=== PATIENT | female | born 1940 | race Caucasian/White ===

== ENCOUNTER 2016-09-20 13:41 | Outpatient (CLI) | payer MEDICARE, OTHER ==
[~2016-09-20] VITALS: Ht 165.1 cm; Wt 69.1 kg
[~2016-09-20 13:41] MED LIST: ADALAT CC60 MG PO; ALENDRONATE SOD70 M1 PO; ALPARAZOLAM0.5 MG PO; ALPRAZOLAM0.5 MG PO; AMBIEN 10MG10 MG PO; AMBIEN CR12.5 MG PO; AMITRIPTYLINE H25 M1 PO; AMITRIPTYLINE25 MG PO; ASMANEX TW0.22 MG/A1 IH; ASPIR-LOW81 MG PO; ASPIRIN 32325 MG/TAB PO; ASPIRIN E.C. 8181 MG PO; CALCIUM600 MG PO; CAMPRAL333 MG PO; CATAPRES-T0.2 MG/24 TD; CELEBREX 200MG200 MG PO; CITALOPRAM HYDR20 MG PO; CITALOPRAM10 MG PO; CORTEF5 MG PO; CYMBALTA; CYMBALTA 60MG60 MG; CYMBALTA 60MG60 MG PO; DAZIDOX10 MG PO; DEMADEX 20MG20 M1 PO; DILANTIN 100MG100 MG PO; DIOVAN; DIOVAN160 MG PO; EFFEXOR XR75 MG/CAP PO; ELAVIL50 MG PO; FERATE27 MG PO; GLUCOSAMIN 500 PO; GLUCOSAMINE500 M1 PO; HYDROCORTISONE5 M1 PO; HYZAAR 25 MG-101 TAB PO; LEVOTHYROXINE PO; LORTAB 5/500 501 TAB PO; LUTEIN1 BEA; LUTEIN20 M1 PO; LUTEIN20 MG PO; MAG-OX 400400 MG/TAB PO; MAGNESIUM OXID420 MG PO; MELATONIN3 M1 PO; MORPHINE 1515 MG/TAB PO; MORPHINE PUMP; MULTIPLE VITAMI1 CAP PO; MULTIPLE VITAMI1 TA5 PO; MVI; NERVE PAIN MED; NEURONTIN300 MG/CAP PO; NEXIUM 40MG40 MG PO; NEXIUM I.V. 40M40 MG IV; NEXIUM PO; NEXIUM40 MG PO; NITRO-DUR0.4 MG/PAT TD; NUCYNTA ER50 MG PO; NUCYNTA50 MG PO; OMEGA 31000 MG PO; OSTEO-BI-FLEX 21 TAB PO; PERCOCET 325 MG1 TA2 PO; POTASSIUM GLUC550 M1 PO; PREMARIN 0.60.625 MG PO; PREMARIN0.625 MG PO; PROCARDIA XL 3030 MG PO; SALMON OIL PO; SINGULAIR; SINGULAIR 110 MG/TAB PO; SINGULAIR10 MG PO; SPIRIVA HANDIH18 MCG IH; SPIRIVA18 MCG IH; ST. JOSEPH81 M1 PO; SYNTHROID0.125 MG PO; SYNTHROID0.125 MG/T PO; SYNTHROID0.137 MG PO; SYNTHROID0.175 MG PO; TESSALON PERLE200 MG PO; TRAMADOL50 MG PO; TRAZODONE150 MG PO; TYLENOL 325MG325 MG PO; TYLENOL 500MG500 MG PO; UNABLE; VITAMIN B COMPL1 TA1 PO; VITAMIN B121000 MC2 SL; VITAMIN C500 MG PO; VITAMIN D1000 IU PO; VITAMIN D31000 IU PO; VITAMIN D32000 I1 PO; VOLTAREN50 MG PO; XANAX 0.5MG0.5 MG PO; ZOLPIDEM5 MG PO; [UNRECOGNIZED DRUG - SUPPLY]; spiriva inhaler
[2016-09-20 14:12] VITALS: BP 115/50; PULSE 81; TEMP 97.7
[2016-09-20] MEDS ORDERED: MIRALAX PA17 GM/Dose PO (15:31)
[2016-09-20] MEDS ORDERED: CALCIUM 600600 MG PO (15:32)
[2016-09-20] MEDS ORDERED: COLACE 100100 MG/CAP PO (15:32)
[2016-09-20] MEDS ORDERED: MOVANTIK25 MG PO (15:35)
[2016-09-20] MEDS ORDERED: NATURAL POTASS595 MG PO (15:36)
[2016-09-20] MEDS ORDERED: OMEGA-31 SGL PO (15:37)
[2016-09-20] MEDS ORDERED: PERCOCET 325 MG1 TA2 PO (15:39)
[2016-09-20] MEDS ORDERED: GLUCOSAMINE 1000 (15:39)
[2016-09-20] MEDS ORDERED: B-121000 MCG PO (15:40)
[2016-09-20] MEDS ORDERED: VITAMIN D31000 I1 PO (15:41)
== END 2016-09-20 15:50 | disposition home or self-care (01) ==
LOC: EUO 13:41
DX: M81.0 Age-related osteoporosis without current pathological fracture (principal)
CPT/HCPCS: J3489

== ENCOUNTER → 2016-12-01 | Outpatient (CLI) | payer MEDICARE, OTHER ==
[~2016-12-01] MED LIST changes: +B-121000 MCG PO; +CALCIUM 600600 MG PO; +COLACE 100100 MG/CAP PO; +GLUCOSAMINE 1000; +MIRALAX PA17 GM/Dose PO; +MOVANTIK25 MG PO; +NATURAL POTASS595 MG PO; +OMEGA-31 SGL PO; +VITAMIN D31000 I1 PO
== END ==
LOC: COL.RAD 11-28 13:00
DX: M25.511 Pain in right shoulder (principal); M19.011 Primary osteoarthritis, right shoulder; M25.711 Osteophyte, right shoulder

== ENCOUNTER → 2018-01-29 | Outpatient (CLI) | payer MEDICARE, OTHER ==
[~2018-01-29] MED LIST changes: +CARDI-OMEGA1000 MG PO; +CYMBALTA 30MG30 MG PO; +LEVOXYL0.125 MG PO; +LIPITOR 40MG TA40 MG PO; -LUTEIN20 MG PO; -OMEGA-31 SGL PO; -VITAMIN D31000 I1 PO; +VITAMIND3 5000 PO
== END ==
LOC: COL.RAD 09:20
DX: M85.89 Other specified disorders of bone density and structure, multiple sites (principal); G93.9 Disorder of brain, unspecified; Z87.81 Personal history of (healed) traumatic fracture; Z96.612 Presence of left artificial shoulder joint; M43.26 Fusion of spine, lumbar region

== ENCOUNTER 2018-05-17 15:18 | Outpatient (CLI) | payer MEDICARE, OTHER ==
[~2018-05-17] VITALS: Ht 165.1 cm; Wt 59.8 kg
[2018-05-17 16:07] VITALS: BP 100/55; PULSE 77; TEMP 98.3
== END 2018-05-17 18:00 | disposition home or self-care (01) ==
LOC: EUO 15:18
DX: M81.0 Age-related osteoporosis without current pathological fracture (principal)
CPT/HCPCS: J3489

== ENCOUNTER → 2018-06-03 | Outpatient (CLI) | payer MEDICARE, OTHER | LOC: COL.RAD 10:32 | DX: D47.2 Monoclonal gammopathy (principal) | CPT/HCPCS: Q9967 ==

== ENCOUNTER → 2018-10-16 | Outpatient (CLI) | payer MEDICARE, OTHER | LOC: COL.RAD 17:19 | DX: G31.9 Degenerative disease of nervous system, unspecified (principal); J32.1 Chronic frontal sinusitis; W19.XXXA Unspecified fall, initial encounter; Z86.73 Personal history of transient ischemic attack (TIA), and cerebral infarction without residual deficits ==

== ENCOUNTER 2018-11-27 17:41 | Inpatient (IN) | payer MEDICARE, OTHER ==
[2018-11-27] VITALS (55 sets, daily range): BP systolic 180; BP diastolic 96; PULSE 87; TEMP 98.3; O2SAT 90–96
[~2018-11-27] VITALS: Ht 162.6 cm; Wt 55.4 kg
[~2018-11-27 17:41] MED LIST changes: +KLOR-CON M2020 MEQ PO; +MACROBID 1100 MG/CAP PO
[2018-11-27 18:44] LABS: BASO # 0.1 (0.0-0.2); BASO % 0.9 % (0.0-2.0); GRAN # 6.1 (1.4-6.5); HEMATOCRIT 38.2 % (37.0-47.0); HEMOGLOBIN 12.5 g/dl (12.5-16.0); LYMPH # 0.9 (1.2-3.4); MEAN CELL VOLUME 86 fl (80.0-100.0); MEAN CORPUSCULAR HEMOGLOBIN 28 pg (27.0-31.0); MEAN CORPUSCULAR HGB CONC 33 g/dl (33.0-37.0); MONO # 0.5 (0.1-0.6); MONO % 6.4 % (1.7-9.3); PLATELET COUNT 307 K/mm3 (130-400); RED BLOOD COUNT 4.43 M/mm3 (4.10-5.30); REDCELL DISTRIBUTION WIDTH-CV 13.2 % (11.5-14.5)
[2018-11-27 18:55] LABS: ALBUMIN 3.8 gm/dL (3.5-5.0); BILIRUBIN,TOTAL 0.6 mg/dL (0.0-1.0); CALCIUM 9.9 mg/dL (8.4-10.2); CREATININE, serum 0.61 (0.52-1.25); POTASSIUM 3.4 mmol/L (3.4-5.0); TOTAL PROTEIN 7.5 gm/dL (6.4-8.2)
[2018-11-27] MEDS ORDERED: CALCIUM CARBON650 M2 PO (20:07)
[2018-11-27] MEDS ORDERED: COLACE 100100 MG/CAP PO ×2 (20:08)
[2018-11-27] MEDS ORDERED: GLUCOSAMIN 500 PO (20:09)
[2018-11-27] MEDS ORDERED: OMEGA-31 SGL PO (20:30)
[2018-11-27] MEDS ORDERED: RECLAST5 MG/100 M IV (20:31)
[2018-11-27] MEDS ORDERED: TRIAMCINOLONE A15 G3 TP (20:32)
[2018-11-27] MEDS ORDERED: TYLENOL 325MG325 MG PO (20:34)
[2018-11-27] MEDS ORDERED: MOVANTIK25 MG PO (20:35)
[2018-11-27] MEDS ORDERED: CYMBALTA 60MG60 MG PO (20:36)
[2018-11-27] MEDS ORDERED: NEURONTIN300 MG/CAP PO (20:37)
[2018-11-27] MEDS ORDERED: XANAX 0.5MG0.5 MG PO (20:38)
[2018-11-27] MEDS ORDERED: NUCYNTA ER50 MG PO (20:40)
[2018-11-27] MEDS ORDERED: FORTAMET500 M1 PO (20:45)
[2018-11-27] MEDS ORDERED: NEXIUM 40MG40 MG PO (20:46)
[2018-11-27] MEDS ORDERED: KLOR-CON M2020 MEQ PO (20:48)
[2018-11-27 22:12] LABS: COLLECTION METHOD CLEAN CATCH
[2018-11-27 22:18] LABS: PH 6 (5-8); SQUAMOUS EPITHELIAL None Seen /hpf; URINE APPEARANCE Clear; URINE BACTERIA None Seen /hpf; URINE BILIRUBIN Negative (NEGATIVE); URINE BLOOD Negative (NEGATIVE); URINE COLOR Yellow; URINE GLUCOSE Negative (NEGATIVE); URINE KETONE Trace (NEGATIVE); URINE LEUKOCYTE ESTERASE Negative (NEGATIVE); URINE NITRATE Negative (NEGATIVE); URINE PROTEIN(semi-quant) 1+ (NEGATIVE); URINE RBC 0-2 /hpf; URINE UROBILINOGEN Negative (NEGATIVE)
--- NOTE | 2018-11-27 23:20 | NUR ---
PT HAS WOUND TO LEFT LOWER BACK COVERED WITH MEPILEX WITH SILVER CLOTH UNDERNEATH - WOUND IS STAGE 3 AND BLANCHABLE. WOUND TO RIGHT HEEL COVERED WITH MEPILEX, STAGE 2 AND BLANCHABLE. MEPILEX ON PT LEFT LATERAL FOOT COVERING CALUS - NO OPEN WOUND. PT KNOWS HER FIRST NAME, HUSBANDS FIRST NAME, SONS FIRST NAME, BUT UNAWARE OF LOCATION OR TIME. PT AND SPOUSE ARE POOR HISTORIANS REGARDING TIME FRAMES AND PAST PERTINENT MEDICAL HISTORY. HISTORY GIVEN IN ED TO NURSE DIFFERENT FROM INFO GIVEN UPON ADMISSION. PT DENIES PAIN AT CURRENT TIME.
[2018-11-28] VITALS (93 sets, daily range): BP systolic 129–173; BP diastolic 61–103; PULSE 72–96; TEMP 98–99.5; O2SAT 89–97
[2018-11-28] MEDS ORDERED: NEURONTIN300 MG/CAP PO (00:03)
[2018-11-28] MEDS ORDERED: XANAX 0.5MG0.5 MG PO (00:06)
[2018-11-28] MEDS ORDERED: MACROBID 1100 MG/CAP PO (00:39)
[2018-11-28 06:10] LABS: BASO # 0.1 (0.0-0.2); BASO % 1.1 % (0.0-2.0); EOS # 0.1 (0.0-0.7); EOS % 1.1 % (0-4.0); GRAN # 3.6 (1.4-6.5); GRAN % 68.7 % (42.2-75.2); HEMOGLOBIN 11.9 g/dl (12.5-16.0); LYMPH # 1.1 (1.2-3.4); LYMPH % 19.8 % (20.0-51.0); MEAN CELL VOLUME 87 fl (80.0-100.0); MEAN CORPUSCULAR HEMOGLOBIN 29 pg (27.0-31.0); MEAN CORPUSCULAR HGB CONC 33 g/dl (33.0-37.0); MEAN PLATELET VOLUME 10.5 fl (7.4-10.4); MONO # 0.5 (0.1-0.6); MONO % 8.7 % (1.7-9.3); PLATELET COUNT 287 K/mm3 (130-400); RED BLOOD COUNT 4.18 M/mm3 (4.10-5.30); REDCELL DISTRIBUTION WIDTH-CV 13.2 % (11.5-14.5)
[2018-11-28 06:14] LABS: HEMATOCRIT 36.4 % (37.0-47.0)
[2018-11-28 06:25] LABS: CALCIUM 9.4 mg/dL (8.4-10.2); CHOLESTEROL RISK RATIO 3.2; CREATININE, serum 0.58 (0.52-1.25); MAGNESIUM 1.8 mg/dL (1.6-2.3); PHOSPHOROUS 3.4 mg/dL (2.5-4.5); POTASSIUM 3.5 mmol/L (3.4-5.0)
--- NOTE | 2018-11-28 07:15 | NUR ---
Bedside report recieved from DENNYS Luna. Patient resting in bed asleep. MIVF infusing at ordered rate to uncomplicated RW peripheral IV. Bed alarm armed. Care assumed.
--- NOTE | 2018-11-28 10:08 | NUR ---
Call made to Dr. Abarca's office and message left with front office coordinator with notification of patient consult.
--- NOTE | 2018-11-28 10:17 | NUR ---
Patient transported to medical room 355 via with chart and all belongings sent with. DENNYS Holden at bedside and patient assited to bed placed in low and locked position, call light within reach, rails upx2, and bed alarm armed. MIVF restarted at ordered rate. at bedside. Prior phone report provided. Care transferred.
--- NOTE | 2018-11-28 11:07 | NUR ---
Patient arrived to room at 1025 from ICU. Came via and accompanied patient to room. Was informed by ICU nurse that patient would be having an MRI this morning, which they have already called and took patient, and Dr. Abarca will be rounding on patient when he is done in clinic. Patient is awake and alert sitting up in bed. So far, patient is answering yes/no questions appropriately and did state it was nice to meet you and called staff by correct name. Lung sounds are clear in all lobes with diminished bases bilaterally. Bowel lounds are active in all quadrants. Heart rate is regulary S1S2. Patient is on telemetry. Patient is noted to have signifigant kyphosis. Cap refil is <3 seconds. Has an ulcer to the righ heel which is covered with clean mepilex Stage 3 wound reported to lumbar spine with clean and dry mepilx covering it. There is also a mepilex in place for protection to low back. Patient does see wound care. Patient has a morphine pain in use and a stimulator pacemaker to the back which is reported to not be functional by family. Skin turgor is poor. Pedal pulses are weak and difficult to find. Does have trace-1+ edema to BLEs. Denies having pain at this time. Call light is within reach.
--- NOTE | 2018-11-28 12:15 | NUR ---
First visit from the base remover. No needs right now.
--- NOTE | 2018-11-28 16:20 | NUR ---
ELZA and ELZA sterling met with the patient and patient's , Amos, to discuss discharge plan. The patient lives in [place] with her . She reports independence with ADLs and has a cane and walker. The patient's PCP is Dr. Dominic Navas and she receives her medications from [facility] or [facility]. She reports no difficulties obtaining her meds. The patient does not have advanced directives in EMR, but she states that she does have them completed and that her PCP's office should have a copy. ELZA sterling contacted and requested a copy from the patient's PCP's office. ELZA then discuss physical therapies recommendation of post-acute rehab vs home with spouse. The patient and her report that they are not interested in post-acute rehab at this time. ELZA discussed home health services. The patient and her were also not interested in home health. The patient plans to return home with her upon discharge. No other identified needs at this time, but SW to continue to follow.
--- NOTE | 2018-11-28 18:49 | NUR ---
Report given to oncoming shift. Patient has had uneventful day. is with patient at this time. Call light is within reach.
--- NOTE | 2018-11-28 21:10 | NUR ---
Patient resting in bed, requesting assistance to bedside commode. 1 assist to bedside commode and then returned to bed. Assessment completed- lungs clear, abdominal sounds active, pulses +3, cap refill <3 seconds, no reports of pain. IVF infusing . Stage III pressure ulcer above coccyx, covered with meplex dressing, will change dressing with next ambulation to bedside commode. No further needs at this time.
[2018-11-28 23:39] LABS: FOLATE (FOLIC ACID) 9.2 ng/mL (7.0-31.4)
[2018-11-29 03:52] VITALS: BP 133/66; PULSE 68; TEMP 98.4
--- NOTE | 2018-11-29 05:26 | NUR ---
Pt slept for most of the night, VSS, no reports of pain. HElp ambulating to bedside commode a few times. No needs at this time.
[2018-11-29 05:59] LABS: BASO # 0.1 (0.0-0.2); EOS # 0.1 (0.0-0.7); EOS % 2.5 % (0-4.0); GRAN # 2.9 (1.4-6.5); GRAN % 60.1 % (42.2-75.2); HEMOGLOBIN 10.7 g/dl (12.5-16.0); LYMPH # 1.3 (1.2-3.4); LYMPH % 26.2 % (20.0-51.0); MEAN CELL VOLUME 87 fl (80.0-100.0); MEAN CORPUSCULAR HEMOGLOBIN 28 pg (27.0-31.0); MEAN CORPUSCULAR HGB CONC 33 g/dl (33.0-37.0); MEAN PLATELET VOLUME 9.9 fl (7.4-10.4); MONO # 0.5 (0.1-0.6); MONO % 9.6 % (1.7-9.3); PLATELET COUNT 269 K/mm3 (130-400); RED BLOOD COUNT 3.79 M/mm3 (4.10-5.30); REDCELL DISTRIBUTION WIDTH-CV 13.3 % (11.5-14.5)
[2018-11-29 06:01] LABS: HEMATOCRIT 32.9 % (37.0-47.0)
[2018-11-29 06:12] LABS: CALCIUM 8.7 mg/dL (8.4-10.2); CREATININE, serum 0.51 (0.52-1.25); POTASSIUM 3.6 mmol/L (3.4-5.0)
--- NOTE | 2018-11-29 07:35 | NUR ---
REPORT GIVEN TO DENNYS ANDREWS. PATIENT HAS NO NEEDS AT THIS TIME.
[2018-11-29 07:47] VITALS: BP 116/56; PULSE 65; TEMP 97.6
--- NOTE | 2018-11-29 07:59 | NUR ---
Received morning report, son approched desk and requsted patient have assistance with bathing and ordering breakfast. Went to room for bedside report and patient was sitting up in bed reviewing menu. She was able to pick out choices and staff called to flavia with her requests. Has been appropriate in verbalizing needs. Denies pain. Call light is within reach.
--- NOTE | 2018-11-29 10:49 | NUR ---
Patient has had EEG, MRA and speech therapy this morning. Has tolerated well. Offered a shower and stated she will take one after lunch. She is alert and slightly oriented. Speech is appropriate to situation. Lungs are clear in all bases. Heart is regular rate and rhythm. Noted to have poor skin turgor, and is pale, warm and dry. Stage III ulcer to left lumbar spine and ulcer noted to right heel. Transfers with 1:1 assist. Denies pain. is at bedside. Call light is within reach.
[2018-11-29 12:00] VITALS: BP 108/60; PULSE 66; TEMP 98.3
--- NOTE | 2018-11-29 13:50 | NUR ---
Primary nurse was assisted with [id number] patient care by [employer] student Stanley Perrin and [employer] instructor Aretha Harp RN-.
[2018-11-29 16:33] VITALS: BP 124/64; PULSE 70; TEMP 98.4
[2018-11-29 19:05] VITALS: BP 163/78; PULSE 67; TEMP 97.7
--- NOTE | 2018-11-29 19:05 | NUR ---
Pt resting on side of bed. at bedside. No distress noted. Pt denies pain. Neurological assessemnt WNL. Stage III pressure ulcer with Mepilex applied. HS Glucerna given. Lungs clear. Resp even/unlabored. No other needs noted at this time. Will continue to monitor.
--- NOTE | 2018-11-29 20:30 | NUR ---
Pt up to BSC with one assist and walker. Well tolerated by patient. Voiding clear, yellow urine.
--- NOTE | 2018-11-29 21:20 | NUR ---
Pt reports mild discomfort on L lumbar stage III pressure ulcer. Reports that it feels like the mepilex is pulling. Pt refused to have dressing changed.
[2018-11-29 23:50] VITALS: BP 150/80; PULSE 73; TEMP 98
[2018-11-30 03:24] VITALS: BP 152/77; PULSE 68; TEMP 97.8
--- NOTE | 2018-11-30 03:25 | NUR ---
Pt asleep. No distress noted. Easily arousable. Neurological assessment WNL. VSS. No needs noted.
--- NOTE | 2018-11-30 05:49 | NUR ---
Pt resting this AM. Called out to use restroom. Patient is mildly confused when nurse enters room. Pt is oriented x3, but is confused about which way to turn to the BSC and back and what the telemetry box is. Pt is easily reoriented.
[2018-11-30 07:07] LABS: CALCIUM 8.5 mg/dL (8.4-10.2); CREATININE, serum 0.54 (0.52-1.25); POTASSIUM 3.9 mmol/L (3.4-5.0)
--- NOTE | 2018-11-30 07:23 | NUR ---
REPORT RECEIVED FROM DENNYS MCKINNEY. PT AWAKE ALERT AND ORIENTED. PT'S ABOUT TO ORDER BREAKFAST. PT DENIED PAIN. CALL LIGHT IN REACH. NO CONCERN AT THIS TIME.
[2018-11-30 08:29] VITALS: BP 133/67; PULSE 72; TEMP 97.9
--- NOTE | 2018-11-30 08:45 | NUR ---
Pt resting in bed comfortably and denied pain. Call light in reach. No concern at this time.
[2018-11-30 09:13] LABS: BASO # 0.1 (0.0-0.2); BASO % 1.8 % (0.0-2.0); EOS # 0.2 (0.0-0.7); EOS % 4.9 % (0-4.0); GRAN % 60.5 % (42.2-75.2); HEMOGLOBIN 10.7 g/dl (12.5-16.0); LYMPH # 1.1 (1.2-3.4); LYMPH % 22.8 % (20.0-51.0); MEAN CELL VOLUME 88 fl (80.0-100.0); MEAN CORPUSCULAR HEMOGLOBIN 28 pg (27.0-31.0); MEAN CORPUSCULAR HGB CONC 32 g/dl (33.0-37.0); MEAN PLATELET VOLUME 9.9 fl (7.4-10.4); MONO # 0.5 (0.1-0.6); MONO % 9.6 % (1.7-9.3); PLATELET COUNT 263 K/mm3 (130-400); RED BLOOD COUNT 3.79 M/mm3 (4.10-5.30); REDCELL DISTRIBUTION WIDTH-CV 13.3 % (11.5-14.5)
[2018-11-30 09:25] LABS: HEMATOCRIT 33.4 % (37.0-47.0)
--- NOTE | 2018-11-30 10:17 | NUR ---
Visit attempted and pt sleeping soundly in bed. Call light in reach.
--- NOTE | 2018-11-30 12:27 | NUR ---
Pt stting in chair and talking to drs. Pt's is going home today. No concern. Call light in reach.
[2018-11-30 13:15] VITALS: BP 150/62; PULSE 64; TEMP 98
--- NOTE | 2018-11-30 13:16 | NUR ---
The patient is to discharge today, 11/30. The patient informed the nurse about receiving home health services. Nurse contacted ELZA. ELZA provided the patient with a list of home health agencies from Medicare.gov. The patient chose [facility]. ELZA faxed the referral. ELZA contacted [facility] and left a message for the home health nurse. ELZA will fax discharge orders when they are ready. There are no additional needs at this time.
--- NOTE | 2018-11-30 13:53 | NUR ---
Pt having lunch in chair and talking to family. Pt's waiting for Dr. Pizano to put dc order in. Call light in reach..
[2018-11-30 16:11] VITALS: BP 127/65; PULSE 74; TEMP 98.6
--- NOTE | 2018-11-30 17:35 | NUR ---
Pt an went over discharge instruction and able to verbalize understaning of dc instruction. Pt signed dc paper and getting dressed at this time. Call light in reach.
--- NOTE | 2018-12-02 13:04 | NUR ---
[facility] contacted SW to inform that the patient actually lives outside of the region they serve and that they would not be able to accept the patient for services. SW contacted the patient and her , Amos, answered the phone. Amos informed ELZA that the patient is napping at this time and asked for SW to call back later. SW to attempt to contact the patient again at a later time.
--- NOTE | 2018-12-02 15:19 | NUR ---
SW attempted to contact the patient again to discuss other home health agencies. SW left a voicemail.
--- NOTE | 2018-12-03 15:02 | NUR ---
ELZA was able to get in contact with the patient. The patient reports that her and her discussed home health some more, and that she has decided she does not want home health. No additional needs at this time.
== END 2018-11-30 17:47 | disposition home or self-care (01) | DRG 917 ==
LOC: COL.ER 17:41 → ICU 19:52 → MEDICAL 11-28 08:21 → ICU 11-28 09:37 → IMCU 11-28 09:37 → MEDICAL 11-28 10:32
PROVIDERS: Emergency Medicine; Nurse Practitioner; Physician Assistant; ADMIT Hospitalist
DX: T40.2X1A Poisoning by other opioids, accidental (unintentional), initial encounter (principal); G92 Toxic encephalopathy; E44.0 Moderate protein-calorie malnutrition; Z68.1 Body mass index [BMI] 19.9 or less, adult; F11.20 Opioid dependence, uncomplicated; R47.01 Aphasia; F33.1 Major depressive disorder, recurrent, moderate; I10 Essential (primary) hypertension; I25.10 Atherosclerotic heart disease of native coronary artery without angina pectoris; E11.42 Type 2 diabetes mellitus with diabetic polyneuropathy; G89.29 Other chronic pain; E03.9 Hypothyroidism, unspecified; E53.8 Deficiency of other specified B group vitamins; Z85.828 Personal history of other malignant neoplasm of skin; Z91.14 Patient's other noncompliance with medication regimen; I73.9 Peripheral vascular disease, unspecified; L89.159 Pressure ulcer of sacral region, unspecified stage; L89.619 Pressure ulcer of right heel, unspecified stage; L89.899 Pressure ulcer of other site, unspecified stage; M48.02 Spinal stenosis, cervical region; R56.9 Unspecified convulsions; G62.1 Alcoholic polyneuropathy; F10.11 Alcohol abuse, in remission
CPT/HCPCS: 99223-AI; 99233-AI; G0378; J7030

== ENCOUNTER → 2018-12-17 | Outpatient (CLI) | payer MEDICARE, OTHER ==
[~2018-12-17] MED LIST changes: +CALCIUM CARBON650 M2 PO; +FORTAMET500 M1 PO; +OMEGA-31 SGL PO; +RECLAST5 MG/100 M IV; +TRIAMCINOLONE A15 G3 TP
== END ==
LOC: ZCOL.LAB 11:26
DX: L89.622 Pressure ulcer of left heel, stage 2 (principal)

== ENCOUNTER → 2019-01-03 | Outpatient (CLI) | payer MEDICARE, OTHER | LOC: COL.RAD 14:00 | DX: K40.90 Unilateral inguinal hernia, without obstruction or gangrene, not specified as recurrent (principal); K57.30 Diverticulosis of large intestine without perforation or abscess without bleeding; Z96.89 Presence of other specified functional implants; Z90.710 Acquired absence of both cervix and uterus; Z98.1 Arthrodesis status ==

== ENCOUNTER 2019-01-16 13:33 | Emergency (ER) | payer MEDICARE, OTHER ==
[~2019-01-16] VITALS: Ht 165.1 cm; Wt 56.8 kg
[2019-01-16 13:38] VITALS: TEMP 97.8
[2019-01-16 14:19] LABS: BASO # 0.1 (0.0-0.2); BASO % 0.9 % (0.0-2.0); EOS # 0.1 (0.0-0.7); EOS % 0.8 % (0-4.0); GRAN # 6.9 (1.4-6.5); GRAN % 77.4 % (42.2-75.2); HEMATOCRIT 38.6 % (37.0-47.0); HEMOGLOBIN 12.1 g/dl (12.5-16.0); LYMPH # 1.1 (1.2-3.4); LYMPH % 12.1 % (20.0-51.0); MEAN CELL VOLUME 87 fl (80.0-100.0); MEAN CORPUSCULAR HEMOGLOBIN 27 pg (27.0-31.0); MEAN CORPUSCULAR HGB CONC 31 g/dl (33.0-37.0); MEAN PLATELET VOLUME 10.3 fl (7.4-10.4); MONO # 0.8 (0.1-0.6); MONO % 8.5 % (1.7-9.3); PLATELET COUNT 305 K/mm3 (130-400); RED BLOOD COUNT 4.46 M/mm3 (4.10-5.30); REDCELL DISTRIBUTION WIDTH-CV 14.4 % (11.5-14.5)
[2019-01-16 14:29] LABS: ALANINE AMINOTRANSFERASE < 6 U/L (9-52); ALBUMIN 3.5 gm/dL (3.5-5.0); ALKALINE PHOSPHATASE 75 U/L (50-136); ANION GAP 8 mmol/L (7-16); AST,SGOT 28 U/L (15-37); BILIRUBIN,TOTAL 0.3 mg/dL (0.0-1.0); BLOOD UREA NITROGEN 19 mg/dL (7-17); CALCIUM 9.3 mg/dL (8.4-10.2); CARBON DIOXIDE 30 mmol/L (22-30); CHLORIDE 103 mmol/L (98-107); CREATININE, serum 0.65 (0.52-1.25); GLUCOSE 98 mg/dL (74-106); POTASSIUM 4.8 mmol/L (3.4-5.0); SODIUM 141 mmol/L (137-145); TOTAL PROTEIN 7.1 gm/dL (6.4-8.2)
[2019-01-16 16:25] VITALS: BP 110/55; PULSE 82
== END 2019-01-16 16:26 | disposition home or self-care (01) ==
LOC: COL.ER 13:33
PROVIDERS: Physician Assistant
DX: L89.229 Pressure ulcer of left hip, unspecified stage (principal); L89.621 Pressure ulcer of left heel, stage 1; L89.611 Pressure ulcer of right heel, stage 1; E11.42 Type 2 diabetes mellitus with diabetic polyneuropathy; E03.9 Hypothyroidism, unspecified; I25.10 Atherosclerotic heart disease of native coronary artery without angina pectoris; Z86.73 Personal history of transient ischemic attack (TIA), and cerebral infarction without residual deficits; Z90.49 Acquired absence of other specified parts of digestive tract; Z90.710 Acquired absence of both cervix and uterus; Z79.84 Long term (current) use of oral hypoglycemic drugs

== ENCOUNTER → 2019-02-17 | Outpatient (CLI) | payer MEDICARE, OTHER | LOC: COL.RAD 10:01 | DX: M19.011 Primary osteoarthritis, right shoulder (principal); M25.551 Pain in right hip; Z87.828 Personal history of other (healed) physical injury and trauma | CPT/HCPCS: A9503 ==

== ENCOUNTER 2019-02-23 01:24 | Observation (INO) | payer MEDICARE, OTHER ==
[~2019-02-23] VITALS: Ht 165.1 cm; Wt 50.5 kg
[2019-02-23 02:09] LABS: HEMOGLOBIN 11.9 g/dl (12.5-16.0); MEAN CELL VOLUME 86 fl (80.0-100.0); MEAN CORPUSCULAR HEMOGLOBIN 28 pg (27.0-31.0); MEAN CORPUSCULAR HGB CONC 32 g/dl (33.0-37.0); MEAN PLATELET VOLUME 10.7 fl (7.4-10.4); PLATELET COUNT 231 K/mm3 (130-400); RED BLOOD COUNT 4.32 M/mm3 (4.10-5.30); REDCELL DISTRIBUTION WIDTH-CV 15.8 % (11.5-14.5)
[2019-02-23 02:17] LABS: ALBUMIN 3.8 gm/dL (3.5-5.0); BILIRUBIN,TOTAL 0.5 mg/dL (0.0-1.0); CALCIUM 9.8 mg/dL (8.4-10.2); CREATININE, serum 0.74 (0.52-1.25); POTASSIUM 3.6 mmol/L (3.4-5.0); TOTAL PROTEIN 7.6 gm/dL (6.4-8.2)
[2019-02-23 02:34] LABS: BAND 6 % (0-10); LYMPHOCYTE 9 % (20.0-51.0); NEUTROPHILS 80 % (42.0-75.2)
[2019-02-23 02:37] LABS: ANISOCYTOSIS 1+; HYPOCHROMIA 1+; PLATELET ESTIMATE NORMAL (NORMAL)
[2019-02-23 02:45] LABS: TROPONIN-I 0.024 ng/mL (0.000-0.035)
[2019-02-23 02:55] LABS: COLLECTION METHOD CLEAN CATCH
[2019-02-23 03:01] LABS: MUCOUS Present /lpf; PH 5 (5-8); SQUAMOUS EPITHELIAL 0-2 /hpf; URINE APPEARANCE Clear; URINE BACTERIA None Seen /hpf; URINE BILIRUBIN Negative (NEGATIVE); URINE BLOOD 1+ (NEGATIVE); URINE COLOR Yellow; URINE GLUCOSE Negative (NEGATIVE); URINE KETONE Trace (NEGATIVE); URINE LEUKOCYTE ESTERASE Negative (NEGATIVE); URINE NITRATE Negative (NEGATIVE); URINE PROTEIN(semi-quant) 1+ (NEGATIVE); URINE RBC 0-2 /hpf; URINE UROBILINOGEN Negative (NEGATIVE)
[2019-02-23 07:03] LABS: ARTERIAL BLD GAS O2 SATURATION 95.9 % (92-100); ARTERIAL BLD GAS TCO2 CT 31.9; ARTERIAL BLOOD GAS BASE EXCESS 5.6 (-2-2); ARTERIAL BLOOD GAS HCO3 30.5 meq/L (22-26); ARTERIAL BLOOD GAS PCO2 45.5 mmHg (35-45); ARTERIAL BLOOD GAS PO2 83.7 mmHg (80-100); ARTERIAL BLOOD GAS pH 7.44 (7.35-7.45)
[2019-02-23 09:05] VITALS: BP 124/55; PULSE 79; TEMP 98.3
--- NOTE | 2019-02-23 09:27 | NUR ---
Pt was admitted to room 355 from ED. She is awake and A/Ox4. She answers questions approriately but occasional word salad is noted. She is constantly bent over (head touching knees in bed.) Per pt and family that is the most comfortable post back surgery. Home would vac noted to left lower back. Family does not have current medication list on hand, son to go home and bring one back. Pharm and allergies reviewed. Saline lock to left FA is free of complications. Pt and family oriented to room and to staff, expressed understanding. Denies any other needs.
[2019-02-23] MEDS ORDERED: DESYREL 100MG100 MG PO (09:43)
[2019-02-23] MEDS ORDERED: PROCARDIA XL 6060 MG PO (09:45)
[2019-02-23] MEDS ORDERED: PERCOCET 325 MG1 TAB PO ×2 (09:49→22:53)
[2019-02-23] MEDS ORDERED: HYZAAR 25 MG-101 TAB PO (09:51)
[2019-02-23] MEDS ORDERED: DEPAKOTE ER 50500 MG PO (09:52)
[2019-02-23 12:27] VITALS: BP 111/47; PULSE 66; TEMP 97.9
[2019-02-23 12:30] VITALS: BP 111/51
--- NOTE | 2019-02-23 13:24 | NUR ---
Pt continues to rest in bed. Pt and deny any other needs. Cont. pulse ox on and functioning. Denies any other needs.
[2019-02-23 16:43] VITALS: BP 130/49; PULSE 73; TEMP 97.9
--- NOTE | 2019-02-23 18:16 | NUR ---
Pt is much more awake at this time. Cont. pulse ox remains on and readings in high 90s on room air. Pt continues to have word salad when conversing but otherwise neuro checks are unremarkable.
--- NOTE | 2019-02-23 20:10 | NUR ---
Shift assessment complete. Pt resting in bed, sleepy but easy to wake, pt oriented at this time but remains forgetfull et has difficulty finding words. Pt reports "not much" pain at this time. IV patent. Tele in place. Wound noted to L buttock/hip area c home wound vac in place et functioning. Pt denies further needs at this time. Call light in reach, bed alarm on. Will continue to monitor.
[2019-02-23 20:26] VITALS: BP 149/62; PULSE 62; TEMP 98.7
[2019-02-24 00:44] VITALS: BP 138/59; PULSE 62; TEMP 97.3
[2019-02-24 04:02] VITALS: BP 141/58; PULSE 59; TEMP 97.7
[2019-02-24 07:04] LABS: BASO # 0.1 (0.0-0.2); BASO % 1.2 % (0.0-2.0); EOS # 0.4 (0.0-0.7); EOS % 7.2 % (0-4.0); GRAN # 2.9 (1.4-6.5); GRAN % 58.9 % (42.2-75.2); HEMOGLOBIN 11.5 g/dl (12.5-16.0); LYMPH # 1.2 (1.2-3.4); LYMPH % 24.3 % (20.0-51.0); MEAN CELL VOLUME 87 fl (80.0-100.0); MEAN CORPUSCULAR HEMOGLOBIN 27 pg (27.0-31.0); MEAN CORPUSCULAR HGB CONC 31 g/dl (33.0-37.0); MEAN PLATELET VOLUME 11.1 fl (7.4-10.4); MONO # 0.4 (0.1-0.6); PLATELET COUNT 230 K/mm3 (130-400); RED BLOOD COUNT 4.19 M/mm3 (4.10-5.30); REDCELL DISTRIBUTION WIDTH-CV 16.1 % (11.5-14.5)
[2019-02-24 07:16] LABS: ALBUMIN 3.1 gm/dL (3.5-5.0); BILIRUBIN,TOTAL 0.3 mg/dL (0.0-1.0); CALCIUM 9.3 mg/dL (8.4-10.2); CREATININE, serum 0.64 (0.52-1.25); PHOSPHOROUS 3.8 mg/dL (2.5-4.5); POTASSIUM 3.5 mmol/L (3.4-5.0); TOTAL PROTEIN 6.3 gm/dL (6.4-8.2)
[2019-02-24 07:17] LABS: HEMATOCRIT 36.6 % (37.0-47.0)
--- NOTE | 2019-02-24 07:50 | NUR ---
report from Saranya NOYOLA.
[2019-02-24 08:28] VITALS: BP 163/73; PULSE 58; TEMP 98.5
--- NOTE | 2019-02-24 10:38 | NUR ---
Dr Martinez faxed pain pump info and forwarded to Nica TELLEZ. Contacted wound care and Mauri NOYOLA will return call.
--- NOTE | 2019-02-24 11:13 | NUR ---
Initial visit; Patient and thanked Merchandise Coordinator for looking in on her, wishing her well and offering God's blessings.
[2019-02-24 12:00] VITALS: BP 116/69; PULSE 61; TEMP 98.2
--- NOTE | 2019-02-24 13:25 | NUR ---
SW attended clinical rounds. Patient lives at home with her . Patient reports she has been independent with ADLs until recently. Patient's PCP is Dr Hatch and she obtains prescriptions from [facility] or [facility] mail in. Patient has a walker but no other DME is reported. Patient does not have any home health services. Patient and have declined home health and post acute rehab during previous admissions. Patient will be seen by PT/OT for recommendations. SW will continue to follow to ensure a safe discharge plan.
--- NOTE | 2019-02-24 18:57 | NUR ---
Report to Saranya NOYOLA.
[2019-02-24 19:33] VITALS: BP 133/50; PULSE 60; TEMP 97.5
--- NOTE | 2019-02-24 19:40 | NUR ---
Shift assessment complete. Pt resting in bed, awake, a&o c continued forgetfullness, cooperative c cares. Pt c/o pain to back et R heel; PRN Adilene provided c scheduled APAP per pt req. Pt denies any other c/o. IV patent. Home wound vac in place to L buttock ulcer. Pt denies further needs. Call light in reach, bed alarm on. Will monitor.
[2019-02-24 23:42] VITALS: BP 114/43; PULSE 63; TEMP 97.8
[2019-02-25 03:58] VITALS: BP 142/66; PULSE 59; TEMP 97.9
[2019-02-25 07:58] VITALS: BP 161/64; PULSE 63; TEMP 97.4
--- NOTE | 2019-02-25 08:00 | NUR ---
Report received from Saranya NOYOLA. Shift assessment complete. Patient resting in bed, A&O, very cooperative with morning meds and cares. IV patent. Patient reports pain to right heel and left hip/back. Patient denies having any other needs at this time. Breakfast ordered. Call light within reach.
--- NOTE | 2019-02-25 11:32 | NUR ---
DISCHARGE INSTRUCTIONS GIVEN. EDUCATION GIVEN ON DIAGNOSIS AND DISCHARGE MEDS REVIEWED. IV ISCONTINUED TIP IN TACT, NO INFILTRATION AND NO REDNESS. PATIENT HAS ALL BELONGINGS. PATIENT WILL BE WALKED OUT BY AIDE WITH SPOUSE PRESENT. SPOUSE OBSERVED US COMPLETE THE DRESSING CHANGE AND HAD NO QUESTIONS.
[2019-02-25 12:18] VITALS: BP 150/81; PULSE 60; TEMP 97.3
--- NOTE | 2019-02-25 12:30 | NUR ---
Patient took personal wound vac home.
--- NOTE | 2019-02-25 12:40 | NUR ---
Nursing staff walked patient outside via wheelchair to vehicle.
== END 2019-02-25 12:40 | disposition home or self-care (01) ==
LOC: COL.ER 01:24 → MEDICAL 07:04
PROVIDERS: Emergency Medicine; ADMIT Family Medicine
DX: G93.41 Metabolic encephalopathy (principal); G89.29 Other chronic pain; M40.209 Unspecified kyphosis, site unspecified; I25.10 Atherosclerotic heart disease of native coronary artery without angina pectoris; I10 Essential (primary) hypertension; F32.9 Major depressive disorder, single episode, unspecified; F41.9 Anxiety disorder, unspecified; G62.9 Polyneuropathy, unspecified; T81.89XA Other complications of procedures, not elsewhere classified, initial encounter; E03.9 Hypothyroidism, unspecified; E11.9 Type 2 diabetes mellitus without complications; Z90.710 Acquired absence of both cervix and uterus; Z85.828 Personal history of other malignant neoplasm of skin; Z79.84 Long term (current) use of oral hypoglycemic drugs; Z91.048 Other nonmedicinal substance allergy status; Z88.8 Allergy status to other drugs, medicaments and biological substances
CPT/HCPCS: 99222-AI; 99233-AI; 99239; G0378; J1650; J7030

== ENCOUNTER → 2019-02-27 | Outpatient (CLI) | payer MEDICARE, OTHER ==
[~2019-02-27] MED LIST changes: +DEPAKOTE ER 50500 MG PO; +DESYREL 100MG100 MG PO; +PERCOCET 325 MG1 TAB PO; +PROCARDIA XL 6060 MG PO
== END ==
LOC: COL.RAD 13:00
DX: M16.11 Unilateral primary osteoarthritis, right hip (principal)
CPT/HCPCS: J3301; Q9967

== ENCOUNTER 2019-04-12 17:14 | Emergency (ER) | payer MEDICARE, OTHER ==
[~2019-04-12] VITALS: Ht 167.6 cm; Wt 68.2 kg
[2019-04-12 17:20] VITALS: TEMP 98.1
[2019-04-12 18:08] LABS: BASO % 0.5 % (0.0-2.0); EOS % 0.2 % (0-4.0); GRAN # 4.1 (1.4-6.5); GRAN % 75.8 % (42.2-75.2); HEMATOCRIT 39.6 % (37.0-47.0); HEMOGLOBIN 12.5 g/dl (12.5-16.0); LYMPH # 0.7 (1.2-3.4); LYMPH % 13.6 % (20.0-51.0); MEAN CELL VOLUME 87 fl (80.0-100.0); MEAN CORPUSCULAR HEMOGLOBIN 27 pg (27.0-31.0); MEAN CORPUSCULAR HGB CONC 32 g/dl (33.0-37.0); MEAN PLATELET VOLUME 9.7 fl (7.4-10.4); MONO # 0.5 (0.1-0.6); PLATELET COUNT 261 K/mm3 (130-400); RED BLOOD COUNT 4.56 M/mm3 (4.10-5.30); REDCELL DISTRIBUTION WIDTH-CV 14.2 % (11.5-14.5)
[2019-04-12 18:17] LABS: ALANINE AMINOTRANSFERASE < 6 U/L (9-52); ALBUMIN 3.7 gm/dL (3.5-5.0); ALKALINE PHOSPHATASE 87 U/L (50-136); ANION GAP 6 mmol/L (7-16); AST,SGOT 26 U/L (15-37); BILIRUBIN,TOTAL 0.3 mg/dL (0.0-1.0); BLOOD UREA NITROGEN 17 mg/dL (7-17); C-REACTIVE PROTEIN 1.7 mg/dL (0.0-0.9); CALCIUM 9.9 mg/dL (8.4-10.2); CARBON DIOXIDE 35 mmol/L (22-30); CHLORIDE 99 mmol/L (98-107); CREATININE, serum 0.59 (0.52-1.25); GLUCOSE 125 mg/dL (74-106); SODIUM 140 mmol/L (137-145); TOTAL PROTEIN 7.3 gm/dL (6.4-8.2)
[2019-04-12 18:27] LABS: TROPONIN-I < 0.012 ng/mL (0.000-0.035)
[2019-04-12 19:13] LABS: COLLECTION METHOD CATHETER
[2019-04-12 19:23] LABS: MUCOUS Present /lpf; PH 9 (5-8); SQUAMOUS EPITHELIAL None Seen /hpf; URINE APPEARANCE Cloudy; URINE BACTERIA None Seen /hpf; URINE BILIRUBIN Negative (NEGATIVE); URINE BLOOD Negative (NEGATIVE); URINE COLOR Yellow; URINE GLUCOSE Negative (NEGATIVE); URINE KETONE Negative (NEGATIVE); URINE LEUKOCYTE ESTERASE Negative (NEGATIVE); URINE NITRATE Negative (NEGATIVE); URINE PROTEIN(semi-quant) Negative (NEGATIVE); URINE UROBILINOGEN Negative (NEGATIVE)
[2019-04-12 20:31] VITALS: BP 167/82; PULSE 83
== END 2019-04-12 20:45 | disposition home or self-care (01) ==
LOC: COL.ER 17:14
PROVIDERS: Emergency Medicine
DX: R53.1 Weakness (principal); R53.81 Other malaise; I25.10 Atherosclerotic heart disease of native coronary artery without angina pectoris; E11.9 Type 2 diabetes mellitus without complications; I10 Essential (primary) hypertension; E78.5 Hyperlipidemia, unspecified; F32.9 Major depressive disorder, single episode, unspecified; F41.9 Anxiety disorder, unspecified; Z86.73 Personal history of transient ischemic attack (TIA), and cerebral infarction without residual deficits; Z73.6 Limitation of activities due to disability; Z79.84 Long term (current) use of oral hypoglycemic drugs

== ENCOUNTER 2019-04-29 19:34 | Inpatient (IN) | payer MEDICARE, OTHER ==
[~2019-04-29] VITALS: Wt 56.5 kg
[2019-04-29 20:25] LABS: BASO % 0.5 % (0.0-2.0); EOS # 0.1 (0.0-0.7); EOS % 1.8 % (0-4.0); GRAN # 3.9 (1.4-6.5); GRAN % 69.5 % (42.2-75.2); HEMATOCRIT 38.5 % (37.0-47.0); HEMOGLOBIN 12.3 g/dl (12.5-16.0); LYMPH # 1.1 (1.2-3.4); LYMPH % 18.9 % (20.0-51.0); MEAN CELL VOLUME 89 fl (80.0-100.0); MEAN CORPUSCULAR HEMOGLOBIN 28 pg (27.0-31.0); MEAN CORPUSCULAR HGB CONC 32 g/dl (33.0-37.0); MEAN PLATELET VOLUME 10.4 fl (7.4-10.4); MONO # 0.5 (0.1-0.6); MONO % 8.6 % (1.7-9.3); PLATELET COUNT 232 K/mm3 (130-400); RED BLOOD COUNT 4.35 M/mm3 (4.10-5.30); REDCELL DISTRIBUTION WIDTH-CV 14.6 % (11.5-14.5)
[2019-04-29 20:34] LABS: ALANINE AMINOTRANSFERASE 8 U/L (9-52); ALBUMIN 3.9 gm/dL (3.5-5.0); ALKALINE PHOSPHATASE 81 U/L (50-136); ANION GAP 6 mmol/L (7-16); AST,SGOT 27 U/L (15-37); BILIRUBIN,TOTAL 0.3 mg/dL (0.0-1.0); BLOOD UREA NITROGEN 15 mg/dL (7-17); CALCIUM 9.7 mg/dL (8.4-10.2); CARBON DIOXIDE 34 mmol/L (22-30); CHLORIDE 100 mmol/L (98-107); CREATININE, serum 0.59 (0.52-1.25); GLUCOSE 91 mg/dL (74-106); POTASSIUM 3.7 mmol/L (3.4-5.0); SODIUM 141 mmol/L (137-145); TOTAL PROTEIN 7.3 gm/dL (6.4-8.2)
[2019-04-29 20:35] LABS: C-REACTIVE PROTEIN < 0.5 mg/dL (0.0-0.9)
[2019-04-29 20:45] LABS: TROPONIN-I < 0.012 ng/mL (0.000-0.035)
[2019-04-29 20:52] LABS: MUCOUS Present /lpf; PH 7 (5-8); URINE APPEARANCE Cloudy; URINE BACTERIA None Seen /hpf; URINE BILIRUBIN Negative (NEGATIVE); URINE BLOOD Negative (NEGATIVE); URINE COLOR Yellow; URINE GLUCOSE Negative (NEGATIVE); URINE KETONE Trace (NEGATIVE); URINE LEUKOCYTE ESTERASE 3+ (NEGATIVE); URINE NITRATE Negative (NEGATIVE); URINE PROTEIN(semi-quant) Negative (NEGATIVE); URINE RBC 20-50 /hpf; URINE UROBILINOGEN Negative (NEGATIVE)
[2019-04-29] MEDS ORDERED: MORPHINE (21:17)
[2019-04-29 22:59] LABS: MAGNESIUM 1.8 mg/dL (1.6-2.3)
[2019-04-29 23:02] VITALS: BP 172/86; PULSE 83; TEMP 98.2
[2019-04-29 23:29] LABS: TSH w REFLEX 7.98 uIU/mL (0.465-4.680)
[2019-04-30] VITALS (9 sets, daily range): BP systolic 109–182; BP diastolic 51–86; PULSE 59–83; TEMP 97.2–98.8
--- NOTE | 2019-04-30 | NUR ---
Admission assessment complete. Patient in bed, awake. Oriented to person and place, but not time or situation. Patient very forgetful, often repeating herself. Patient told VALUE STREAM COACH, MOLDED FRAMES ASSEMBLER, and myself that a rhea fell off of her ring. When looking at her ring, it does not appear that a rhea is missing. Asked patient if she would like her jewelry in the safe, she agreed to do so. Notified Junior Administrative Assistant. 3 rings from left hand and necklace to be placed in safe. Patient incontinent of urine, just after stating she could tell us when she needed to use the restroom. Changed, harmeet-care provided. Removed brief d/t stage 3 pressure ulcer on left buttock. Site cleansed, and packed with a WTD drsg. Loosely attached d/t patient unable to turn on her side. Left elbow also noted to be reddened, with a small abrasion. Will place new dressing on elbow. Right heel noted to be dry/cracked with two small wounds. Closed, no drainage. Will also place a dressing on right heel per pt request. Groin also reddened and irritated. Buttocks/coccyx purple/red and does not supriya. Placed pillow under patient's left hip. Patient will be turned every 2 hours. Admission assessment form partially filled out d/t patient mentation. Patient was also unable to go through [facility] rec with RN. Per her request, she wants to do it tomorrow. YUMIKO Torres notified. Will continue to monitor patient.
--- NOTE | 2019-04-30 00:05 | NUR ---
BLE noted to be marcus/warm/swollen. Patient denies pain in BLE. Will continue to monitor. VTE is Lovenox.
--- NOTE | 2019-04-30 00:55 | NUR ---
3 rings from left hand and necklace removed and placed in envelope. Juan Miguel OkeefeToby Maker placed in safe. Patient aware.
--- NOTE | 2019-04-30 01:08 | NUR ---
Patient now refusing to have 3 rings and necklace taken to safe. Notified Mailroom Coordinator.
[2019-04-30] MEDS ORDERED: HAIRSKINNAILS PO (01:12)
[2019-04-30] MEDS ORDERED: ESTRACE0.1 MG/GM VG (01:13)
[2019-04-30] MEDS ORDERED: DESYREL 100MG100 MG PO (01:14)
--- NOTE | 2019-04-30 03:19 | NUR ---
External catheter attached to patient, suction on. Will continue to monitor.
--- NOTE | 2019-04-30 06:06 | NUR ---
Patient found OOB with bed alarm sounding. Patient stated she needed to use the BSC. External catheter removed, pt assisted to BSC. Patient back to bed with assist x2. Drsg on bottom unable to be assessed by RN because pt was unwilling to turn. Will continue to monitor.
[2019-04-30 06:10] LABS: BASO % 0.6 % (0.0-2.0); EOS # 0.1 (0.0-0.7); EOS % 0.8 % (0-4.0); GRAN # 4.5 (1.4-6.5); GRAN % 68.8 % (42.2-75.2); HEMOGLOBIN 11.4 g/dl (12.5-16.0); LYMPH # 1.3 (1.2-3.4); LYMPH % 20.3 % (20.0-51.0); MEAN CELL VOLUME 87 fl (80.0-100.0); MEAN CORPUSCULAR HEMOGLOBIN 28 pg (27.0-31.0); MEAN CORPUSCULAR HGB CONC 32 g/dl (33.0-37.0); MEAN PLATELET VOLUME 10.6 fl (7.4-10.4); MONO # 0.6 (0.1-0.6); MONO % 8.9 % (1.7-9.3); PLATELET COUNT 219 K/mm3 (130-400); RED BLOOD COUNT 4.13 M/mm3 (4.10-5.30); REDCELL DISTRIBUTION WIDTH-CV 14.5 % (11.5-14.5)
[2019-04-30 06:16] LABS: CALCIUM 9.2 mg/dL (8.4-10.2); CREATININE, serum 0.55 (0.52-1.25); POTASSIUM 3.2 mmol/L (3.4-5.0)
[2019-04-30 06:21] LABS: VALPROIC ACID (DEPAKENE) 30.3 ug/mL (50.0-100.0)
--- NOTE | 2019-04-30 08:52 | NUR ---
Introduced myself to pt. Assessed pt orientation, pt A&Ox3, but forgetful. Morning medications given, and left buttock pressure injury repacked with a wet to dry dressing. Pressure injury tunnelling toward midline, non-blanchable edges. Pressure injury noted on left elbow and on heels will continue to monitor. Placed call light and personal items within reach.
[2019-04-30 11:17] LABS: COLLECTION METHOD CLEAN CATCH
--- NOTE | 2019-04-30 14:14 | NUR ---
ELZA met with the patient and patient's , Amos (ph#[phone]), to discuss discharge plan. The patient lives in [place] with her . She reports needing assistance with ADLs and has a walker. She states that it has been getting harder for her to get around with just the walker. She states that her and a cousin helps her with bathing and using the restroom. The patient also has home health services 3x's a week from [facility]. ELZA contacted and will fax updates to [facility]. The patient's PCP is Dr. Dominic Navas and she receives her medications at [facility]. She reports no difficulties obtaining her meds. The patient does not have advanced directives in EMR, but she states that she believes she has them completed and that they are at home and Dr. Navas's office. She states she designated her . ELZA attempted to contact Dr. Navas's office and left a voicemail. ELZA then addressed her PCP's concerns of being at home and her getting around. ELZA discussed post-acute rehab. The patient reports that she would be agreeable to post-acute rehab. ELZA presented and explained the patient choice form to the patient and her . The patient preferred 1) [facility] 2) [facility]. Patient choice form signed by the patient and she was provided a copy. ELZA contacted and faxed a referral to both facilities. SW awaiting their screens. ELZA also addressed assistive living with the patient and her . The patient and her report that she just recently started looking into assistive living and the prices at the different facilities. Alejandrina at [facility] came and spoke to the patient and her about their assistive living. The patient and her report that they are not quite ready to make a decision on assistive living yet. SW to continue to follow to ensure a safe discharge.
--- NOTE | 2019-04-30 19:10 | NUR ---
REPORT GIVEN TO KARMEN OJEDA EATING DINNER. CALL LIGHT, PHONE AND PERSONAL ITEMS WITHIN REACH. PT APPROPRIATE AND CONTENT. NO OTHER CONCERNS
--- NOTE | 2019-04-30 21:30 | NUR ---
Alert and oriented with confusion. Denies pain and discomfort. NS running at 75 ml/hr to peripheral IV to left forearm. Site is without redness, warmth, swelling, and pain. LS CTA. Respirations even and unlabored. HRR. BSAx4. No edema. External female catheter in place with clear yellow urine. Dressing to left elbow CDI. Dressing to left hip/buttock CDI. Brown discoloration to BLE. Callous to right heel and left lateral foot. Encouraged repositioning off of left side, but turns to left side for comfort after staff reposition to right side. Coccyx red, non-blanchable. Resting in bed with call light within reach.
[2019-05-01 00:10] VITALS: BP 111/56
--- NOTE | 2019-05-01 00:23 | NUR ---
BP was 174/51. Given PRN Appresoline per order at 2336. BP is currently 111/56.
[2019-05-01 03:45] VITALS: BP 124/62; PULSE 72
--- NOTE | 2019-05-01 04:41 | NUR ---
Patient denying pain and discomfort. Voices no questions, needs, or concerns at this time. Continues to have external female catheter. Changed twice this shift. NS continues at 75 ml/hr to left forearm per ordes. Staff assists with repositioning to right side in bed, and patient turns back onto left side. Resting in bed with call light within reach.
[2019-05-01 06:06] LABS: BASO % 0.8 % (0.0-2.0); EOS # 0.1 (0.0-0.7); EOS % 1.8 % (0-4.0); GRAN # 3.1 (1.4-6.5); GRAN % 59.6 % (42.2-75.2); HEMATOCRIT 37.8 % (37.0-47.0); HEMOGLOBIN 12.1 g/dl (12.5-16.0); LYMPH # 1.4 (1.2-3.4); LYMPH % 26.5 % (20.0-51.0); MEAN CELL VOLUME 87 fl (80.0-100.0); MEAN CORPUSCULAR HEMOGLOBIN 28 pg (27.0-31.0); MEAN CORPUSCULAR HGB CONC 32 g/dl (33.0-37.0); MEAN PLATELET VOLUME 10.8 fl (7.4-10.4); MONO # 0.5 (0.1-0.6); MONO % 10.3 % (1.7-9.3); PLATELET COUNT 226 K/mm3 (130-400); RED BLOOD COUNT 4.33 M/mm3 (4.10-5.30); REDCELL DISTRIBUTION WIDTH-CV 15.2 % (11.5-14.5)
[2019-05-01 06:19] LABS: CREATININE, serum 0.56 (0.52-1.25); POTASSIUM 3.8 mmol/L (3.4-5.0)
[2019-05-01 07:42] VITALS: BP 148/72; PULSE 74; TEMP 98
--- NOTE | 2019-05-01 10:59 | NUR ---
Alejandrina, at [facility], reports that the referral looks good, but that they will want to see the note for the wound care consult. Alejandrina reports that the patient's secondary insurance does not cover co-insurance after the day. ELZA to inform the patient. ELZA also contacted and faxed updates to Alejandrina from today. ELZA to continue to follow.
[2019-05-01 11:53] VITALS: BP 118/60; PULSE 85; TEMP 98.5
[2019-05-01 16:12] VITALS: BP 115/49; PULSE 80; TEMP 97.5
--- NOTE | 2019-05-01 19:00 | NUR ---
REPORT RECEIVED FROM DENNYS TIAN; CARE OF PT ASSUMED AT THIS TIME. BEDSIDE ROUNDS COMPLETED, PT DENIES NEEDS.
--- NOTE | 2019-05-01 19:17 | NUR ---
Initial; pt laying in bed, assessement complete. Pt has no current complaint of pain. All vitals WNL. Pt call light and personal belongings within reach.
--- NOTE | 2019-05-01 20:05 | NUR ---
PT AWAKE, ALERT, OX3, ALTHOUGH PT CONVERSATION IS OCC DISORIENTED. PT REPORTS HAVING SOME PAIN TO HER ABDOMEN AND BACK, STATES THIS IS CHRONIC PAIN. PT HAS AN INTERNAL PAIN PUMP TO RLQ. LS ARE SLIGHTLY DIMINISHED TO BILAT LOWER LOBES, NO COUGH NOTED. APICAL MURMUR NOTED WITH AUSCULTATION. SKIN TO BLE'S DARK IN COLOR AND COOL TO TOUCH WITH THICKENED SKIN. PT HAS DRESSING TO BUTTOCKS AT THIS TIME D/T TO REPORTED ULCER, HAVE NOT OBSERVED THIS AREA YET THIS SHIFT. PT DENIES PAIN TO HER BUTTOCKS. CALL LIGHT WITHIN REACH.
[2019-05-01 20:16] VITALS: BP 156/77; PULSE 90; TEMP 97.4
[2019-05-02 00:06] VITALS: BP 123/70; PULSE 83; TEMP 98.4
[2019-05-02 04:14] VITALS: BP 138/78; PULSE 76; TEMP 97.8
--- NOTE | 2019-05-02 06:00 | NUR ---
BS 66 AT THIS TIME, PT IS ASYMPTOMATIC. ORANGE JUICE PROVIDED TO PT.
[2019-05-02 06:18] LABS: BASO % 0.9 % (0.0-2.0); EOS # 0.2 (0.0-0.7); EOS % 3.8 % (0-4.0); GRAN # 2.4 (1.4-6.5); GRAN % 55.7 % (42.2-75.2); HEMOGLOBIN 10.9 g/dl (12.5-16.0); LYMPH # 1.1 (1.2-3.4); LYMPH % 26.2 % (20.0-51.0); MEAN CELL VOLUME 89 fl (80.0-100.0); MEAN CORPUSCULAR HEMOGLOBIN 28 pg (27.0-31.0); MEAN CORPUSCULAR HGB CONC 31 g/dl (33.0-37.0); MONO # 0.5 (0.1-0.6); MONO % 12.7 % (1.7-9.3); PLATELET COUNT 197 K/mm3 (130-400); REDCELL DISTRIBUTION WIDTH-CV 15.2 % (11.5-14.5)
[2019-05-02 06:20] LABS: CALCIUM 8.8 mg/dL (8.4-10.2); CREATININE, serum 0.64 (0.52-1.25)
[2019-05-02 06:28] LABS: HEMATOCRIT 34.7 % (37.0-47.0)
--- NOTE | 2019-05-02 06:42 | NUR ---
PT HAS HAD A GOOD NIGHT, HAS RESTED SOME, FREQUENT POSITION CHANGES. ENCOURAGED PT TO SHIFT TO R SIDE LYING TO RELIEVE PRESSURE OFF THE L BUTTOCKS D/T ULCER. DRESSING CDI. PT CONTINUES TO REPORT PAIN TO BACK AND TO ABDOMEN. GENERALIZED WEAKNESS NOTED. PT IS ALERT, OX3 WITH SOME INTERMITTENT CONFUSION. USES CALL LIGHT APPROPRIATELY.
[2019-05-02 08:00] VITALS: BP 152/74; PULSE 79; TEMP 97.9
--- NOTE | 2019-05-02 08:00 | NUR ---
PT ALERT AND ORIENTED X4. PT HAS SEVERE KYPHOSIS WITH CHRONIC BACK PAIN. PT HAS STAGE III PRESSURE ULCER TO LEFT HIP/BUTTOCKS WITH WET-TO-DRY DRESSING IN PLACE. ULCER IS APPROXIMATELY GOLF BALL SIZE. PT HAS REDNESS NOTED TO LEFT ELBOW THAT IS BLANCHABLE.
--- NOTE | 2019-05-02 08:30 | NUR ---
PT'S IV TO LEFT FOREARM EDEMATOUS AND LEAKING. IV DISCONTINUED. 22G IV INSERTED TO RIGHT FOREARM.
[2019-05-02] MEDS ORDERED: CIPRO 500MG TA500 MG PO (10:55)
[2019-05-02] MEDS ORDERED: ZESTRIL 10MG10 MG PO (10:56)
[2019-05-02] MEDS ORDERED: NAPROSYN 2250 MG/TAB PO (10:56)
[2019-05-02] MEDS ORDERED: TYLENOL 500MG500 MG PO (10:57)
[2019-05-02] MEDS ORDERED: MELATONIN3 M1 PO (11:34)
--- NOTE | 2019-05-02 11:57 | NUR ---
DRESSING TO LEFT HIP/BUTTOCKS AREA CHANGED. PT HAD SOME GREEN/PURULENT DRAINAGE NOTED IN SMALL AMT. ULCER IS AROUND 5-7 CM DEEP AND APPROXIMATELY SIZE OF A GOLF BALL. AREA IS PACKED WITH STERILE WATER SOAKED GAUZE AND COVERED WITH ALLEVYN DRESSING. DRESSING TO LEFT ELBOW REMOVED. SITE IS FREE OF REDNESS.
--- NOTE | 2019-05-02 12:32 | NUR ---
IV TO RIGHT WRIST BEGAN LEAKING. IV DISCONTINUED.
[2019-05-02 12:36] VITALS: BP 143/81; PULSE 92
--- NOTE | 2019-05-02 13:10 | NUR ---
ELZA faxed updates and informed Alejandrina at [facility] of what the nurses are doing for the patient's wound. [facility] requested a wound care follow up appointment. A wound care appointment was scheduled. Alejandrina reports that they are able to accept the patient for a skilled stay. ELZA informed the patient and the patient's and they are both in agreeance for the patient to transfer there. ELZA updated Rosa Scales and attempted to update Zena, Network Security Engineer, at Dr. Navas's office. ELZA left a voicemail. SW to update Michael at [facility]. The patient is to discharge today, 05/02, to [facility] for a skilled stay. Transportation was scheduled for 1400, via [facility]. ELZA informed the patient, patient's nurse, and the patient's , via phone. They were all in agreeance to time. ELZA also presented and explained the IM form to the patient and patient's . The patient's verbalized understanding, signed, and he was provided a copy. No additional needs at this time.
--- NOTE | 2019-05-02 13:16 | NUR ---
REPORT CALLED TO [facility] TO [facility].
--- NOTE | 2019-05-02 13:45 | NUR ---
ASSISTED PATIENT IN GETTING DRESSED IN PREPARATION FOR [facility] TO PICK HER UP
--- NOTE | 2019-05-02 14:06 | NUR ---
TRANSPORTER ARRIVED TO TAKE PATIENT TO [facility]. ASSISTED PATIENT INTO WHEELCHAIR.
== END 2019-05-02 14:07 | DRG 593 ==
LOC: COL.ER 19:34 → MEDICAL 22:18
PROVIDERS: Nurse Practitioner; Nurse Practitioner Family; Physician Assistant; ADMIT Hospitalist
DX: L89.309 Pressure ulcer of unspecified buttock, unspecified stage (principal); N39.0 Urinary tract infection, site not specified; I10 Essential (primary) hypertension; E78.5 Hyperlipidemia, unspecified; I25.10 Atherosclerotic heart disease of native coronary artery without angina pectoris; G40.909 Epilepsy, unspecified, not intractable, without status epilepticus; E11.40 Type 2 diabetes mellitus with diabetic neuropathy, unspecified; M19.90 Unspecified osteoarthritis, unspecified site; E87.6 Hypokalemia; B96.89 Other specified bacterial agents as the cause of diseases classified elsewhere; M40.209 Unspecified kyphosis, site unspecified; E03.9 Hypothyroidism, unspecified; J45.909 Unspecified asthma, uncomplicated; F32.9 Major depressive disorder, single episode, unspecified; F41.9 Anxiety disorder, unspecified; R53.81 Other malaise; Z79.891 Long term (current) use of opiate analgesic; Z86.73 Personal history of transient ischemic attack (TIA), and cerebral infarction without residual deficits; Z98.1 Arthrodesis status; Z90.710 Acquired absence of both cervix and uterus
CPT/HCPCS: 99222-AI; 99232-AI; 99239; A4216; J0360; J0696; J0744; J1650; J2270; J7030

== ENCOUNTER → 2019-05-08 | Outpatient (CLI) | payer MEDICARE, OTHER ==
[~2019-05-08] MED LIST changes: +ADALAT CC30 MG PO; +CIPRO 500MG TA500 MG PO; +DEMADEX10 MG PO; +ESTRACE0.1 MG/GM VG; +GLUMETZA500 MG PO; +HAIRSKINNAILS PO; +KLOR-CON20 MEQ PO; +MORPHINE; +NAPROSYN 2250 MG/TAB PO; +SYNTHROID0.137 MG; +ZESTRIL 10MG10 MG PO
[2019-05-08 18:30] LABS: COLLECTION METHOD CLEAN CATCH
[2019-05-08 18:39] LABS: MUCOUS Present /lpf; PH 5 (5-8); SQUAMOUS EPITHELIAL 0-2 /hpf; URINE APPEARANCE Clear; URINE BACTERIA Rare /hpf; URINE BILIRUBIN Negative (NEGATIVE); URINE BLOOD Negative (NEGATIVE); URINE COLOR Yellow; URINE GLUCOSE Negative (NEGATIVE); URINE KETONE Negative (NEGATIVE); URINE LEUKOCYTE ESTERASE 1+ (NEGATIVE); URINE NITRATE Negative (NEGATIVE); URINE PROTEIN(semi-quant) Negative (NEGATIVE); URINE UROBILINOGEN Negative (NEGATIVE)
== END ==
LOC: ZCOL.LAB 08:00
PROVIDERS: Family Medicine
DX: N39.0 Urinary tract infection, site not specified (principal)

== ENCOUNTER → 2019-05-14 | Outpatient (CLI) | payer MEDICARE, OTHER ==
[~2019-05-14] MED LIST changes: -ADALAT CC30 MG PO; -DEMADEX10 MG PO; -GLUMETZA500 MG PO; -KLOR-CON20 MEQ PO; -SYNTHROID0.137 MG
[2019-05-14 19:55] LABS: COLLECTION METHOD CLEAN CATCH
[2019-05-14 20:34] LABS: HYALINE CAST >12 /lpf; MUCOUS Present /lpf; PH 6 (5-8); SQUAMOUS EPITHELIAL 0-2 /hpf; URINE APPEARANCE Clear; URINE BACTERIA Rare /hpf; URINE BILIRUBIN Negative (NEGATIVE); URINE BLOOD Negative (NEGATIVE); URINE COLOR Yellow; URINE GLUCOSE Negative (NEGATIVE); URINE KETONE Negative (NEGATIVE); URINE LEUKOCYTE ESTERASE Trace (NEGATIVE); URINE NITRATE Negative (NEGATIVE); URINE PROTEIN(semi-quant) Negative (NEGATIVE); URINE RBC 0-2 /hpf; URINE UROBILINOGEN Negative (NEGATIVE)
== END ==
LOC: ZCOL.LAB 18:10
PROVIDERS: Family Medicine
DX: R82.90 Unspecified abnormal findings in urine (principal); R39.15 Urgency of urination; R35.0 Frequency of micturition

== ENCOUNTER 2019-07-18 17:46 | Inpatient (IN) | payer MEDICARE, OTHER ==
[~2019-07-18] VITALS: Ht 167.6 cm; Wt 52.9 kg
[~2019-07-18 17:46] MED LIST changes: +ADALAT CC30 MG PO; +DEMADEX10 MG PO; +GLUMETZA500 MG PO; +KLOR-CON20 MEQ PO; +SYNTHROID0.137 MG
[2019-07-18 18:09] VITALS: BP 101/84; PULSE 76; TEMP 97.8
--- NOTE | 2019-07-18 18:47 | NUR ---
REPORT TO STORM NOYOLA.
[2019-07-18 19:08] VITALS: BP 120/65; PULSE 76; TEMP 97.8
[2019-07-18 19:08] LABS: BASO % 0.9 % (0.0-2.0); EOS # 0.1 (0.0-0.7); EOS % 2.2 % (0-4.0); GRAN # 2.5 (1.4-6.5); HEMATOCRIT 37.3 % (37.0-47.0); HEMOGLOBIN 11.5 g/dl (12.5-16.0); LYMPH # 1.4 (1.2-3.4); LYMPH % 30.3 % (20.0-51.0); MEAN CELL VOLUME 92 fl (80.0-100.0); MEAN CORPUSCULAR HEMOGLOBIN 29 pg (27.0-31.0); MEAN CORPUSCULAR HGB CONC 31 g/dl (33.0-37.0); MEAN PLATELET VOLUME 10.5 fl (7.4-10.4); MONO # 0.5 (0.1-0.6); MONO % 11.4 % (1.7-9.3); PLATELET COUNT 245 K/mm3 (130-400); RED BLOOD COUNT 4.04 M/mm3 (4.10-5.30); REDCELL DISTRIBUTION WIDTH-CV 16.6 % (11.5-14.5)
[2019-07-18 19:26] LABS: ALANINE AMINOTRANSFERASE 8 U/L (9-52); ALBUMIN 3.8 gm/dL (3.5-5.0); ALKALINE PHOSPHATASE 58 U/L (50-136); ANION GAP 3 mmol/L (7-16); AST,SGOT 31 U/L (15-37); BILIRUBIN,TOTAL 0.3 mg/dL (0.0-1.0); BLOOD UREA NITROGEN 19 mg/dL (7-17); CALCIUM 9.6 mg/dL (8.4-10.2); CARBON DIOXIDE 35 mmol/L (22-30); CHLORIDE 104 mmol/L (98-107); CREATININE, serum 0.54 (0.52-1.25); GLUCOSE 86 mg/dL (74-106); POTASSIUM 4.5 mmol/L (3.4-5.0); SODIUM 141 mmol/L (137-145)
[2019-07-18 19:28] LABS: C-REACTIVE PROTEIN < 0.5 mg/dL (0.0-0.9)
[2019-07-18 19:31] LABS: PRE ALBUMIN 21.8 mg/dL (17.6-36.0)
[2019-07-18 19:51] LABS: VALPROIC ACID (DEPAKENE) 40.4 ug/mL (50.0-100.0)
[2019-07-18 20:00] VITALS: BP 159/78; PULSE 84; TEMP 98.4
[2019-07-18 20:01] LABS: TSH w REFLEX 1.32 uIU/mL (0.465-4.680)
[2019-07-18 20:54] VITALS: BP 159/78; PULSE 84; TEMP 98.4
--- NOTE | 2019-07-18 20:56 | NUR ---
Lying in bed with eyes open. Rates 7/10 in back and right hip. Pain medication administered as prescribed. Stage 4 pressure ulcer on left GM with wound bed pink and moist. Patient denies further needs at this time.
--- NOTE | 2019-07-18 21:20 | NUR ---
Doppler used to locate pedal pulses. Pedal pulses located and marked with surgical marker. #20 gauge started in the right wrist times one stick by this nurse. Blood return received. Flushes without difficulty. Site reinforced with tegaderm and tape. Patient tolerates without difficulty.
[2019-07-18 23:51] VITALS: BP 125/63; PULSE 78; TEMP 98.6
[2019-07-19 00:21] LABS: COLLECTION METHOD CLEAN CATCH
[2019-07-19 00:50] LABS: MUCOUS Present /lpf; PH 5 (5-8); URINE APPEARANCE Hazy; URINE BACTERIA Rare /hpf; URINE BILIRUBIN Negative (NEGATIVE); URINE BLOOD Negative (NEGATIVE); URINE COLOR Yellow; URINE GLUCOSE Negative (NEGATIVE); URINE KETONE Trace (NEGATIVE); URINE LEUKOCYTE ESTERASE 3+ (NEGATIVE); URINE NITRATE Negative (NEGATIVE); URINE PROTEIN(semi-quant) Negative (NEGATIVE); URINE UROBILINOGEN Negative (NEGATIVE)
--- NOTE | 2019-07-19 02:11 | NUR ---
Complains of pain in back and right hip and requests pain medication. Administered pain medication as prescribed. Patient denies further needs at this time.
[2019-07-19 03:25] VITALS: BP 141/68; PULSE 75; TEMP 98.2
--- NOTE | 2019-07-19 04:43 | NUR ---
Lying in bed on left side with eyes closed. Respirations even and unlabored. No signs or symptoms of discomfort noted at this time.
--- NOTE | 2019-07-19 08:00 | NUR ---
Patient resting in bed at this time, patient is alert and oriented, answers questions appropriately. Patient c/o back pain and right hip pain, administered PRN pain medication as ordered. Patient repositioned per request and a padded dressing was applied to a sore elbow. Patient denies further needs at this time, call light within reach.
[2019-07-19 08:11] VITALS: BP 139/63; PULSE 72; TEMP 98.1
--- NOTE | 2019-07-19 10:56 | NUR ---
Visited, listened, and provided spiritual care.
[2019-07-19 12:25] VITALS: BP 127/70; PULSE 70; TEMP 98
--- NOTE | 2019-07-19 14:06 | NUR ---
Plan: Patient reports that she would like to go to [facility] but does not know if they have finalized her applications. Assess: Patient reports that she resides locally iwth her spouse Amos . Amos is also DPOA. Patient indicated that her PCP Dr. Dejesus initiated the process. Patient reports that he son Gutierrez helps in home sometimes but could not remember is number. Patient reports daniel she uses a walker and has a pain pump. Patient reports that she obtains her RX from [facility] pharmacy. Action: ELZA called [facility] for update on status and left message for Michael to call back from care coordination. Awaiting response.
[2019-07-19 16:13] VITALS: BP 125/62; PULSE 68; TEMP 97.9
--- NOTE | 2019-07-19 19:12 | NUR ---
Patient resting in bed at this time. Patient remains alert and oriented, answers questions appropriately. Dressing to left buttock changed, small amount of yellow drainage noted on dressing removed. Patient reported pain with procedure due to movement of right hip but denied further pain. No further needs at this time, call light within reach.
[2019-07-19 19:42] VITALS: BP 143/57; PULSE 75; TEMP 99.9
--- NOTE | 2019-07-19 19:46 | NUR ---
Sitting up in bed with eyes open. Explains that she is still trying to decide if she would like to do surgery tomorrow or not. Questions answered for patient. Patient expresses she is scared, reassurance provided. Complains of constant pain in low back and right hip. Denies any further needs at this time.
--- NOTE | 2019-07-19 19:57 | NUR ---
Rating pain 7/10 in right hip and low back. Administered pain medication as prescribed. Repositioned in the bed. Patient denies further needs.
--- NOTE | 2019-07-19 21:15 | NUR ---
Explained to the patient orders for cardenas cath and the procedure. 16 Fr cardenas catheter placed using sterile technique. Prior to procedure provided harmeet care. Inflated balloon with 10mL sterile saline. Catheter draining clear yellow urine. Securement device placed on left leg. Patient tolerates procedure with little difficulty.
[2019-07-20] VITALS (14 sets, daily range): BP systolic 94–179; BP diastolic 52–81; PULSE 70–94; TEMP 97.7–99.4
--- NOTE | 2019-07-20 01:53 | NUR ---
Rating pain in right hip and back 8/10. Administered pain medication as prescribed. Patient says that she feels like she may have urinated. Durham catheter patent draining clear yellow urine. Looked at pad under patient and there is urine on pad. Patient cleansed at this time. New pad applied. Explained to the patient that sometimes of there is a bladder spasm it can seep around the catheter. Explained that we would reevaluate. DENNYS Melgar, in room to assess as well. Catheter does meet resistance when pulled down, balloon still inflated. Patient agrees to plan. Denies further needs at this time.
--- NOTE | 2019-07-20 05:33 | NUR ---
Sitting up in bed. Denies complaints or concerns. Spouse will be coming in this morning to discuss surgical procedure further with the patient. Patient would like to write down any questions they come up with, will provide pen and paper to the patient, and then ask the doctor more questions before making a decision. Patient denies further needs at this time.
--- NOTE | 2019-07-20 08:00 | NUR ---
Patient resting in bed at this time. Patient is alert and oriented, answers questions appropriately. Durham catheter in place per order. Family at bedside. Patient denies needs at this time, call light within reach.
--- NOTE | 2019-07-20 19:21 | NUR ---
Patient to room via bed from PACU. Patient sitting up in bed leaning forward. Patient has eyes open but does not say anything when asked questions. When asked if she is having pain patient just goes "Mhm". Skin pale. Durham patent draining clear yellow urine. Aquacel to right hip CDI. Ice pack is to right hip. Family at bedside.
--- NOTE | 2019-07-20 23:31 | NUR ---
Continues to rate pain 8/10 in low back and right hip. Administered pain medication as prescribed. Patient says that she is having a hard time trying to go to sleep. Trazadone administered as well. Repositioned patient in the bed. Denies further needs at this time.
--- NOTE | 2019-07-21 00:05 | NUR ---
Lying in bed with eyes closed. Respirations even and unlabored. No signs or symptoms of discomfort noted at this time.
--- NOTE | 2019-07-21 01:51 | NUR ---
Rates pain in right hip and back 05/22. Administered Morphine as prescribed. Patinet repositioned. Ice is still on right hip. Denies further needs at this time.
[2019-07-21 03:09] VITALS: BP 94/46; PULSE 82; TEMP 99
--- NOTE | 2019-07-21 03:18 | NUR ---
Rating pain 10/10 in right hip and buttocks. Roxicodone administered as prescribed. Repositioned in the bed. Encouraged the patient to try to relax as when she tenses her body by sitting up it causes her muscles to tense up as well. Patient says that she will try. Explained to the patient as well that we have tried to reposition her off her buttocks several times and as soon as we reposition her she repositions herself back on her buttocks. Patient says that she understands. Denies further needs at this time.
--- NOTE | 2019-07-21 06:17 | NUR ---
Lying in bed with eyes closed. Continues to have upright position with head hunched over. Respiration even and unlabored. No signs or symptoms of discomfort noted at this time.
[2019-07-21 06:44] LABS: HEMATOCRIT 27.9 % (37.0-47.0)
[2019-07-21 07:13] VITALS: BP 100/54; PULSE 87; TEMP 98.5
[2019-07-21 11:42] VITALS: BP 104/90; PULSE 92; TEMP 98.8
[2019-07-21] MEDS ORDERED: NEURONTIN400 MG/CAP PO (13:30)
--- NOTE | 2019-07-21 15:48 | NUR ---
Michael, at [facility], reports that they have been working with the patient's APS worker, Bianca Cornell, to get placed. She states that they would be looking at SNF and then either long-term care or assisted living for the patient. ELZA met with the patiet to update. The patient is in agreeance with going to [facility]. ELZA faxed updates to [facility] and will continue to follow.
[2019-07-21 16:14] VITALS: BP 109/52; PULSE 87; TEMP 98.5
--- NOTE | 2019-07-21 18:11 | NUR ---
Patient resting in bed. Pain manged with PO percocet. Patient has not tolerated activity well today. She is very slow to move & does not tolerate sitting up for very long periods. She is a 2 to 3 assist. Patient given hip precautions teaching multiple times today & extensivly. She is not willing to listen or follow hip precaustions as reccomended. Patient has had minimal appetite. PO intake encouaraged. Durham to be DC per orders. Patient was up to commode & had BM, pericare provided. Pressure ulcer to L.buttock wet to dry dressing completed this am. Matt & scds per orders. Iv to INT. Will report off to night nurse
[2019-07-21 20:26] VITALS: BP 123/47; PULSE 85; TEMP 99.6
--- NOTE | 2019-07-21 21:24 | NUR ---
Assessment completed. A/o with VSS. PM meds given. Refused to let this nurse look at her ulcer on left side of bottom, stated it is too painful and she does not want to be moved. Reinfoced patient how important it is for me to assess this and change dressing if needed. Patient still refused to let this nurse look. Aquacell dressing to right hip is CD&I. No concerns at this time. Call light within reach, will continue to monitor.
--- NOTE | 2019-07-21 22:28 | NUR ---
pt catheter DC'd by RN. 7ml of fluid returned from balloon. patient tolerated well. no concerns at this time. will continue to monitor
[2019-07-21 23:26] VITALS: BP 110/58; PULSE 79; TEMP 98
[2019-07-22 03:37] VITALS: BP 111/51; PULSE 76; TEMP 97.9
--- NOTE | 2019-07-22 04:28 | NUR ---
Attempted to ask patient again if i can see her wound on her left buttocks and she refused. Reinforced her this could cause issues in the future if it is not treated correctly. Patient started to get fussy with this nurse and stated she was in too much pain and did not want to be touched. Offered to give pain medicine and i could look at ulcer after they have kicked in and she still refused.
--- NOTE | 2019-07-22 06:01 | NUR ---
Pt has not voided since cardenas was DC'd. Bladder scanned patient and she had 250ml.
[2019-07-22 07:38] VITALS: BP 83/41; PULSE 74; TEMP 99.4
--- NOTE | 2019-07-22 08:00 | NUR ---
PATIENT IS VERY DROWSY THIS MORNING BUT AROUSES TO NAME AND STIMULI. PATIENT IS A&OX4. SEE MORNING SHIFT ASSESSMENT. CALL LIGHT WITHIN REACH. PATIENT DENIES ANY OTHER NEEDS AT THIS TIME.
[2019-07-22 08:06] LABS: CALCIUM 8.2 mg/dL (8.4-10.2); CREATININE, serum 0.6 (0.52-1.25); POTASSIUM 3.3 mmol/L (3.4-5.0)
[2019-07-22 08:21] LABS: BASO % 0.3 % (0.0-2.0); EOS # 0.4 (0.0-0.7); EOS % 8.8 % (0-4.0); GRAN # 2.7 (1.4-6.5); GRAN % 67.1 % (42.2-75.2); LYMPH # 0.6 (1.2-3.4); MEAN CELL VOLUME 88 fl (80.0-100.0); MEAN CORPUSCULAR HGB CONC 33 g/dl (33.0-37.0); MEAN PLATELET VOLUME 11.1 fl (7.4-10.4); MONO # 0.3 (0.1-0.6); MONO % 8.3 % (1.7-9.3); PLATELET COUNT 167 K/mm3 (130-400); RED BLOOD COUNT 2.64 M/mm3 (4.10-5.30); REDCELL DISTRIBUTION WIDTH-CV 16.3 % (11.5-14.5)
[2019-07-22 08:25] LABS: HEMATOCRIT 23.2 % (37.0-47.0); HEMOGLOBIN 7.7 g/dl (12.5-16.0); MEAN CORPUSCULAR HEMOGLOBIN 29 pg (27.0-31.0)
--- NOTE | 2019-07-22 11:45 | NUR ---
Michael, at [facility], reports that they are able to accept the patient for a skilled stay. ELZA informed the patient and her of this. The patient and her are agreeable with going to [facility]. The patient is to discharge today, 07/22, to [facility] for a skilled stay. ELZA notified Zena at [facility] and attempted to notify the patient's APS Worker, Bianca Cornell. ELZA left her a voicemail. Transportation was arranged for 0, via [facility]. ELZA informed the patient, patient's , and RN. They were all in agreeance to the time. ELZA also presented and explained the IM form to the patient. The patient verbalized understanding, signed, and she was provided a copy. No additional needs at this time.
[2019-07-22 12:00] VITALS: BP 80/43; PULSE 68; TEMP 98.1
[2019-07-22] MEDS ORDERED: MELATONIN3 M1 PO (14:15)
[2019-07-22] MEDS ORDERED: TYLENOL 500MG500 MG PO (14:16)
[2019-07-22] MEDS ORDERED: DICLOZOR1 EACH TP (14:22)
[2019-07-22] MEDS ORDERED: PERCOCET 325 MG1 TA2 PO ×2 (14:25→14:41)
[2019-07-22] MEDS ORDERED: NITRO-DUR0.2 MG/PAT TD (14:25)
[2019-07-22] MEDS ORDERED: ASPI325T6 PO (14:50)
[2019-07-22 15:14] VITALS: BP 80/43; PULSE 68; TEMP 98.1
--- NOTE | 2019-07-22 16:10 | NUR ---
PATIENTS RIGHT WRIST INT DISCONTINUED PER PENDING DISCHARGE. TIP INTACT. PATIENT TOLERATED WELL. FAMILY PRESENT AT THE BEDSIDE. PATIENT DENIES ANY NEEDS AT THIS TIME.
--- NOTE | 2019-07-22 16:58 | NUR ---
PATIENT TAKEN BY SURGICAL STAFF VIA WHEELCHAIR TO PRIVATE TRANSPORT VEHICLE.
--- NOTE | 2019-07-22 18:13 | NUR ---
REPORT CALLED TO MATT HUI AT [facility]. PATIENT TRANSFERRED.
== END 2019-07-22 16:58 | DRG 470 ==
LOC: SURG 17:46
PROVIDERS: Nurse Practitioner Family; Physician Assistant; ADMIT Family Medicine
PROC: 0SRR0J9 Replacement of Right Hip Joint, Femoral Surface with Synthetic Substitute, Cemented, Open Approach (ICD-10-PCS; principal; 2019-07-18)
DX: M87.851 Other osteonecrosis, right femur (principal); E44.0 Moderate protein-calorie malnutrition; Z68.1 Body mass index [BMI] 19.9 or less, adult; M81.0 Age-related osteoporosis without current pathological fracture; I10 Essential (primary) hypertension; E78.5 Hyperlipidemia, unspecified; I25.10 Atherosclerotic heart disease of native coronary artery without angina pectoris; G40.909 Epilepsy, unspecified, not intractable, without status epilepticus; E11.40 Type 2 diabetes mellitus with diabetic neuropathy, unspecified; J45.909 Unspecified asthma, uncomplicated; F41.9 Anxiety disorder, unspecified; F32.9 Major depressive disorder, single episode, unspecified; M54.9 Dorsalgia, unspecified; E87.6 Hypokalemia; I95.9 Hypotension, unspecified; D64.9 Anemia, unspecified; Z96.612 Presence of left artificial shoulder joint; M16.11 Unilateral primary osteoarthritis, right hip; G89.29 Other chronic pain; L98.419 Non-pressure chronic ulcer of buttock with unspecified severity; E89.0 Postprocedural hypothyroidism; K21.9 Gastro-esophageal reflux disease without esophagitis; Z90.49 Acquired absence of other specified parts of digestive tract; Z79.84 Long term (current) use of oral hypoglycemic drugs; Z90.710 Acquired absence of both cervix and uterus; Z86.73 Personal history of transient ischemic attack (TIA), and cerebral infarction without residual deficits; Z90.722 Acquired absence of ovaries, bilateral; Z98.1 Arthrodesis status; Z85.828 Personal history of other malignant neoplasm of skin; Z92.21 Personal history of antineoplastic chemotherapy
CPT/HCPCS: 99222-AI; 99232-AI; 99239; A4216; A9284; C1713; C1776; J0171; J0360; J0690; J0696; J1200; J1650; J2270; J2550; J2704; J3010; J7030

== ENCOUNTER → 2019-07-29 | Outpatient (CLI) | payer MEDICARE, OTHER ==
[~2019-07-29] MED LIST changes: +ASPI325T6 PO; +DICLOZOR1 EACH TP; +NEURONTIN400 MG/CAP PO; +NITRO-DUR0.2 MG/PAT TD
== END ==
LOC: ZCOL.LAB 16:32
DX: R79.89 Other specified abnormal findings of blood chemistry (principal)

== ENCOUNTER → 2020-05-10 | Outpatient (CLI) | payer MEDICARE, OTHER | LOC: ZCOL.LAB 18:19 | DX: L89.104 Pressure ulcer of unspecified part of back, stage 4 (principal) ==

== ENCOUNTER → 2020-06-11 | Outpatient (CLI) | payer MEDICARE, OTHER | LOC: ZCOL.LAB 02:56 | DX: L89.104 Pressure ulcer of unspecified part of back, stage 4 (principal) ==

== ENCOUNTER 2020-08-15 14:42 | Emergency (ER) | payer MEDICARE, OTHER ==
[~2020-08-15] VITALS: Ht 167.6 cm; Wt 65.9 kg
[2020-08-15 17:23] LABS: BASO % 0.5 % (0.0-2.0); EOS # 0.1 (0.0-0.7); EOS % 0.9 % (0-4.0); GRAN % 77.6 % (42.2-75.2); HEMOGLOBIN 11.5 g/dl (12.5-16.0); LYMPH # 0.8 (1.2-3.4); LYMPH % 12.4 % (20.0-51.0); MEAN CELL VOLUME 89 fl (80.0-100.0); MEAN CORPUSCULAR HEMOGLOBIN 29 pg (27.0-31.0); MEAN CORPUSCULAR HGB CONC 33 g/dl (33.0-37.0); MEAN PLATELET VOLUME 10.3 fl (7.4-10.4); MONO # 0.5 (0.1-0.6); MONO % 8.1 % (1.7-9.3); PLATELET COUNT 197 K/mm3 (130-400); RED BLOOD COUNT 3.97 M/mm3 (4.10-5.30); REDCELL DISTRIBUTION WIDTH-CV 14.9 % (11.5-14.5)
[2020-08-15 17:29] LABS: HEMATOCRIT 35.3 % (37.0-47.0)
[2020-08-15 18:10] LABS: COLLECTION METHOD CATHETER
[2020-08-15 18:42] LABS: ALBUMIN 3.4 gm/dL (3.5-5.0); BILIRUBIN,TOTAL 0.2 mg/dL (0.0-1.0); CALCIUM 8.9 mg/dL (8.4-10.2); CREATININE, serum 0.97 (0.52-1.25); POTASSIUM 3.9 mmol/L (3.4-5.0); TOTAL PROTEIN 6.4 gm/dL (6.4-8.2)
[2020-08-15 18:44] LABS: PH 5 (5-8); SQUAMOUS EPITHELIAL None Seen /hpf; URINE APPEARANCE Clear; URINE BACTERIA None Seen /hpf; URINE BILIRUBIN Negative (NEGATIVE); URINE BLOOD 1+ (NEGATIVE); URINE COLOR Straw; URINE GLUCOSE Negative (NEGATIVE); URINE KETONE Negative (NEGATIVE); URINE LEUKOCYTE ESTERASE Negative (NEGATIVE); URINE NITRATE Negative (NEGATIVE); URINE PROTEIN(semi-quant) Negative (NEGATIVE); URINE UROBILINOGEN Negative (NEGATIVE)
[2020-08-15 19:21] LABS: PROTHROMBIN TIME 11.2 SECONDS (9.7-12.8)
[2020-08-15 19:24] LABS: PARTIAL THROMBOPLASTIN TIME 22.8 SECONDS (26.0-37.0)
[2020-08-15] MEDS ORDERED: LYRICA 75MG CAP75 MG PO (21:31)
[2020-08-15] MEDS ORDERED: SYNTHROID0.137 MG (21:31)
[2020-08-15] MEDS ORDERED: LIPITOR 40MG TA40 MG PO (21:32)
[2020-08-15] MEDS ORDERED: K-DUR20 MEQ PO (21:32)
[2020-08-15] MEDS ORDERED: DEMADEX10 MG PO (21:32)
[2020-08-15] MEDS ORDERED: DITROPAN XL 5MG5 M1 PO (21:33)
[2020-08-15] MEDS ORDERED: DEPAKOTE ER 50500 MG PO (21:33)
[2020-08-15] MEDS ORDERED: DESYREL 100MG100 MG PO (21:33)
[2020-08-16 09:19] VITALS: BP 120/56; PULSE 71; TEMP 98.8
== END 2020-08-16 09:19 | disposition short-term general hospital (02) ==
LOC: COL.ER 14:42
PROVIDERS: Emergency Medicine; Nurse Practitioner
DX: S42.302A Unspecified fracture of shaft of humerus, left arm, initial encounter for closed fracture (principal); L89.329 Pressure ulcer of left buttock, unspecified stage; S81.012A Laceration without foreign body, left knee, initial encounter; R56.9 Unspecified convulsions; Z20.822 Contact with and (suspected) exposure to COVID-19; Z85.828 Personal history of other malignant neoplasm of skin; Z87.891 Personal history of nicotine dependence; Z90.89 Acquired absence of other organs; Z88.8 Allergy status to other drugs, medicaments and biological substances; Z79.82 Long term (current) use of aspirin; Z79.84 Long term (current) use of oral hypoglycemic drugs; W01.190A Fall on same level from slipping, tripping and stumbling with subsequent striking against furniture, initial encounter; Y92.009 Unspecified place in unspecified non-institutional (private) residence as the place of occurrence of the external cause
CPT/HCPCS: 99223; J1170; J1885; J3010; J7030; J7042

== ENCOUNTER → 2020-09-01 | Outpatient (CLI) | payer MEDICARE, OTHER ==
[~2020-09-01] MED LIST changes: +DITROPAN XL 5MG5 M1 PO; +K-DUR20 MEQ PO; +LYRICA 75MG CAP75 MG PO; +NYAMYC100000 U/G TP; +ONE-A-DAY ESSE1 EACH PO; +ZANAFLEX CAPSULE2 MG PO
== END ==
LOC: ZCOL.LAB 12:41
DX: N39.0 Urinary tract infection, site not specified (principal)

== ENCOUNTER → 2020-09-07 | Outpatient (REF) ==
[~2020-09-07] MED LIST changes: +CEPHALEXIN500 M1 PO
[2020-09-07 00:30] LABS: COLLECTION METHOD CATHETER
[2020-09-07 00:40] LABS: PH 5 (5-8); SQUAMOUS EPITHELIAL None Seen /hpf; URINE APPEARANCE Clear; URINE BACTERIA None Seen /hpf; URINE BILIRUBIN Negative (NEGATIVE); URINE BLOOD Negative (NEGATIVE); URINE COLOR Yellow; URINE GLUCOSE Negative (NEGATIVE); URINE KETONE Negative (NEGATIVE); URINE LEUKOCYTE ESTERASE Negative (NEGATIVE); URINE NITRATE Negative (NEGATIVE); URINE PROTEIN(semi-quant) Negative (NEGATIVE); URINE RBC 0-2 /hpf; URINE UROBILINOGEN Negative (NEGATIVE)
== END ==
LOC: ZCOL.LAB 00:27
PROVIDERS: Family Medicine
DX: N32.81 Overactive bladder (principal)

== ENCOUNTER 2020-09-08 15:35 | Emergency (ER) | payer MEDICARE, OTHER ==
[~2020-09-08] VITALS: Ht 167.6 cm; Wt 79.5 kg
[~2020-09-08 15:35] MED LIST changes: -CEPHALEXIN500 M1 PO; -NYAMYC100000 U/G TP; -ONE-A-DAY ESSE1 EACH PO; -ZANAFLEX CAPSULE2 MG PO
[2020-09-08] MEDS ORDERED: NYAMYC100000 U/G TP (16:33)
[2020-09-08] MEDS ORDERED: ONE-A-DAY ESSE1 EACH PO (16:34)
[2020-09-08] MEDS ORDERED: TYLENOL 325MG325 MG PO (16:34)
[2020-09-08] MEDS ORDERED: VITAMIN C500 MG PO (16:35)
[2020-09-08] MEDS ORDERED: ZANAFLEX CAPSULE2 MG PO (16:36)
[2020-09-08 17:05] LABS: ALBUMIN 3.3 gm/dL (3.5-5.0); BILIRUBIN,TOTAL 0.5 mg/dL (0.0-1.0); C-REACTIVE PROTEIN 6.2 mg/dL (0.0-0.9); CALCIUM 9.1 mg/dL (8.4-10.2); CREATININE, serum 0.61 (0.52-1.25); POTASSIUM 4.4 mmol/L (3.4-5.0); TOTAL PROTEIN 6.5 gm/dL (6.4-8.2)
[2020-09-08 17:14] LABS: TROPONIN-I 0.02 ng/mL (0.000-0.035)
[2020-09-08 17:54] LABS: BASO % 0.3 % (0.0-2.0); EOS # 0.2 (0.0-0.7); GRAN # 5.4 (1.4-6.5); GRAN % 70.8 % (42.2-75.2); HEMOGLOBIN 11.3 g/dl (12.5-16.0); LYMPH # 1.1 (1.2-3.4); LYMPH % 14.1 % (20.0-51.0); MEAN CELL VOLUME 92 fl (80.0-100.0); MEAN CORPUSCULAR HEMOGLOBIN 29 pg (27.0-31.0); MEAN CORPUSCULAR HGB CONC 31 g/dl (33.0-37.0); MEAN PLATELET VOLUME 10.7 fl (7.4-10.4); MONO # 0.8 (0.1-0.6); MONO % 10.9 % (1.7-9.3); PLATELET COUNT 225 K/mm3 (130-400); RED BLOOD COUNT 3.97 M/mm3 (4.10-5.30); REDCELL DISTRIBUTION WIDTH-CV 13.8 % (11.5-14.5)
[2020-09-08 17:55] LABS: HEMATOCRIT 36.7 % (37.0-47.0)
[2020-09-08 19:45] VITALS: BP 107/76; PULSE 89; TEMP 98
== END 2020-09-08 19:50 | disposition home or self-care (01) ==
LOC: COL.ER 15:35
PROVIDERS: Family Medicine; Nurse Practitioner
DX: R41.0 Disorientation, unspecified (principal); L89.329 Pressure ulcer of left buttock, unspecified stage; Z85.828 Personal history of other malignant neoplasm of skin; Z90.710 Acquired absence of both cervix and uterus; Z90.89 Acquired absence of other organs; Z88.8 Allergy status to other drugs, medicaments and biological substances; Z91.048 Other nonmedicinal substance allergy status; Z79.890 Hormone replacement therapy

== ENCOUNTER → 2020-09-08 | Outpatient (CLI) | payer MEDICARE, OTHER ==
[2020-09-08 10:43] LABS: ALBUMIN 2.6 gm/dL (3.5-5.0); BILIRUBIN,TOTAL 0.3 mg/dL (0.0-1.0); CALCIUM 8.8 mg/dL (8.4-10.2); CREATININE, serum 0.59 (0.52-1.25); POTASSIUM 4.1 mmol/L (3.4-5.0); TOTAL PROTEIN 5.1 gm/dL (6.4-8.2)
[2020-09-08 10:47] LABS: BASO % 0.4 % (0.0-2.0); EOS # 0.3 (0.0-0.7); EOS % 4.4 % (0-4.0); GRAN # 5.1 (1.4-6.5); LYMPH # 0.9 (1.2-3.4); LYMPH % 12.3 % (20.0-51.0); MEAN CELL VOLUME 92 fl (80.0-100.0); MEAN CORPUSCULAR HGB CONC 31 g/dl (33.0-37.0); MEAN PLATELET VOLUME 11.4 fl (7.4-10.4); MONO # 0.7 (0.1-0.6); MONO % 10.2 % (1.7-9.3); PLATELET COUNT 219 K/mm3 (130-400); RED BLOOD COUNT 3.37 M/mm3 (4.10-5.30); REDCELL DISTRIBUTION WIDTH-CV 14.1 % (11.5-14.5)
[2020-09-08 10:54] LABS: HEMATOCRIT 31.1 % (37.0-47.0); HEMOGLOBIN 9.5 g/dl (12.5-16.0); MEAN CORPUSCULAR HEMOGLOBIN 28 pg (27.0-31.0)
== END ==
LOC: ZCOL.LAB 10:11
PROVIDERS: Family Medicine
DX: R41.82 Altered mental status, unspecified (principal)

== ENCOUNTER 2020-09-10 19:49 | Emergency (ER) | payer MEDICARE, OTHER ==
[~2020-09-10 19:49] MED LIST changes: +NYAMYC100000 U/G TP; +ONE-A-DAY ESSE1 EACH PO; +ZANAFLEX CAPSULE2 MG PO
[2020-09-10 20:12] VITALS: TEMP 99.1
[2020-09-10 20:39] LABS: COLLECTION METHOD CATHETER
[2020-09-10 20:49] LABS: HYALINE CAST >12 /lpf; MUCOUS Present /lpf; PH 5 (5-8); SQUAMOUS EPITHELIAL 0-2 /hpf; URINE APPEARANCE Cloudy; URINE BACTERIA Rare /hpf; URINE BILIRUBIN Negative (NEGATIVE); URINE BLOOD Negative (NEGATIVE); URINE COLOR Amber; URINE GLUCOSE Negative (NEGATIVE); URINE KETONE Trace (NEGATIVE); URINE LEUKOCYTE ESTERASE 2+ (NEGATIVE); URINE NITRATE Negative (NEGATIVE); URINE PROTEIN(semi-quant) Negative (NEGATIVE); URINE UROBILINOGEN Negative (NEGATIVE); URINE WBC 20-50 /hpf
[2020-09-10 21:03] LABS: BASO % 0.5 % (0.0-2.0); EOS # 0.6 (0.0-0.7); EOS % 7.8 % (0-4.0); LYMPH # 0.9 (1.2-3.4); LYMPH % 12.1 % (20.0-51.0); MEAN CORPUSCULAR HGB CONC 29 g/dl (33.0-37.0); MONO # 0.9 (0.1-0.6); MONO % 11.7 % (1.7-9.3); PLATELET COUNT 218 K/mm3 (130-400); RED BLOOD COUNT 3.47 M/mm3 (4.10-5.30); REDCELL DISTRIBUTION WIDTH-CV 14.3 % (11.5-14.5)
[2020-09-10 21:04] LABS: HEMATOCRIT 33.6 % (37.0-47.0); HEMOGLOBIN 9.8 g/dl (12.5-16.0); MEAN CELL VOLUME 97 fl (80.0-100.0); MEAN CORPUSCULAR HEMOGLOBIN 28 pg (27.0-31.0)
[2020-09-10 21:08] LABS: ALBUMIN 3.2 gm/dL (3.5-5.0); BILIRUBIN,TOTAL 0.5 mg/dL (0.0-1.0); CALCIUM 8.8 mg/dL (8.4-10.2); CREATININE, serum 0.77 (0.52-1.25); POTASSIUM 4.8 mmol/L (3.4-5.0); TOTAL PROTEIN 6.2 gm/dL (6.4-8.2)
[2020-09-10] MEDS ORDERED: CEPHALEXIN500 M1 PO (22:03)
[2020-09-10 22:53] VITALS: BP 128/70; PULSE 78
== END 2020-09-10 22:53 | disposition home or self-care (01) ==
LOC: COL.ER 19:49
PROVIDERS: Emergency Medicine
DX: N30.90 Cystitis, unspecified without hematuria (principal); Z88.8 Allergy status to other drugs, medicaments and biological substances
CPT/HCPCS: J0696; J7030

== ENCOUNTER 2020-09-22 09:39 | Emergency (ER) | payer MEDICARE, OTHER ==
[~2020-09-22] VITALS: Ht 167.6 cm; Wt 59.1 kg
[~2020-09-22 09:39] MED LIST changes: +CEPHALEXIN500 M1 PO
[2020-09-22 09:48] VITALS: TEMP 97.6
[2020-09-22 11:05] LABS: PH 9 (5-8); SQUAMOUS EPITHELIAL 0-2 /hpf; URINE APPEARANCE Turbid; URINE BACTERIA Many /hpf; URINE BILIRUBIN Negative (NEGATIVE); URINE BLOOD Negative (NEGATIVE); URINE COLOR Amber; URINE GLUCOSE Negative (NEGATIVE); URINE KETONE Negative (NEGATIVE); URINE LEUKOCYTE ESTERASE 3+ (NEGATIVE); URINE NITRATE Positive (NEGATIVE); URINE PROTEIN(semi-quant) 2+ (NEGATIVE); URINE RBC 20-50 /hpf; URINE UROBILINOGEN Negative (NEGATIVE)
[2020-09-22] MEDS ORDERED: OMNICEF 300MG300 MG PO (11:15)
[2020-09-22 12:07] VITALS: BP 150/112; PULSE 81
[2020-09-22 12:48] LABS: COLLECTION METHOD CLEAN CATCH
== END 2020-09-22 12:07 ==
LOC: COL.ER 09:39
PROVIDERS: Emergency Medicine
DX: G89.29 Other chronic pain (principal); M54.5 Low back pain

== ENCOUNTER → 2020-10-03 | Outpatient (CLI) | payer MEDICARE, OTHER ==
[~2020-10-03] MED LIST changes: +OMNICEF 300MG300 MG PO
[2020-10-03 02:27] LABS: COLLECTION METHOD CLEAN CATCH
[2020-10-03 02:39] LABS: PH 5 (5-8); SQUAMOUS EPITHELIAL 0-2 /hpf; URINE APPEARANCE Hazy; URINE BACTERIA Rare /hpf; URINE BILIRUBIN Negative (NEGATIVE); URINE BLOOD Negative (NEGATIVE); URINE COLOR Yellow; URINE GLUCOSE Negative (NEGATIVE); URINE KETONE Negative (NEGATIVE); URINE LEUKOCYTE ESTERASE 1+ (NEGATIVE); URINE NITRATE Negative (NEGATIVE); URINE PROTEIN(semi-quant) Negative (NEGATIVE); URINE UROBILINOGEN Negative (NEGATIVE)
== END ==
LOC: ZCOL.LAB 02:25
PROVIDERS: Family Medicine
DX: N32.81 Overactive bladder (principal)

== ENCOUNTER 2020-12-29 08:39 | Day surgery (SDC) | payer MEDICARE, OTHER ==
[~2020-12-29] VITALS: Ht 157.5 cm; Wt 61.7 kg
[2020-12-29 09:31] VITALS: BP 175/83; PULSE 74; TEMP 98.3
[2020-12-29] MEDS ORDERED: CYMBALTA 60MG60 MG PO (10:45)
[2020-12-29] MEDS ORDERED: LYRICA 75MG CAP75 MG PO (10:47)
[2020-12-29] MEDS ORDERED: ZANAFLEX CAPSULE2 MG PO (10:54)
[2020-12-29] MEDS ORDERED: K-DUR20 MEQ PO (10:56)
[2020-12-29] MEDS ORDERED: DEPAKOTE ER 50500 MG PO (11:05)
[2020-12-29] MEDS ORDERED: NITRO-DUR0.4 MG/PAT TD (11:09)
[2020-12-29 11:10] VITALS: BP 155/71; PULSE 81; TEMP 98.8
--- NOTE | 2020-12-29 11:10 | NUR ---
Pt to GI bay 2 via cart from ENDO. Pt drowsy but awake. Pt ambulates to recliner with stand by assistance. Warm blankets given. [place] juice provided per pt request. Will continue to monitor. Call light within reach.
[2020-12-29] MEDS ORDERED: GLUCOPHAGE500 MG/TAB PO (11:11)
[2020-12-29 11:25] VITALS: BP 161/78; PULSE 76
--- NOTE | 2020-12-29 11:25 | NUR ---
Pt continues to rest. Denies needs. Tolerating PO without difficulties. at side. Call light within reach.
--- NOTE | 2020-12-29 11:40 | NUR ---
Pt up to restroom with wheel chair and nurse assist. IV site discontinued with all parts intact. Pt back to room when doned.
--- NOTE | 2020-12-29 12:05 | NUR ---
Discharge instructions reviewed. Pt voices understanding.
--- NOTE | 2020-12-29 12:15 | NUR ---
Pt escorted to private car via wheel chair. Pt accompanied home by her .
== END 2020-12-29 12:15 | disposition home or self-care (01) ==
LOC: SDCO 08:39
DX: K22.4 Dyskinesia of esophagus (principal); K31.89 Other diseases of stomach and duodenum; K29.70 Gastritis, unspecified, without bleeding; K21.9 Gastro-esophageal reflux disease without esophagitis; K44.9 Diaphragmatic hernia without obstruction or gangrene; I25.10 Atherosclerotic heart disease of native coronary artery without angina pectoris; J44.9 Chronic obstructive pulmonary disease, unspecified; E03.9 Hypothyroidism, unspecified; M19.90 Unspecified osteoarthritis, unspecified site; G89.29 Other chronic pain; G40.909 Epilepsy, unspecified, not intractable, without status epilepticus; I10 Essential (primary) hypertension; E11.40 Type 2 diabetes mellitus with diabetic neuropathy, unspecified; M48.00 Spinal stenosis, site unspecified; I08.0 Rheumatic disorders of both mitral and aortic valves; M54.9 Dorsalgia, unspecified; D64.9 Anemia, unspecified; E78.5 Hyperlipidemia, unspecified; F32.9 Major depressive disorder, single episode, unspecified; F41.9 Anxiety disorder, unspecified; Z79.899 Other long term (current) drug therapy; Z79.890 Hormone replacement therapy; Z79.891 Long term (current) use of opiate analgesic; Z86.73 Personal history of transient ischemic attack (TIA), and cerebral infarction without residual deficits; Z85.828 Personal history of other malignant neoplasm of skin
CPT/HCPCS: J2704; J7030

== ENCOUNTER 2021-03-13 16:49 | Emergency (ER) | payer MEDICARE, OTHER ==
[~2021-03-13] VITALS: Ht 162.6 cm; Wt 60.0 kg
[~2021-03-13 16:49] MED LIST changes: +GLUCOPHAGE500 MG/TAB PO
[2021-03-13 16:59] VITALS: TEMP 98.4
[2021-03-13] MEDS ORDERED: AMOXICILLIN 8751 TAB PO (17:46)
[2021-03-13 18:11] VITALS: BP 146/94; PULSE 85
== END 2021-03-13 18:14 | disposition home or self-care (01) ==
LOC: COL.ER 16:49
DX: S61.252A Open bite of right middle finger without damage to nail, initial encounter (principal); I10 Essential (primary) hypertension; E78.5 Hyperlipidemia, unspecified; I25.10 Atherosclerotic heart disease of native coronary artery without angina pectoris; E11.40 Type 2 diabetes mellitus with diabetic neuropathy, unspecified; E03.9 Hypothyroidism, unspecified; G89.29 Other chronic pain; M54.9 Dorsalgia, unspecified; F32.9 Major depressive disorder, single episode, unspecified; F41.9 Anxiety disorder, unspecified; J45.909 Unspecified asthma, uncomplicated; Z20.3 Contact with and (suspected) exposure to rabies; Z79.890 Hormone replacement therapy; Z79.899 Other long term (current) drug therapy; Z79.84 Long term (current) use of oral hypoglycemic drugs; W55.51XA Bitten by raccoon, initial encounter

== ENCOUNTER 2021-03-21 04:47 | Observation (INO) | payer MEDICARE, OTHER ==
[~2021-03-21] VITALS: Ht 160 cm; Wt 60.9 kg
[~2021-03-21 04:47] MED LIST changes: +AMOXICILLIN 8751 TAB PO
[2021-03-21 05:19] LABS: BASO % 0.6 % (0.0-2.0); EOS # 0.4 (0.0-0.7); EOS % 8.2 % (0-4.0); GRAN # 2.7 (1.4-6.5); GRAN % 57.1 % (42.2-75.2); HEMATOCRIT 39.3 % (37.0-47.0); HEMOGLOBIN 12.1 g/dl (12.5-16.0); LYMPH % 21.4 % (20.0-51.0); MEAN CELL VOLUME 83 fl (80.0-100.0); MEAN CORPUSCULAR HEMOGLOBIN 25 pg (27.0-31.0); MEAN CORPUSCULAR HGB CONC 31 g/dl (33.0-37.0); MEAN PLATELET VOLUME 10.7 fl (7.4-10.4); MONO # 0.6 (0.1-0.6); MONO % 12.5 % (1.7-9.3); PLATELET COUNT 183 K/mm3 (130-400); RED BLOOD COUNT 4.76 M/mm3 (4.10-5.30); REDCELL DISTRIBUTION WIDTH-CV 16.6 % (11.5-14.5)
[2021-03-21 05:49] LABS: ALBUMIN 3.8 gm/dL (3.5-5.0); BILIRUBIN,TOTAL 0.3 mg/dL (0.0-1.0); CALCIUM 9.7 mg/dL (8.4-10.2); CREATININE, serum 0.72 (0.52-1.25); POTASSIUM 3.9 mmol/L (3.4-5.0); TOTAL PROTEIN 7.3 gm/dL (6.4-8.2)
[2021-03-21] MEDS ORDERED: DEMADEX10 MG PO (07:39)
--- NOTE | 2021-03-21 10:00 | NUR ---
RAMA RN IN ER CALLED REPORT TO SURGICAL FLOOR. PATIENT WAS REPORTED TO HAVE A B/P IN THE 190'S SYSTOLIC AND HAS NOT BEEN TREATED IN ER FOR HYPERTENSION AND WAS NOT GIVEN HOME MEDICATIONS THE MED REC HAS NOT BEEN COMPLETED. RAMA STATED SHE IS "TO BUSY AND HAS NOT HAD TIME TO CALL AND GET A MEDICATION LIST". RAMA TOLD THE SURGICAL ORIENTEE ALICE SHE WILL HAVE TO DO IT. PATIENT HAS BEEN IN ER MUCH OF THE NIGHT AND ALL MORNING. SURGICAL NURSING STAFF SPOKE TO DRESS CUTTER, DENNYS ESTES AND CALLED BACK TO CLARIFY; A HOME MEDICATION LIST WOULD NEED TO BE OBTAINED AND THE B/P SHOULD BE TREATED BEFORE COMING TO THE FLOOR.
--- NOTE | 2021-03-21 10:20 | NUR ---
ER DIRECTOR CALLED NURSING REPORTING A MED REC FROM THE [facility] HAS NOW BEEN OBTAINED AND THE PATIENT WOULD NEED TO COME TO THE FLOOR. B/P STILL UNTREATED. SURGICAL STAFF TO COMPLETE RXM WHEN PATIENT ARRIVES TO FLOOR.
[2021-03-21 10:30] VITALS: BP 195/90; PULSE 75; TEMP 98
--- NOTE | 2021-03-21 10:30 | NUR ---
PATIENT ARRIVED TO FLOOR WITHOUT A MEDICATION LIST. PATIENT IS NOT FROM A HALFWAY AND PRESENTED TO THE ER WITH ABD PAIN FROM HOME. NOTED ELEVATED B/P OF 195/90. RECHECK B/P WAS 197/81. PATIENT DOESN'T WANT TO LAY BACK AND REQUESTS TO SIT AT BEDSIDE. HAT CHECKER CALLED BACK AND IS HAVING PATIENT'S PHARMACY FAX MED LIST. HOSPITALIST NOTIFIED
[2021-03-21 10:43] VITALS: BP 197/81; PULSE 74
[2021-03-21 11:40] VITALS: BP 165/86; PULSE 84; TEMP 98.8
--- NOTE | 2021-03-21 11:45 | NUR ---
CALLED GI CONSULT, NO ANSWER SO LEFT MESSAGE.
[2021-03-21] MEDS ORDERED: GLUCOPHAGE XR500 M1 PO (13:57)
[2021-03-21 14:24] LABS: COLLECTION METHOD CLEAN CATCH
[2021-03-21 14:37] LABS: PH 7 (5-8); SQUAMOUS EPITHELIAL 0-2 /hpf; URINE APPEARANCE Clear; URINE BACTERIA None Seen /hpf; URINE BILIRUBIN Negative (NEGATIVE); URINE BLOOD Negative (NEGATIVE); URINE COLOR Straw; URINE GLUCOSE Negative (NEGATIVE); URINE KETONE Negative (NEGATIVE); URINE LEUKOCYTE ESTERASE Negative (NEGATIVE); URINE NITRATE Negative (NEGATIVE); URINE PROTEIN(semi-quant) Negative (NEGATIVE); URINE RBC 0-2 /hpf; URINE UROBILINOGEN Negative (NEGATIVE)
--- NOTE | 2021-03-21 16:50 | NUR ---
AT BEDSIDE FOR CONSULT
[2021-03-21 17:35] VITALS: BP 179/71; PULSE 78; TEMP 98.4
--- NOTE | 2021-03-21 19:41 | NUR ---
PATIENT RESTING IN BED, AT BEDSIDE. ALERT AND ORIENTX4. APPEARED COMFORTABLE AT THIS TIME. NO SOB NOTED, DENIES CHEST PAIN. MILD LLQ PAIN, NO PAIN MED REQUIRES AT THIS TIME. BED LOW AND LOCKED, CALL LIGHT WITHIN REACH.
[2021-03-21 19:56] VITALS: BP 199/100; PULSE 87; TEMP 98.3
[2021-03-21 20:39] VITALS: BP 168/77; PULSE 104
[2021-03-22 00:25] VITALS: BP 166/79; PULSE 79; TEMP 98.7
[2021-03-22 04:09] VITALS: BP 150/71; PULSE 80; TEMP 98.1
[2021-03-22 06:07] LABS: BASO # 0.1 (0.0-0.2); BASO % 1.1 % (0.0-2.0); EOS # 0.4 (0.0-0.7); EOS % 7.7 % (0-4.0); GRAN # 2.2 (1.4-6.5); GRAN % 47.3 % (42.2-75.2); HEMATOCRIT 39.9 % (37.0-47.0); HEMOGLOBIN 12.2 g/dl (12.5-16.0); LYMPH # 1.4 (1.2-3.4); LYMPH % 31.5 % (20.0-51.0); MEAN CELL VOLUME 82 fl (80.0-100.0); MEAN CORPUSCULAR HEMOGLOBIN 25 pg (27.0-31.0); MEAN CORPUSCULAR HGB CONC 31 g/dl (33.0-37.0); MEAN PLATELET VOLUME 11.3 fl (7.4-10.4); MONO # 0.5 (0.1-0.6); MONO % 11.7 % (1.7-9.3); PLATELET COUNT 203 K/mm3 (130-400); RED BLOOD COUNT 4.85 M/mm3 (4.10-5.30); REDCELL DISTRIBUTION WIDTH-CV 16.7 % (11.5-14.5)
[2021-03-22 06:19] LABS: ALBUMIN 3.4 gm/dL (3.5-5.0); BILIRUBIN,TOTAL 0.4 mg/dL (0.0-1.0); CALCIUM 9.3 mg/dL (8.4-10.2); CREATININE, serum 0.62 (0.52-1.25); POTASSIUM 3.7 mmol/L (3.4-5.0); TOTAL PROTEIN 6.7 gm/dL (6.4-8.2)
[2021-03-22 08:14] VITALS: BP 174/71; PULSE 69; TEMP 99
--- NOTE | 2021-03-22 08:19 | NUR ---
idalia domingo notified of bp 174/71
--- NOTE | 2021-03-22 09:58 | NUR ---
warp worker notified by child support case officer Sarah that patient did not meet requirement's for inpatient stay and will be down graded to observation status. This geriatric social worker and child support case officer Sarah met with patient to educate her on the status change. warp worker provided and read [employer] form to patient. Patient verablized understanding and signed. Copy was made for patients chart and original handed to patient.
--- NOTE | 2021-03-22 10:06 | NUR ---
Initial visit; Patient thanked Senior Electronics Engineer for offering God's blessings.
--- NOTE | 2021-03-22 11:14 | NUR ---
hotel maintenance worker met with patient and physician to discuss discharge planning. Patient will discharge home today, where she resides with her spouse. Patient states she has home health currently and worker confirmed with Dr Dejesus's office that the agency is [facility]. Worker contacted [facility] and advised of discharge today and faxed clinical information. Awaiting orders to fax at this time. Patient's primary care provider is Dr Dejesus and worker spoke with Samantha, employment case manager, at that office to advise of the above information. Patient states her spouse will transport her home today. Patient uses [employer]
--- NOTE | 2021-03-22 11:56 | NUR ---
Patient alert and oriented, answers questions appropriately. See assessment. Abdomen soft, non tender, non distended. Bowel sounds active x4 quads. +Flatus. Imbedded pain pump noted to RLQ. FWB. Stand by assist to toilet. No c/o at this time.
--- NOTE | 2021-03-22 13:55 | NUR ---
director workers compensation faxed home health orders to [facility].
--- NOTE | 2021-03-22 14:44 | NUR ---
Discharge instructions reviewed with patient and spouse, verbalized understanding. Discharged via wheelchair to auto/home with spouse at 1430.
== END 2021-03-22 14:30 | disposition home or self-care (01) ==
LOC: COL.ER 04:47 → SURG 09:20
PROVIDERS: Personal Emergency Response Attendant; ADMIT Internal Medicine
DX: M79.18 Myalgia, other site (principal); K80.70 Calculus of gallbladder and bile duct without cholecystitis without obstruction; K59.00 Constipation, unspecified; E11.9 Type 2 diabetes mellitus without complications; I10 Essential (primary) hypertension; E78.5 Hyperlipidemia, unspecified; E03.9 Hypothyroidism, unspecified; G89.29 Other chronic pain; M54.5 Low back pain; F32.9 Major depressive disorder, single episode, unspecified; Z79.84 Long term (current) use of oral hypoglycemic drugs; Z79.899 Other long term (current) drug therapy; Z79.890 Hormone replacement therapy
CPT/HCPCS: G0378; J0360; J1644; J2270; J2405; J7030; Q9967

== ENCOUNTER 2021-09-28 13:12 | Inpatient (IN) | payer MEDICARE, OTHER ==
[2021-09-28] VITALS (149 sets, daily range): BP systolic 86–135; BP diastolic 36–80; PULSE 68–79; TEMP 98.2–98.3; O2SAT 53–100
[~2021-09-28] VITALS: Ht 162.6 cm; Wt 66.7 kg
[~2021-09-28 13:12] MED LIST changes: +GLUCOPHAGE XR500 M1 PO; +ZOFRAN ODT4 MG PO
[2021-09-28 13:43] LABS: BASO # 0.1 K/mm3 (0.0-0.2); BASO % 0.8 % (0.0-2.0); EOS % 0.7 % (0.0-4.0); GRAN # 4.2 K/mm3 (1.4-6.5); GRAN % 68.7 % (42.2-75.2); LYMPH # 1.1 K/mm3 (1.2-3.4); LYMPH % 17.6 % (20.0-51.0); MEAN CELL VOLUME 80 fl (80.0-100.0); MEAN CORPUSCULAR HGB CONC 32 g/dl (33.0-37.0); MEAN PLATELET VOLUME 10.4 fl (7.4-10.4); MONO # 0.7 K/mm3 (0.1-0.6); MONO % 11.9 % (1.7-9.3); PLATELET COUNT 224 K/mm3 (130-400); RED BLOOD COUNT 4.55 M/mm3 (4.10-5.30)
[2021-09-28 13:49] LABS: HEMATOCRIT 36.2 % (37.0-47.0); HEMOGLOBIN 11.7 g/dl (12.5-16.0); INR 1.1 (0.8-3.0); MEAN CORPUSCULAR HEMOGLOBIN 26 pg (27-31); PROTHROMBIN TIME 12.5 SECONDS (9.7-12.8)
[2021-09-28 13:51] LABS: PARTIAL THROMBOPLASTIN TIME 26.2 SECONDS (26.0-37.0)
[2021-09-28 13:57] LABS: ALANINE AMINOTRANSFERASE 18 U/L (0-55); ALBUMIN 3.8 gm/dL (3.4-4.8); ALKALINE PHOSPHATASE 76 U/L (40-150); ANION GAP 14 mmol/L (7-16); AST,SGOT 50 U/L (5-34); BILIRUBIN,TOTAL 1.4 mg/dL (0.2-1.2); BLOOD UREA NITROGEN 53 mg/dL (10-20); C-REACTIVE PROTEIN 0.47 mg/dL (0.00-0.50); CARBON DIOXIDE 22 mmol/L (23-31); CHLORIDE 99 mmol/L (98-107); CREATININE, serum 3.07 mg/dL (0.57-1.11); GLUCOSE 125 mg/dL (70-99); POTASSIUM 3.8 mmol/L (3.5-4.5); SODIUM 135 mmol/L (136-145); TOTAL PROTEIN 6.9 gm/dL (6.2-8.1)
[2021-09-28 13:59] LABS: ALCOHOL(ethanol),MEDICAL < 10 mg/dL (0-10)
[2021-09-28 14:09] LABS: TROPONIN-I 0.114 ng/mL (0.00-0.033)
[2021-09-28 15:24] LABS: HEMATOCRIT 30.9 % (37.0-47.0); HEMOGLOBIN 9.9 g/dl (12.5-16.0)
--- NOTE | 2021-09-28 17:42 | NUR ---
RECEIVED REPORT FROM DENNYS MONK IN ER. RN STATES SHE IS GOING TO TAKE PT TO CT BEFORE COMING TO ICU 4.
--- NOTE | 2021-09-28 18:18 | NUR ---
PT ARRIVES TO ICU 4 VIA BED ON 2L VIA NC. PT ASSISTED TO ICU BED AND PLACED ON BEDSIDE CONTINUOUS MONITOR. DENNYS MONK STATES PT WOKE UP IN CT AND SBP ENDED UP IN 180s AND LEVO GTT WAS PLACED ON HOLD IN TX TO ICU FROM CT. LEVO GTT NOTED IS ON HOLD, WILL MONITOR VS CLOSELY TO SEE IF PT REQUIRES IT ANYMORE. CALL LIGHT WITHIN REACH. BEDALARM PLACED.
[2021-09-28 18:51] LABS: COLLECTION METHOD CATHETER
[2021-09-28 18:56] LABS: PH 5 (5-8); SQUAMOUS EPITHELIAL 0-2 /hpf (0-10); URINE APPEARANCE Hazy (CLEAR/HAZY); URINE BACTERIA Rare /hpf (NONE SEEN); URINE BILIRUBIN Negative (NEGATIVE); URINE BLOOD 1+ (NEGATIVE); URINE COLOR Yellow (YELLOW); URINE GLUCOSE Negative (NEGATIVE); URINE KETONE Negative (NEGATIVE); URINE LEUKOCYTE ESTERASE 1+ (NEGATIVE); URINE NITRATE Negative (NEGATIVE); URINE PROTEIN(semi-quant) 2+ (NEGATIVE); URINE RBC 0-2 /hpf (0-2); URINE UROBILINOGEN Negative (NEGATIVE)
--- NOTE | 2021-09-28 20:00 | NUR ---
PATIENT IS AWARE OF SURROUNDINGS/ HAS MOMENTS DURING ASSESSMENT CONVERSATION PATIENT WILL ASKS QUESTIONS UNRELATED TO TOPICS AT HAND, AND THEN WILL INGNORE THE QUESTION AND BE BACK ON TASK.
--- NOTE | 2021-09-28 20:30 | NUR ---
TALKED WITH PATIENT ABOUT RX MEDS AT HOME AND SHE STATED HER MED LIST IS IN HER PURSE SHE WISHED SHE WOULD HAVE BROUGHT IT/ THEN CALLED SPOUSE AT HOME FOR MEDLIST AND HE LOOKED IN PURSE AND COULDNT FIND LIST. FAMILT AKED ABOUT USING [facility] FOR ALL THE PATIENT'S NEEDS THEY WILL HAV LIST. THEN THIS AM PATIENT TALKS ABOUT CLEANING OUT PURSE AND SHE KNEW THAT IS WHY COULDNT FIND LIST
[2021-09-28 21:21] LABS: HEMOGLOBIN 10.5 g/dl (12.5-16.0)
[2021-09-28] MEDS ORDERED: DITROPAN XL 5MG5 M1 PO (21:29)
[2021-09-29] VITALS (578 sets, daily range): BP systolic 91–142; BP diastolic 43–85; PULSE 58–77; TEMP 97.7–98.9; O2SAT 32–100
[2021-09-29] MEDS ORDERED: DEPAKOTE ER 50500 MG PO (01:10)
[2021-09-29 04:31] LABS: BASO # 0.1 K/mm3 (0.0-0.2); BASO % 1.1 % (0.0-2.0); EOS # 0.1 K/mm3 (0.0-0.7); EOS % 2.7 % (0.0-4.0); GRAN # 3.2 K/mm3 (1.4-6.5); GRAN % 66.9 % (42.2-75.2); LYMPH # 0.8 K/mm3 (1.2-3.4); LYMPH % 17.7 % (20.0-51.0); MEAN CELL VOLUME 82 fl (80.0-100.0); MEAN CORPUSCULAR HGB CONC 32 g/dl (33.0-37.0); MEAN PLATELET VOLUME 10.6 fl (7.4-10.4); MONO # 0.5 K/mm3 (0.1-0.6); MONO % 11.2 % (1.7-9.3); PLATELET COUNT 164 K/mm3 (130-400); RED BLOOD COUNT 3.74 M/mm3 (4.10-5.30); REDCELL DISTRIBUTION WIDTH-CV 14.2 % (11.5-14.5)
[2021-09-29 04:43] LABS: ALBUMIN 2.8 gm/dL (3.4-4.8); BILIRUBIN,TOTAL 0.5 mg/dL (0.2-1.2); C-REACTIVE PROTEIN 0.87 mg/dL (0.00-0.50); CALCIUM 7.8 mg/dL (8.4-10.2); CREATININE, serum 1.74 mg/dL (0.57-1.11); MAGNESIUM 1.8 mg/dL (1.6-2.6); POTASSIUM 3.4 mmol/L (3.5-4.5); TOTAL PROTEIN 5.1 gm/dL (6.2-8.1)
[2021-09-29 04:44] LABS: HEMATOCRIT 30.5 % (37.0-47.0); HEMOGLOBIN 9.6 g/dl (12.5-16.0); MEAN CORPUSCULAR HEMOGLOBIN 26 pg (27-31)
[2021-09-29 04:55] LABS: TROPONIN-I 0.051 ng/mL (0.00-0.033)
[2021-09-29 05:09] LABS: ERYTHROCYTE SEDIMENTATION RATE 6 mm/hr (0-30)
--- NOTE | 2021-09-29 10:20 | NUR ---
Initial visit; Patient thanked Photoengraving Photographer for stopping by, offering encouragement and keeping her in Photoengraving Photographer's prayers.
--- NOTE | 2021-09-29 14:17 | NUR ---
Security Officer met with patient to discuss discharge planning. Patient lives in [place] with her , Amos (ph#[phone]) [address] Dejesus for primary care. Patient obtains medications from [facility] pharmacy. Patient reports she has a walker, cane, and wheelchair. Patient states they use a wheelchair when out and about because it's easier. Patient reports she is normally independent with ADLS and is not normally on oxygen. Patient states she does cook at home but that they also have Meals on Wheels set up. Patient stated her , Amos is DPOA-HC. Patient also advised that she plans to return home upon discharge. SW contacted Amos and left him a message. Discharge Plan: Home, may need HH or Post Acute Rehab
--- NOTE | 2021-09-29 16:00 | NUR ---
MIKE SET UP FOR 0945 OR 1000 09/30/[address] PINEDA. VERIFIED WITH SENIOR MECHANICAL PROJECT MANAGER AND ANESTHESIA.
--- NOTE | 2021-09-29 18:41 | NUR ---
Report given to Medical floor Nurse katherine for room 311. PT recieved food tray, will let PT eat food tray, then will be transported by wheelchair.
--- NOTE | 2021-09-29 20:00 | NUR ---
Arrived to room 311 from ICU via wheelchair. Assumed care for overnight stocker. Assessment complete. A&Ox4-forgetful. Denies pain/nausea/shortness of breath. VS stable. PICC to right upper arm flushes well/good blood return. Oriented to room/policy. Plan of care discussed for this shift to include meds/NPO at midnight/calling for questions/concerns. Verbalizes understanding. Call light in reach. Will monitor.
--- NOTE | 2021-09-29 23:44 | NUR ---
C/O back pain-rating pain 8/10 on pain scale described as constant ache with intermittent sharpness. Spoke with ROSALINDA [id number] orders received and initiated.
[2021-09-30] VITALS (7 sets, daily range): BP systolic 128–162; BP diastolic 50–85; PULSE 72–83; TEMP 97.7–98.1
--- NOTE | 2021-09-30 02:23 | NUR ---
Sitting up in chair with k pad on for comfort. States tylenol did help with pain earlier. Denies current questions/concerns. Call light in the [facility]. Will monitor.
--- NOTE | 2021-09-30 05:41 | NUR ---
Rested off and on this shift. K pad/tylenol helped with back pain-as well as sleeping in recliner. Has been NPO since 0000 for MIKE. PICC to right upper arm slushes well with good blood return. Currently on room air. VS remained stable. Denies current needs. Call light in reach. Will monitor.
[2021-09-30 05:42] LABS: BASO % 0.6 % (0.0-2.0); EOS # 0.2 K/mm3 (0.0-0.7); EOS % 2.2 % (0.0-4.0); GRAN # 4.6 K/mm3 (1.4-6.5); GRAN % 67.2 % (42.2-75.2); HEMOGLOBIN 10.3 g/dl (12.5-16.0); LYMPH # 1.3 K/mm3 (1.2-3.4); MEAN CELL VOLUME 82 fl (80.0-100.0); MEAN CORPUSCULAR HEMOGLOBIN 25 pg (27-31); MEAN CORPUSCULAR HGB CONC 31 g/dl (33.0-37.0); MEAN PLATELET VOLUME 10.8 fl (7.4-10.4); MONO # 0.7 K/mm3 (0.1-0.6); MONO % 10.4 % (1.7-9.3); PLATELET COUNT 167 K/mm3 (130-400); RED BLOOD COUNT 4.06 M/mm3 (4.10-5.30); REDCELL DISTRIBUTION WIDTH-CV 14.6 % (11.5-14.5)
[2021-09-30 05:49] LABS: HEMATOCRIT 33.4 % (37.0-47.0)
[2021-09-30 06:09] LABS: ALBUMIN 3.3 gm/dL (3.4-4.8); BILIRUBIN,TOTAL 0.9 mg/dL (0.2-1.2); C-REACTIVE PROTEIN 1.5 mg/dL (0.00-0.50); CALCIUM 8.5 mg/dL (8.4-10.2); CREATININE, serum 0.77 mg/dL (0.57-1.11); POTASSIUM 4.3 mmol/L (3.5-4.5); TOTAL PROTEIN 5.9 gm/dL (6.2-8.1)
--- NOTE | 2021-09-30 07:40 | NUR ---
PT PLEASANT,AOX4, REPORTS PAIN IN BACK, UP TO CHAIR BRUSHING TEETH AT THIS TIME, CALL LIGHT WITHIN REACH, ASSESSMENT PERFORMED, STUDENT TO ADMINISTER MEDICATION, NO OTHER NEEDS
--- NOTE | 2021-09-30 09:47 | NUR ---
PT TAKEN DOWN FOR MIKE, REPORTING WORSENING BACK PAIN
--- NOTE | 2021-09-30 11:15 | NUR ---
PT TAKEN TO MRI POST MIKE
--- NOTE | 2021-09-30 11:33 | NUR ---
PT RETURNED FROM MRI
--- NOTE | 2021-09-30 12:04 | NUR ---
PT BACK TO BASELINE WITH VITALS, AO, NO OTHER NEEDS
--- NOTE | 2021-09-30 15:31 | NUR ---
PT/OT are recommending home health vs post-acute rehab depending on progress. ELZA met with the patient and her , Amos, to review their recommendation. The patient states that she had no issues until she came into the hospital. She believes it is the hospital bed that are contributing to her weakness. The patient states that she will not being going to a SNF, but is agreeable to home health. She states that she used to have [facility] and would want them again. ELZA contacted and faxed a referral to Sarah at [facility]. Sarah reports that they are able to accept the patient. *Discharge plan: home with and home health*
--- NOTE | 2021-09-30 17:48 | NUR ---
PT ASLEEP IN CHAIR AFTER TRAMADOL, PT PLEASANT, UNABLE TO PERFORM MRI DUE TO PT UNABLE TO LAY FLAT, PT DENIES ANY OTHER NEEDS
--- NOTE | 2021-09-30 19:40 | NUR ---
Bedside shift report received, assumed care for rn shift mgr. Assessment complete. A&Ox4. Denies nausea/shortness of breath. Rating pain 6/10 on pain scale to back-states she wants to wait a little longer before taking her pain meds. Sitting up in chair eating dinner. Tele reporting SR. Right upper arm PICC flushes well with good blood return. Neuros WNL. Plan of care discussed for this shift to include meds/pain control/calling for questions/concerns. Verbalizes understanding. Call light in reach. Will monitor.
--- NOTE | 2021-09-30 21:00 | NUR ---
Patient c/o back pain-rating pain 8/10-described as constant throbbing. Tramadol given per dr order.
[2021-10-01 03:36] VITALS: BP 150/69; PULSE 79; TEMP 97.4
--- NOTE | 2021-10-01 05:18 | NUR ---
Rested better this shift with having tramadol for back pain. Still slept in recliner. Is able to get up out of chair with more ease. Denies nausea/shortness of breath. VS remained stable. Denies current needs. Call light in reach. Will monitor.
[2021-10-01 07:30] LABS: BASO % 0.8 % (0.0-2.0); EOS # 0.2 K/mm3 (0.0-0.7); EOS % 4.9 % (0.0-4.0); GRAN # 2.2 K/mm3 (1.4-6.5); GRAN % 57.4 % (42.2-75.2); LYMPH # 0.9 K/mm3 (1.2-3.4); LYMPH % 23.5 % (20.0-51.0); MEAN CELL VOLUME 85 fl (80.0-100.0); MEAN CORPUSCULAR HGB CONC 31 g/dl (33.0-37.0); MEAN PLATELET VOLUME 11.8 fl (7.4-10.4); MONO # 0.5 K/mm3 (0.1-0.6); MONO % 12.9 % (1.7-9.3); PLATELET COUNT 155 K/mm3 (130-400); RED BLOOD COUNT 3.65 M/mm3 (4.10-5.30); REDCELL DISTRIBUTION WIDTH-CV 14.6 % (11.5-14.5)
[2021-10-01 07:33] VITALS: BP 152/65; PULSE 75; TEMP 97.8
[2021-10-01 07:37] LABS: HEMATOCRIT 31.1 % (37.0-47.0); HEMOGLOBIN 9.5 g/dl (12.5-16.0); MEAN CORPUSCULAR HEMOGLOBIN 26 pg (27-31)
[2021-10-01 07:41] LABS: CALCIUM 8.4 mg/dL (8.4-10.2); CREATININE, serum 0.65 mg/dL (0.57-1.11); POTASSIUM 4.1 mmol/L (3.5-4.5)
[2021-10-01 11:08] VITALS: BP 148/65; PULSE 72; TEMP 98.8
[2021-10-01 15:47] VITALS: BP 128/58; PULSE 76; TEMP 98.2
--- NOTE | 2021-10-01 18:32 | NUR ---
TROUGH TODAY WAS 6.8MCG/ML AFTER TWO DOSES. CREATININE TODAY WAS 0.65MG/DL WILL INCREASE DOSE TO VANCOMYCIN IV 1250MG EVERY 24 HOURS OVER 1.5 HOURS. ESTIMATED AUC/MINOO: 458MCG*HR/ML; ESTIMATED TROUGH 13.9MCG/mL NEXT TROUGH SUNDAY PRIOR TO DOSE.
--- NOTE | 2021-10-01 19:45 | NUR ---
Bedside shift report received, assumed care for night order selector. Assessment complete. A&Ox4. Denies nausea/shortness of breath. Rating pain 5/10 on pain scale-described as constant ache-states she wants to wait a little while before taking pain medication. K pad in place. TELE reports SR. PEEWEE WNL. PICC to right upper arm flushes well with good blood return. Plan of care discussed for this shift to include meds/calling for questions/concerns. Verbalizes understanding. Call light in reach. Will monitor.
[2021-10-01 20:38] VITALS: BP 159/62; PULSE 84; TEMP 98.4
--- NOTE | 2021-10-01 20:45 | NUR ---
C/O pain to back-rating pain 03/22-described as constant ache with intermittent sharp jabs. Tramadol given per dr order.
[2021-10-02] VITALS (9 sets, daily range): BP systolic 113–184; BP diastolic 58–98; PULSE 71–91; TEMP 97.7–98.7
--- NOTE | 2021-10-02 01:30 | NUR ---
Resting eyes closed in recliner. No s/s of pain or discomfort noted. Will monitor.
--- NOTE | 2021-10-02 03:45 | NUR ---
Noted to have elevated blood pressure via MISAEL. Taken manually at this time by this nurse-162/68. Discussed pain level and currently states pain is 10/10 on pain scale-described as constant ache with intermittent sharpness. Tramadol given per dr order. Will reassess BP in one hour.
--- NOTE | 2021-10-02 05:35 | NUR ---
Rested off and on this shift in recliner. Received tramadol x2 for back pain. Denied shortness of breath/nausea. VS remained stable. Denies current needs. Call light in reach. Will monitor.
--- NOTE | 2021-10-02 07:40 | NUR ---
PT PLEASANT, AOX4, REPORTS PAIN 10/10 IN BACK, THEN REPORTS PAIN 8/10 AFTER TRAMADOL GIVEN, ASSESSMENT PERFORMED, MEDICATIONS GIVEN, NO OTHER NEEDS, ASSISTED PT BRUSHING TEETH, NO OTHER NEEDS
--- NOTE | 2021-10-02 10:24 | NUR ---
REASSESSED PT PAIN AND PT REPORTING 8/10 PAIN
--- NOTE | 2021-10-02 16:52 | NUR ---
HEATING PAD IN PLACE, LYRICA REORDERED FOR BEDTTIME FOR PT, PT AOX4, HYGIENE CARES PERFORMED, ANX INFUSING, MRI TO BE PERFORMED TOMORROW
[2021-10-03] VITALS (8 sets, daily range): BP systolic 110–183; BP diastolic 52–88; PULSE 72–90; TEMP 98–98.8
--- NOTE | 2021-10-03 06:30 | NUR ---
ASSESSMENT COMPLETE FOR THIS SHIFT. PT ON THE BEDSIDE TOILET WHEN I WALKED IN FOR ASSESSMENT. PT COMPLAINED OF HAVING TO "PEE" EVERY 15 MINUTES AND OF EXHAUSTION FROM HAVING TO GO SO OFTEN. PT REQUESTED THAT THE PHYSICIAN BE CALLED AND ASKED FOR SOMETHING TO HELP HER STOP PEEING SO MUCH. HOSPITAL CALLED, MARLON ORDERED AND GIVEN. PT FELT THAT IT HELPED HER. PT ALSO COMPLAINED OF BACK PAIN AROUND 2320HRS. PT GIVEN TRAMADOL FOR PAIN. PT UNSURE IF IT WAS EFFECTIVE, BUT DOESN'T WANT ANYTHING ELSE AT THIS TIME. PT DENIED PALPITATIONS, N,V,D OR DIZZINESS. PT EXPRESSED NO OTHER NEEDS AT THIS TIME. CALL LIGHT WITHIN REACH.
[2021-10-03 06:46] LABS: MEAN CELL VOLUME 85 fl (80.0-100.0); MEAN CORPUSCULAR HGB CONC 31 g/dl (33.0-37.0); MEAN PLATELET VOLUME 11.3 fl (7.4-10.4); PLATELET COUNT 181 K/mm3 (130-400); RED BLOOD COUNT 3.76 M/mm3 (4.10-5.30); REDCELL DISTRIBUTION WIDTH-CV 14.8 % (11.5-14.5)
[2021-10-03 06:47] LABS: CALCIUM 8.4 mg/dL (8.4-10.2); CREATININE, serum 0.8 mg/dL (0.57-1.11); POTASSIUM 3.8 mmol/L (3.5-4.5)
[2021-10-03 06:50] LABS: HEMATOCRIT 31.9 % (37.0-47.0); HEMOGLOBIN 9.9 g/dl (12.5-16.0); MEAN CORPUSCULAR HEMOGLOBIN 26 pg (27-31)
--- NOTE | 2021-10-03 07:40 | NUR ---
PT PLEASANT, STATING PAIN IS BETTER THIS AM THAN PREVIOUS, ASSESSMENT PERFORMED, MEDICATIONS GIVEN, ANX INFUSING PER ORDER. AROUND 0830 PAIN MEDICATION GIVEN FOR PT TO TOLERATE MRI, TAKEN DOWN FOR MRI AND UNABLE TO TOLERATE.
--- NOTE | 2021-10-03 17:55 | NUR ---
PT AOX4, REPORTS CHRONIC BACK PAIN, APPEARS ANXIOUS ABOUT PT WITH RECENT DIAGNOSIS OF ALZHEIMERS AND HOW SHE WILL CARE FOR HIM AT HOME IN ADVANCING STAGES OF DISEASE. PT MENTIONED POSSIBLY MOVING INTO [facility]-TER[facility] FOR CARE FOR BOTH OF THEM AND BEING STRESSED ABOUT THAT DECISION. PT AGREEABLE TO MRI TOMORROW BUT APPEARS HESITANT. NO OTHER NEEDS
[2021-10-04] VITALS (7 sets, daily range): BP systolic 143–188; BP diastolic 71–98; PULSE 70–78; TEMP 98.3–98.4
--- NOTE | 2021-10-04 07:33 | NUR ---
ASSESSMENT COMPLETE FOR THIS SHIFT. PT RESTING IN HER RECLINER NAPPING. PT COMPLAINED OF BACK PAIN. PT GIVEN TRAMADOL FOR PAIN. PT FELT PAIN MEDICATION WAS EFFECTIVE. PT DENIED PALPITATIONS, N,V,D, SOB OR DIZZINESS. PT NPO AFTER MIDNIGHT. PT EXPRESSED NO OTHER NEEDS AT THIS TIME. CALL LIGHT WITHIN REACH.
--- NOTE | 2021-10-04 08:00 | NUR ---
PT PLEASANT, AOX4, REPORTS PAIN IN BACK, PAIN MEDICATIONS GIVEN, PT NPO AT THIS TIME, ASSESSMENT PERFORMED, PT HAS HEALED ULCER THAT APPEARS ONCE TUNNELED, NO OTHER NEEDS
--- NOTE | 2021-10-04 14:55 | NUR ---
The patient is to have an MRI with sedation today. The clinical team is also looking at transferring the patient to [facility] to continue to follow.
--- NOTE | 2021-10-04 17:12 | NUR ---
PHYSICIAN NOTIFIED OF HTN, NO NEW ORDERS AT THIS TIME, PT REPORTS CHRONIC BACK PAIN, PT PLEASANT, NO OTHER NEEDS
--- NOTE | 2021-10-04 17:26 | NUR ---
LOW SUGAR REPORTED BY SHARA, 4OZ JUICE PROVIDED TO PT, WILL REASSESS
[2021-10-05] VITALS (7 sets, daily range): BP systolic 145–180; BP diastolic 61–115; PULSE 68–73; TEMP 98.2–99
--- NOTE | 2021-10-05 04:00 | NUR ---
ASSESSMENT COMPLETE FOR THIS SHIFT. PT RESTING IN HER RECLINER NAPPING. PT COMPLAINED OF BACK PAIN. PT GIVEN TRAMADOL FOR PAIN. PT DENIED PALPITATIONS, SOB, N,V,D, OR DIZZINESS. PT EXPRESSED NO OTHER NEEDS AT THIS TIME. CALL LIGHT WITHIN REACH.
[2021-10-05 06:31] LABS: BASO # 0.1 K/mm3 (0.0-0.2); BASO % 1.5 % (0.0-2.0); EOS # 0.3 K/mm3 (0.0-0.7); EOS % 6.4 % (0.0-4.0); GRAN # 2.1 K/mm3 (1.4-6.5); GRAN % 53.9 % (42.2-75.2); HEMOGLOBIN 10.4 g/dl (12.5-16.0); LYMPH % 25.4 % (20.0-51.0); MEAN CELL VOLUME 83 fl (80.0-100.0); MEAN CORPUSCULAR HEMOGLOBIN 26 pg (27-31); MEAN CORPUSCULAR HGB CONC 31 g/dl (33.0-37.0); MEAN PLATELET VOLUME 11.4 fl (7.4-10.4); MONO # 0.5 K/mm3 (0.1-0.6); PLATELET COUNT 220 K/mm3 (130-400); RED BLOOD COUNT 4.01 M/mm3 (4.10-5.30); REDCELL DISTRIBUTION WIDTH-CV 14.8 % (11.5-14.5)
[2021-10-05 06:45] LABS: HEMATOCRIT 33.2 % (37.0-47.0)
[2021-10-05 06:55] LABS: CALCIUM 8.9 mg/dL (8.4-10.2); CREATININE, serum 0.71 mg/dL (0.57-1.11)
--- NOTE | 2021-10-05 13:40 | NUR ---
[facility] reviewed the patient's information and they do not feel like the patient needs transferred. NM is recommending that the patient will need IV Rocephin 2 gm daily for 4 weeks. ELZA met with the patient to update on this and discussed going to a SNF to continue therapy and to receive the antibiotics, coming to our Express Unit to receive the antibiotics, or the option of going home with home health and IV antibiotics. The patient reports that she would prefer to go home and receive the antibiotics at home. ELZA informed her how her and her would have to be teachable and home health is not going to be in the home all the time to assist with antibiotics. The patient verbalized understanding and states that she would still like to try for home and if it does not work out, then she could come to the Express Unit. ELZA contacted Saranya, rn case mgr, with the patient's PCP's office to update on the above and to inquire about any concerns. Saranya reports that she talked to the patient's PCP, Dr. Dejesus, and his RN; and with the patient and her 's history of dementia, they definitely recommend SNF. She reports that the patient also has a history of turning home health away when she does not feel like working with them. ELZA notified the PA. The hospitalist plans to talk to the patient about her PCP's recommendation and theirs for SNF and how it would not be safe to return home with the PICC line and antibiotics. ELZA contacted Chaim at [facility] and gave her a referral. ELZA contacted and faxed a referral to [facility] and [facility]. Awaiting screens.
--- NOTE | 2021-10-05 14:22 | NUR ---
The hospitalist notified ELZA that she spoke to the patient and her about how the clinical team and her PCP are recommending SNF. The patient is supportive and agreeable to SNF. ELZA then met with the patient and her , Amos, and reviewed SNF and the referrals. The patient and her would prefer to stay in [place], but are open to SNF now. Alejandrina, at [facility], reports that they have declined the patient.
--- NOTE | 2021-10-05 18:27 | NUR ---
Patient has done well today, has not expressed any complaints/concerns. Remains a 1x assist and uses the BSC.
--- NOTE | 2021-10-05 21:00 | NUR ---
Brown is sitting in bed, alert and oriented x 4, VSS. Reports pain in her back. PRN provided. Required prep h for her hemorroids, contacted Melissa to add med and provide. Telemetry in place, SOPHIARRA. Had some soft BM just before change shift. Assessment completed, medications provided. No other needs at this time. Call gaurav hall.
--- NOTE | 2021-10-06 01:13 | NUR ---
Pt had HBP 180/63 while recheching was 170. Reported to Melissa. Hydralizine dose oredered. Provided. Continue monitoring.
[2021-10-06 04:01] VITALS: BP 165/63; PULSE 85; TEMP 98.5
--- NOTE | 2021-10-06 06:32 | NUR ---
PT likes to sleep in the chair with the legs extended. Had several episodes using commode. Continues at RA and with chronic pain. Pt had episodes of HBP, SBP 160-180. Hydralazine provided. Report will be given to day RN.
[2021-10-06 07:00] LABS: BASO # 0.1 K/mm3 (0.0-0.2); BASO % 0.9 % (0.0-2.0); EOS # 0.3 K/mm3 (0.0-0.7); EOS % 4.4 % (0.0-4.0); GRAN # 3.8 K/mm3 (1.4-6.5); GRAN % 68.2 % (42.2-75.2); HEMOGLOBIN 10.8 g/dl (12.5-16.0); LYMPH # 0.9 K/mm3 (1.2-3.4); MEAN CELL VOLUME 82 fl (80.0-100.0); MEAN CORPUSCULAR HEMOGLOBIN 26 pg (27-31); MEAN CORPUSCULAR HGB CONC 32 g/dl (33.0-37.0); MEAN PLATELET VOLUME 11.7 fl (7.4-10.4); MONO # 0.6 K/mm3 (0.1-0.6); PLATELET COUNT 245 K/mm3 (130-400); RED BLOOD COUNT 4.19 M/mm3 (4.10-5.30); REDCELL DISTRIBUTION WIDTH-CV 14.8 % (11.5-14.5)
[2021-10-06 07:11] LABS: HEMATOCRIT 34.3 % (37.0-47.0)
[2021-10-06 07:13] LABS: CALCIUM 9.3 mg/dL (8.4-10.2); CREATININE, serum 0.8 mg/dL (0.57-1.11); POTASSIUM 3.5 mmol/L (3.5-4.5)
[2021-10-06 07:50] VITALS: BP 140/64; PULSE 75; TEMP 98.7
[2021-10-06] MEDS ORDERED: LIPITOR 40MG TA40 MG PO (10:18)
[2021-10-06] MEDS ORDERED: ASPIRIN E.C. 8181 MG PO (10:18)
[2021-10-06] MEDS ORDERED: ROCEPHIN 2GM VIAL21 IV (10:20)
[2021-10-06 11:00] VITALS: BP 149/46; PULSE 84; TEMP 98.8
--- NOTE | 2021-10-06 11:03 | NUR ---
ELZA attended clinical rounds. The team is ready to discharge the patient today. ELZA notified Gilson at [facility]. Gilson reports that the patient's secondary insurance does not cover SNF, so the patient would have an [id number] cost of $176 a day, starting on the day. With the patient and her 's history of dementia. ELZA contacted the patient's son/alternate DPOA-HC, Gutierrez, to update. Gutierrez reports that his goal is that the patient can discharge home by day 21. He states that he could transport the patient to the Express Unit to receive the outpatient antibiotics. He states that if she is not ready to discharge by day 21, they are okay with private paying. ELZA updated Gilson at [facility]. Gilson reports that they are able to accept the patient today. ELZA updated the patient, her , and Gutierrez. The patient is to discharge today, 10/06, to [place] [facility] for a skilled stay. Transportation was scheduled at 1200, via [facility]. ELZA informed the patient, her , RN, and the patient's son (Gutierrez) over the phone. ELZA also read the IM form outloud to Gutierrez over the phone. Gutierrez verbalized understanding and gave ELZA approval to sign the form on his behalf. No additional needs at this time.
--- NOTE | 2021-10-06 11:18 | NUR ---
Patient doing well today; Will be transfering to [facility] @ 1200. Patient worked w/ PT and walked from her room to the nurses station. Patient does not have any complaints; Is a little concerned about going to a SNF. Reassurance provided.
[2021-10-06] MEDS ORDERED: LYRICA 75MG CAP75 MG PO (11:32)
[2021-10-06] MEDS ORDERED: ROCEPHIN VIA1 G/VIAL IJ (11:46)
[2021-10-06] MEDS ORDERED: ROCEPHIN VIA1 G/VIAL IV (11:47)
--- NOTE | 2021-10-06 12:41 | NUR ---
Patient discharged to [facility]; Report called and given to nurse taking over care.
== END 2021-10-06 12:00 | DRG 288 ==
LOC: COL.ER 13:12 → MEDICAL 16:52 → ICU 16:52 → MEDICAL 09-29 18:17
PROVIDERS: Family Medicine; Internal Medicine; Internal Medicine Sleep Medicine; Physician Assistant; ADMIT Internal Medicine
PROC: 02HV33Z Insertion of Infusion Device into Superior Vena Cava, Percutaneous Approach (ICD-10-PCS; principal; 2021-09-28)
DX: I33.0 Acute and subacute infective endocarditis (principal); J96.01 Acute respiratory failure with hypoxia; R57.1 Hypovolemic shock; G93.41 Metabolic encephalopathy; N17.9 Acute kidney failure, unspecified; N13.6 Pyonephrosis; I76 Septic arterial embolism; I25.10 Atherosclerotic heart disease of native coronary artery without angina pectoris; F32.9 Major depressive disorder, single episode, unspecified; F41.9 Anxiety disorder, unspecified; I10 Essential (primary) hypertension; E78.5 Hyperlipidemia, unspecified; E11.51 Type 2 diabetes mellitus with diabetic peripheral angiopathy without gangrene; E11.40 Type 2 diabetes mellitus with diabetic neuropathy, unspecified; G40.909 Epilepsy, unspecified, not intractable, without status epilepticus; E03.9 Hypothyroidism, unspecified; J45.909 Unspecified asthma, uncomplicated; G89.29 Other chronic pain; D64.9 Anemia, unspecified; M54.50 Low back pain, unspecified; D69.6 Thrombocytopenia, unspecified; K44.9 Diaphragmatic hernia without obstruction or gangrene; M48.00 Spinal stenosis, site unspecified; Z20.822 Contact with and (suspected) exposure to COVID-19; Z85.828 Personal history of other malignant neoplasm of skin; Z86.73 Personal history of transient ischemic attack (TIA), and cerebral infarction without residual deficits; Z79.84 Long term (current) use of oral hypoglycemic drugs; Z23 Encounter for immunization
CPT/HCPCS: 99223-AI; 99231-AI; 99232-AI; 99233-AI; 99239; A9575; C1751; C1892; J0360; J0696; J1644; J2270; J2405; J2543; J2704; J3010; J3370; J3475; J3480; J7030; J7050; J7060

== ENCOUNTER 2021-10-16 14:39 | Emergency (ER) | payer MEDICARE, OTHER ==
[~2021-10-16] VITALS: Ht 160 cm; Wt 62.3 kg
[~2021-10-16 14:39] MED LIST changes: +ROCEPHIN 2GM VIAL21 IV; +ROCEPHIN VIA1 G/VIAL IJ; +ROCEPHIN VIA1 G/VIAL IV
[2021-10-16 14:45] VITALS: TEMP 98.3
[2021-10-16 16:35] LABS: BASO # 0.1 K/mm3 (0.0-0.2); BASO % 1.3 % (0.0-2.0); EOS # 0.2 K/mm3 (0.0-0.7); EOS % 2.1 % (0.0-4.0); GRAN # 6.2 K/mm3 (1.4-6.5); GRAN % 72.4 % (42.2-75.2); HEMATOCRIT 40.2 % (37.0-47.0); HEMOGLOBIN 12.2 g/dl (12.5-16.0); LYMPH # 1.2 K/mm3 (1.2-3.4); LYMPH % 14.6 % (20.0-51.0); MEAN CELL VOLUME 84 fl (80.0-100.0); MEAN CORPUSCULAR HEMOGLOBIN 25 pg (27-31); MEAN CORPUSCULAR HGB CONC 30 g/dl (33.0-37.0); MEAN PLATELET VOLUME 10.8 fl (7.4-10.4); MONO # 0.8 K/mm3 (0.1-0.6); MONO % 8.9 % (1.7-9.3); PLATELET COUNT 275 K/mm3 (130-400); REDCELL DISTRIBUTION WIDTH-CV 14.9 % (11.5-14.5)
[2021-10-16 16:55] LABS: ALBUMIN 3.8 gm/dL (3.4-4.8); BILIRUBIN,TOTAL 0.2 mg/dL (0.2-1.2); CALCIUM 9.2 mg/dL (8.4-10.2); CREATININE, serum 0.84 mg/dL (0.57-1.11); POTASSIUM 4.1 mmol/L (3.5-4.5); TOTAL PROTEIN 7.8 gm/dL (6.2-8.1)
[2021-10-16] MEDS ORDERED: SENOKOT S 50 MG1 TAB PO (19:07)
[2021-10-16] MEDS ORDERED: MIRALAX510G PO (19:07)
[2021-10-16 20:23] VITALS: BP 146/70; PULSE 86
== END 2021-10-16 20:24 | disposition home or self-care (01) ==
LOC: COL.ER 14:39
PROVIDERS: Physician Assistant
DX: K62.3 Rectal prolapse (principal)
CPT/HCPCS: J2060; J2270; J2405; Q9967

== ENCOUNTER 2021-10-27 18:37 | Observation (INO) | payer MEDICARE, OTHER ==
[~2021-10-27] VITALS: Ht 160 cm; Wt 63.6 kg
[~2021-10-27 18:37] MED LIST changes: +MIRALAX510G PO; +SENOKOT S 50 MG1 TAB PO
[2021-10-27 20:14] LABS: BASO # 0.1 K/mm3 (0.0-0.2); BASO % 0.8 % (0.0-2.0); EOS % 0.2 % (0.0-4.0); GRAN # 6.4 K/mm3 (1.4-6.5); GRAN % 77.7 % (42.2-75.2); HEMATOCRIT 38.9 % (37.0-47.0); HEMOGLOBIN 12.2 g/dl (12.5-16.0); LYMPH % 11.7 % (20.0-51.0); MEAN CELL VOLUME 82 fl (80.0-100.0); MEAN CORPUSCULAR HEMOGLOBIN 26 pg (27-31); MEAN CORPUSCULAR HGB CONC 31 g/dl (33.0-37.0); MEAN PLATELET VOLUME 11.2 fl (7.4-10.4); MONO # 0.7 K/mm3 (0.1-0.6); MONO % 8.9 % (1.7-9.3); PLATELET COUNT 279 K/mm3 (130-400); RED BLOOD COUNT 4.77 M/mm3 (4.10-5.30); REDCELL DISTRIBUTION WIDTH-CV 15.5 % (11.5-14.5)
[2021-10-27 20:36] LABS: ALBUMIN 3.7 gm/dL (3.4-4.8); BILIRUBIN,TOTAL 0.7 mg/dL (0.2-1.2); CALCIUM 9.8 mg/dL (8.4-10.2); CREATININE, serum 0.82 mg/dL (0.57-1.11); POTASSIUM 3.4 mmol/L (3.5-4.5); TOTAL PROTEIN 7.8 gm/dL (6.2-8.1)
[2021-10-28] VITALS (7 sets, daily range): BP systolic 121–184; BP diastolic 58–138; PULSE 70–96; TEMP 97.8–98.4
--- NOTE | 2021-10-28 01:54 | NUR ---
PT TRANSFERRED TO MEDICAL FLOOR FROM ED STAFF AT 0000 BY ED STAFF VIA PT PERSONAL WHEELCHAIR TO ROOM 311, PT PIVOTED FROM WC TO TOILET. PT REQUIRES SBA-1ASSITANCE. PT A/OX2,PLEASANTLY DISORIENTED AND CONFUSED. PT UNABLE TO STATE LOCATION, REASON FOR HOSPITALIZATION. 02 ROOM AIR, DIASTOLIC ELEVATED, ASSESMENT COMPLETE. STAGE 1 NOTED ON LL BACK, HEMMOROIDS NOTED, BLE DISCOLORED WITH HARDTACH EDEMA NOTED PITTING +1. LEFT KNEE NOTIBLY SWOLLEN. PT CHARACTERIZES WITH SEVERE FOWARD FLEXION OF THE THORACOLUMBAR SPINE. MED REC COMPLETED BY HOSPITALIST. PT POOR HISTORIAN, THIS NURSE WAS UNABLE TO SEE WHEN WAS LAST ADMINISTRATION OF MEDICATIONS. PT CHANGED TO YELLOW GOWN, YELLOW SOCKS. CONTACT PRECATUTIONS IN PLACE FOR VRE. BED ALARM ON. PT CLOSE TO NURSES STATION. CALL LIGHT WITHIN REACH.
[2021-10-28 06:07] LABS: BASO # 0.1 K/mm3 (0.0-0.2); BASO % 0.8 % (0.0-2.0); EOS # 0.2 K/mm3 (0.0-0.7); GRAN % 60.5 % (42.2-75.2); HEMOGLOBIN 10.8 g/dl (12.5-16.0); LYMPH # 1.5 K/mm3 (1.2-3.4); LYMPH % 22.3 % (20.0-51.0); MEAN CELL VOLUME 81 fl (80.0-100.0); MEAN CORPUSCULAR HEMOGLOBIN 25 pg (27-31); MEAN CORPUSCULAR HGB CONC 31 g/dl (33.0-37.0); MEAN PLATELET VOLUME 11.1 fl (7.4-10.4); MONO # 0.9 K/mm3 (0.1-0.6); MONO % 12.8 % (1.7-9.3); PLATELET COUNT 244 K/mm3 (130-400); RED BLOOD COUNT 4.27 M/mm3 (4.10-5.30); REDCELL DISTRIBUTION WIDTH-CV 15.6 % (11.5-14.5)
[2021-10-28 06:08] LABS: HEMATOCRIT 34.5 % (37.0-47.0)
--- NOTE | 2021-10-28 06:15 | NUR ---
PT BP ELEVATED, MEDICATION ADMINISTERED ORDERED. THIS NURSE WILL F/U.
[2021-10-28 06:19] LABS: CREATININE, serum 0.67 mg/dL (0.57-1.11); POTASSIUM 3.9 mmol/L (3.5-4.5)
--- NOTE | 2021-10-28 07:34 | NUR ---
ID CONSULT COMPLETED AT THIS TIME. DR. MILLER VERBALLY CONIFRMS VIA PHONE.
--- NOTE | 2021-10-28 08:00 | NUR ---
ENTERED PT ROOM, PT VERY LETHARGIC, NOT FOLLOWING COMMANDS OR ANSWERING ORIENTATION QUESTIONS, WOULD OPEN EYES UPON CALLING PT NAME, PT ATTACHED TO ANTIBIOTICS, PT ASSESSMENT PERFORMED, MEDICATIONS GIVEN AT LATER TIME, ASSISTED PREETI WILEY RN WITH DRESSING CHANGE ON PICC LINE. PT C/O PAIN BUT UNABLE TO VERBALIZE WHERE
--- NOTE | 2021-10-28 09:00 | NUR ---
Patient admitted with a PICC present in her right upper arm. Dressing dated 10/25/2021. Chlorhexidine impregnated disc was present. PICC dressing change done with sterile technique. Insertion site cleansed with ChloraPrep x1. Chlorhexidine impregnated disc applied. Skin-Prep, and Tegaderm applied. Both caps changed. Purple port very resistant to flush. Other port flushed with 10 mL normal saline with good blood return noted without difficulty or resistance. Advised primary care nurse to obtain order for Cathflo and instill in purple port. No other signs or symptoms of IV complications noted. Arm wrapped with Kishor to protect catheter.
--- NOTE | 2021-10-28 12:40 | NUR ---
OLENA, MRI CALLED NOTIFYING THAT LAST TIME PT WAS SCANNED SHE HAD TO BE SEDATED FOR IMAGING TO BE SUCCESSFUL, DR TOM CALLED, MRI HEAD CANCELED, STILL WANTS CT ABD, TRIAL MORPHINE ADMINISTRATION BEFORE TEST
--- NOTE | 2021-10-28 13:08 | NUR ---
RECIEVED CALL FROM CT STATING THEY WOULD BE UP TO GET HER IN 15-[address], TYLENOL GIVEN FOR STOMACH ACHE, NO OTHER NEEDS
--- NOTE | 2021-10-28 13:26 | NUR ---
CATH FLOW RECIEVED FROM PHARMACY, INJECTED INTO PURPLE PORT. PT GIVEN LYRICA, REASSESSED BP TO SEE IF HYDRALAZINE NEEDED, BP 164/86, NO HYDRALAZINE GIVEN. PT TAKEN DOWN FOR CT SCAN
--- NOTE | 2021-10-28 13:45 | NUR ---
PT RETURNED FROM CT, ASSISTED PT AND PT WITH MEAL VOUCHERS, NO OTHER NEEDS
--- NOTE | 2021-10-28 14:31 | NUR ---
REPORT FROM TELE OF 7 SEC RUN OF 170'S TACHYCARDIA, REPORTED TO YURIDIA TELLEZ, EKG ORDERED, RT NOTIFIED OF NEW ORDER
--- NOTE | 2021-10-28 16:02 | NUR ---
Lapping Machine Tender collaborated with Gilson at [facility] who advised patient discharged from their facility on 10/25/21 against their recommendation. Patient's PCP Dr. Dejesus felt that patient needed to stay however was not agreeable. Gilson advised a report was made to Adult Protective Services and would get SW the intake number. ELZA contacted [facility] who advised the report had not screen in yet or been assigned. ELZA received Advance Directives from [facility] and most recent DPOA-HC was signed on 06/02/2019 and designates patient's , Amos. ELZA met with patient and her Amos to discuss discharge planning. ELZA advised the recommendation would be to return to [facility] as patient was only home two days prior to readmiting to the hospital. Amos expressed frustration with this as he stated Dr. Dejesus is the one that sent them here for two more days of antibiotics. ELZA asked Amos if patient was taking her antibiotics as prescribed at home and he then asked what SW meant by that. Amos stated again that patient was sent to the hosptial for antibiotics. Patient is not agreeable to return to [facility] and does not understand why she would need to go back. ELZA again advised that she was only able to be at home two days before readmit to the hospital. Patient stated she's back in the hosptial because of her primary care doctor sending her back. ELZA asked patient if her plan is to return home and Amos stated he plans to take her to [place] or [place] to determine if she needs stitches. ELZA spoke with Hospitalist and advised of the above information. Guardianship may be needed for patient.
--- NOTE | 2021-10-28 17:34 | NUR ---
PT STATED "MY IS GOING HOME TO FEED THE CAT... CAN YOU GIVE ME A DOG? DO YOU HAVE DOG FOR ME" ASKED PT WHAT SHE MEANT "OH MY IS TAKING CARE OF IT DONT WORRY", PT ASKED "HOW LONG WILL IT TAKE TO GET TO [place]" EXPLAINED PT WAS IN THE HOSPITAL IN [place], PT STATED "OH I DIDN'T KNOW THAT". NEURO CHECK PERFORMED, DR. TOM NOTIFIED AND LACTIC ORDERED.
--- NOTE | 2021-10-28 18:42 | NUR ---
CATHFLO PULLED EARLIER, NOW GETTING GOOD BLOOD RETURN FROM PURPLE PORT, PT UP TO COMMODE MULTIPLE TIMES DURING SHIFT W/O STOOL OUTPUT, PT FEELING LIKE SHE IS HAVING DIARRHEA
[2021-10-28 19:04] LABS: LACTIC ACID 1.1 mmol/L (0.5-2.0)
[2021-10-29] VITALS (7 sets, daily range): BP systolic 120–182; BP diastolic 56–99; PULSE 71–87; TEMP 97.7–98.7
--- NOTE | 2021-10-29 02:44 | NUR ---
Received report from day shift. Patient here for VRE and diarrhea. Patient is alert and oriented to self. Assessment performed. PM meds administered. Patient had a soft pressure. Hospitalist ordered 500 bolus and BP returned to normal.
[2021-10-29 14:34] LABS: COLLECTION METHOD CLEAN CATCH
[2021-10-29 14:46] LABS: MUCOUS Present (NOT PRESENT); PH 7 (5-8); SQUAMOUS EPITHELIAL 0-2 /hpf (0-10); URINE APPEARANCE Clear (CLEAR/HAZY); URINE BACTERIA None Seen /hpf (NONE SEEN); URINE BILIRUBIN Negative (NEGATIVE); URINE BLOOD Negative (NEGATIVE); URINE COLOR Yellow (YELLOW); URINE GLUCOSE Negative (NEGATIVE); URINE KETONE Negative (NEGATIVE); URINE LEUKOCYTE ESTERASE Negative (NEGATIVE); URINE NITRATE Negative (NEGATIVE); URINE PROTEIN(semi-quant) 1+ (NEGATIVE); URINE UROBILINOGEN Negative (NEGATIVE)
--- NOTE | 2021-10-29 20:30 | NUR ---
Initial shift assessment done- confused, cooperative tonight,VSS, Up to BSC with assist- voiding madhuri urine- back to bed with one assist-- did take meds as ordered. PICC to [facility] [[email or web address] Tele on NSR.
[2021-10-30] VITALS (8 sets, daily range): BP systolic 112–197; BP diastolic 54–76; PULSE 69–110; TEMP 97.5–99.1
--- NOTE | 2021-10-30 05:26 | NUR ---
Overall a fairly quiet night-- Up to BSC every 2-3 hours to void- only nce had very small soft stool, IV fluids remain at 75cc/hr- remains confused but has been cooperative all night.
[2021-10-30 06:57] LABS: BASO # 0.1 K/mm3 (0.0-0.2); BASO % 1.2 % (0.0-2.0); EOS # 0.5 K/mm3 (0.0-0.7); EOS % 10.6 % (0.0-4.0); GRAN # 2.1 K/mm3 (1.4-6.5); GRAN % 49.1 % (42.2-75.2); LYMPH # 1.1 K/mm3 (1.2-3.4); LYMPH % 26.4 % (20.0-51.0); MEAN CELL VOLUME 84 fl (80.0-100.0); MEAN CORPUSCULAR HGB CONC 30 g/dl (33.0-37.0); MONO # 0.5 K/mm3 (0.1-0.6); MONO % 11.8 % (1.7-9.3); PLATELET COUNT 216 K/mm3 (130-400); RED BLOOD COUNT 3.58 M/mm3 (4.10-5.30); REDCELL DISTRIBUTION WIDTH-CV 15.9 % (11.5-14.5)
[2021-10-30 07:06] LABS: CALCIUM 7.9 mg/dL (8.4-10.2); PHOSPHOROUS 2.8 mg/dL (2.3-4.7)
[2021-10-30 07:07] LABS: HEMOGLOBIN 9.1 g/dl (12.5-16.0); MEAN CORPUSCULAR HEMOGLOBIN 25 pg (27-31)
[2021-10-30 08:01] LABS: ALBUMIN 2.4 gm/dL (3.4-4.8); CREATININE, serum 0.66 mg/dL (0.57-1.11); MAGNESIUM 1.6 mg/dL (1.6-2.6)
--- NOTE | 2021-10-30 08:20 | NUR ---
PT PLEASANT AOX3, UNABLE TO TELL ME LOCATION AND CONVERSATION IS CONFUSED, PT REPORTS PAIN 7/10 IN BACK, LIDOCAINE PATCH APPLIED, ALL MEDICATIONS GIVEN, REPORTED PT HAS HEMMRHOIDS, APPEARS LIKE A RECTAL PROLAPSE, PHYSICIAN TO BE NOTIFIED DURING ROUNDS, PT HAD 2 HEALED ULCERS ON COCCYX, COCCYX RED BUT BLANCHABLE, BLE RED AND EDEMETOUS, PT STANDBY ASSIST TO COMMODE, HAVING LOOSE FORMED STOOL BUT NOT DIARRHEA. VITALS TAKEN, BP ELEVATED SO HYDRALAZINE GIVEN
--- NOTE | 2021-10-30 14:34 | NUR ---
Per Gilson at [facility], they would be willing to take this patient back under the condition of her completing a new DPOA-HC listing someone other then her and she has to be willing to apply for MARILEE. Gilson reports that she will likely end up LTC there but both she and her refused to complete a MARILEE to secure a payer source.
--- NOTE | 2021-10-30 16:22 | NUR ---
PT REPORTING DIARRHEA ALL DAY, WHEN PT UP TO COMMODE SHE DOES NOT HAVE STOOL, IF SHE DOES IT IS VERY LITTLE. IMMODIUM GIVEN, PT REPORTING BURNING AND PAIN AT RECTUM. DR TOM NOTIFIED AND GAVE VERBAL ORDER FOR LIDOCAINE JELLY. FAMILY SUPPORT SPECIALIST NOTIFIED TO BRING MEDICATION
--- NOTE | 2021-10-30 18:13 | NUR ---
PT ON COMMODE MOST OF SHIFT TRANSFERRING VIA STANDBY ASSIST, PT THINKING SHE HAS BM BUT NO BM HAS OCCURED, LIDOCAINE JELLY APPLIED TO RECTAL PROLAPSE
--- NOTE | 2021-10-31 01:00 | NUR ---
Report received from day shift nurse. Patient here due to AMS, positive VRE and increased urination. Full body assessment completed and vitals signs are WNL. Patient is oriented to self and place but is not sure of the year. Patient is pleasant but does get confused as to why she is here, who staff are and her relationships with family members. Patient has been on the phone periodically with family members. Patient has also been on and off the commode throughout the shift due to prolapsed rectum. She has had very few stools, which have been loose. Patient has had an uneventful night thus far an is currently sitting at the edge of bed on the phone. Patient denies having pain, no other complaints at this time. Call light within reach.
[2021-10-31 03:25] VITALS: BP 149/71; PULSE 80; TEMP 98.6
[2021-10-31 06:37] LABS: BASO % 0.7 % (0.0-2.0); EOS # 0.6 K/mm3 (0.0-0.7); EOS % 10.5 % (0.0-4.0); GRAN # 3.4 K/mm3 (1.4-6.5); GRAN % 57.3 % (42.2-75.2); LYMPH # 1.2 K/mm3 (1.2-3.4); LYMPH % 19.9 % (20.0-51.0); MEAN CELL VOLUME 81 fl (80.0-100.0); MEAN CORPUSCULAR HGB CONC 31 g/dl (33.0-37.0); MEAN PLATELET VOLUME 11.3 fl (7.4-10.4); MONO # 0.7 K/mm3 (0.1-0.6); MONO % 10.9 % (1.7-9.3); PLATELET COUNT 237 K/mm3 (130-400); RED BLOOD COUNT 3.75 M/mm3 (4.10-5.30); REDCELL DISTRIBUTION WIDTH-CV 16.1 % (11.5-14.5)
[2021-10-31 06:47] LABS: HEMATOCRIT 30.3 % (37.0-47.0); HEMOGLOBIN 9.5 g/dl (12.5-16.0); MEAN CORPUSCULAR HEMOGLOBIN 25 pg (27-31)
[2021-10-31 07:00] LABS: ALBUMIN 2.6 gm/dL (3.4-4.8); CALCIUM 8.2 mg/dL (8.4-10.2); CREATININE, serum 0.74 mg/dL (0.57-1.11); MAGNESIUM 1.5 mg/dL (1.6-2.6); PHOSPHOROUS 2.7 mg/dL (2.3-4.7); POTASSIUM 3.6 mmol/L (3.5-4.5)
--- NOTE | 2021-10-31 07:28 | NUR ---
NOTIFIED DR. HANEY OF CONSULT FOR PT'S RECTAL PROLAPSE.
[2021-10-31 08:45] VITALS: BP 170/55; PULSE 77; TEMP 98.3
[2021-10-31 11:58] VITALS: BP 177/79; PULSE 73; TEMP 98.5
--- NOTE | 2021-10-31 12:52 | NUR ---
PT ALERT UPON ENTRY. ANSWERS QUESTIONS APPROPRIATELY BUT STILL MAKES CONFUSING STATEMENTS AT TIMES. COOPERATIVE AND CALM. SHIFT ASSESSMENT COMPLETED. MORNING MEDICATIONS ADMINSTERED AND EDUCATION PROVIDED. PT DENIES PAIN. GOOD APPETITE. UP TO BATHROOM. CONTINUES TO FEEL LIKE SHE NEEDS TO HAVE A BOWEL MOVEMENT, BUT DOES NOT GO. VITAL SIGNS AND BLOOD SUGARS STABLE. WILL CONTINUE TO MONITOR.
[2021-10-31 16:00] VITALS: BP 135/84; PULSE 76; TEMP 98.2
--- NOTE | 2021-10-31 16:15 | NUR ---
Reliability Technologist attended clinical rounds with the team and Hospitalist spoke with patient about placement at [facility]. Patient is agreeable. ELZA followed up and advised patient that in order for her to return to [facility], the facility will require her to apply for Medicaid and update her DPOA-HC to include an alternate agent. Patient states she wants to talk to her , Amos about this. ELZA followed up once Amos arrived and explained the above update again. Patient states she wants time to talk with Amos and does not want to discuss this right now. Amos does verbalize that he is agreeable to have patient go to [facility]. SW followed up a third time and patient states she is agreeable to do the Medicaid application but wants to speak with her sons before she does the DPOA-HC. ELZA again advised patient that plan is to discharge tomorrow to [facility] and this needs to be completed. ELZA contacted [facility] Financial Counselor who will try to see patient this afternoon. ELZA attempted to follow up with patient again, however she was on the commode. RN reported that patient's was very upset after patient had a bowel movement and needed help cleaning up. ELZA contacted patient's son, Gutierrez and provided the above update. Gutierrez verbalized understanding and stated he will speak with his parents about this. Gutierrez is very much in agreement with discharge plan of [facility].
--- NOTE | 2021-10-31 19:40 | NUR ---
PT HAD UNPRODUCTIVE DAY. ALERT AND ORIENTED TO PERSON AND PLACE. CONTINUES TO HAVE CONFUSING CONVERSATIONS AND FORGETS LIMITATIONS. PT GETS OOB WITHOUT ASSISTANCE. ADEQUATE INTAKE AND OUTPUT TODAY. COOPERATIVE AND CALM. VITAL SIGNS AND BLOOD SUGARS STABLE. PT REPORTS NO QUESTIONS AT THIS TIME. NO CONCERNS AT THIS TIME.
[2021-10-31 20:30] VITALS: BP 154/68; PULSE 72; TEMP 97.7
[2021-10-31 23:32] VITALS: BP 136/113; PULSE 75; TEMP 98.4
[2021-11-01 04:19] VITALS: BP 135/43; PULSE 75; TEMP 97.9
[2021-11-01 06:40] LABS: BASO # 0.1 K/mm3 (0.0-0.2); BASO % 0.9 % (0.0-2.0); EOS # 1.1 K/mm3 (0.0-0.7); EOS % 13.2 % (0.0-4.0); GRAN # 4.2 K/mm3 (1.4-6.5); GRAN % 52.1 % (42.2-75.2); HEMOGLOBIN 11.4 g/dl (12.5-16.0); LYMPH % 24.6 % (20.0-51.0); MEAN CELL VOLUME 83 fl (80.0-100.0); MEAN CORPUSCULAR HEMOGLOBIN 26 pg (27-31); MEAN CORPUSCULAR HGB CONC 31 g/dl (33.0-37.0); MEAN PLATELET VOLUME 11.9 fl (7.4-10.4); MONO # 0.7 K/mm3 (0.1-0.6); MONO % 8.6 % (1.7-9.3); PLATELET COUNT 289 K/mm3 (130-400); RED BLOOD COUNT 4.44 M/mm3 (4.10-5.30); REDCELL DISTRIBUTION WIDTH-CV 16.2 % (11.5-14.5)
[2021-11-01 06:44] LABS: HEMATOCRIT 36.7 % (37.0-47.0)
[2021-11-01 07:07] LABS: ALBUMIN 3.2 gm/dL (3.4-4.8); CALCIUM 9.3 mg/dL (8.4-10.2); CREATININE, serum 0.78 mg/dL (0.57-1.11); MAGNESIUM 1.8 mg/dL (1.6-2.6); PHOSPHOROUS 3.1 mg/dL (2.3-4.7); POTASSIUM 4.1 mmol/L (3.5-4.5)
[2021-11-01 08:04] VITALS: BP 147/67; PULSE 77; TEMP 98.7
[2021-11-01] MEDS ORDERED: ROCEPHIN VIA1 G/VIAL IV (09:25)
[2021-11-01] MEDS ORDERED: GLUCOPHAGE XR500 M1 PO (09:26)
[2021-11-01] MEDS ORDERED: ZYVOX 600MG600 MG PO (09:26)
[2021-11-01] MEDS ORDERED: SYNTHROID0.137 MG PO (09:26)
[2021-11-01] MEDS ORDERED: DITROPAN XL 5MG5 M1 PO (09:26)
[2021-11-01] MEDS ORDERED: NEXIUM 40MG40 MG PO (09:27)
[2021-11-01] MEDS ORDERED: ZOFRAN ODT4 MG PO (09:27)
[2021-11-01] MEDS ORDERED: PROBIOTIC ACID1 EAC3 PO (09:27)
[2021-11-01] MEDS ORDERED: IMODIUM 2MG CAPS2 MG PO (09:28)
[2021-11-01] MEDS ORDERED: LYRICA 75MG CAP75 MG PO (09:30)
[2021-11-01] MEDS ORDERED: CYMBALTA 60MG60 MG PO (09:30)
[2021-11-01] MEDS ORDERED: TYLENOL 325MG325 MG PO (09:31)
[2021-11-01] MEDS ORDERED: LIPITOR 40MG TA40 MG PO (09:31)
[2021-11-01] MEDS ORDERED: DEPAKOTE ER 50500 MG PO (09:31)
[2021-11-01] MEDS ORDERED: ASPIRIN E.C. 8181 MG PO (09:31)
--- NOTE | 2021-11-01 10:30 | NUR ---
Scheduled medications given. Shift assessment performed. VSS. Patient A&O. Skin issues noted in shift assessment. Patient states that she is having aching back pain. Lidocaine patch placed. Patient denies any further pain, discomfort, SOA, or further needs at this time. Call light in reach. Fall percautions in place.
[2021-11-01 11:14] VITALS: BP 135/66; PULSE 68; TEMP 97.5
[2021-11-01 15:12] VITALS: BP 135/66; PULSE 68; TEMP 97.5
--- NOTE | 2021-11-01 16:11 | NUR ---
Patient deemed fit for discharge to [facility]. VSS. Patient A&O. Patient states that her pain is at a manageable level at this time. Patient denies any further pain, discomfort, SOA, or further needs at this time. Patient escorted from the building via wheelchair by [facility] staff. Report given to DENNYS Foster.
--- NOTE | 2021-11-01 16:19 | NUR ---
Mechanical Developer Prover attended clinical rounds with the team and patient is agreeable to both completing the Medicaid Application and completing a new DPOA-HC. ELZA assisted patient in completing DPOA-HC which designated both her Amos and son Gutierrez. ELZA and RN-SANTY provided witness signature. ELZA provided original and copies to patient then placed a copy on patient's chart. ELZA faxed clinical updates to Gilson at [facility]. Gilson advised they can accept patient today. Riley, Financial Counselor met with patient to complete Medicaid application. ELZA advised Gilson at [facility] that proof of completion would be sent ERICA. ELZA faxed negative covid results and discharge orders to Keeler at [facility]. ELZA notified Adult Protective Services that patient to discharge to [facility] today. Discharge Plan: [facility] LTC
== END 2021-11-01 16:14 ==
LOC: COL.ER 18:37 → MEDICAL 22:20
PROVIDERS: Internal Medicine; Nurse Practitioner Family; Student in an Organized Health Care Education/Training Program; ADMIT Student in an Organized Health Care Education/Training Program
DX: N39.0 Urinary tract infection, site not specified (principal); I33.0 Acute and subacute infective endocarditis; E83.42 Hypomagnesemia; K62.3 Rectal prolapse; E78.5 Hyperlipidemia, unspecified; I25.10 Atherosclerotic heart disease of native coronary artery without angina pectoris; E87.6 Hypokalemia; E03.9 Hypothyroidism, unspecified; R56.9 Unspecified convulsions; E11.40 Type 2 diabetes mellitus with diabetic neuropathy, unspecified; G31.84 Mild cognitive impairment of uncertain or unknown etiology; D64.9 Anemia, unspecified; G89.29 Other chronic pain; I11.9 Hypertensive heart disease without heart failure; J45.909 Unspecified asthma, uncomplicated; G93.41 Metabolic encephalopathy; M48.50XA Collapsed vertebra, not elsewhere classified, site unspecified, initial encounter for fracture; A09 Infectious gastroenteritis and colitis, unspecified; Z79.2 Long term (current) use of antibiotics; Z79.899 Other long term (current) drug therapy; Z86.73 Personal history of transient ischemic attack (TIA), and cerebral infarction without residual deficits; Z16.21 Resistance to vancomycin; Z79.84 Long term (current) use of oral hypoglycemic drugs; Z79.82 Long term (current) use of aspirin; Z20.822 Contact with and (suspected) exposure to COVID-19; Z79.890 Hormone replacement therapy; Z79.4 Long term (current) use of insulin
CPT/HCPCS: 99232-AI; 99233-AI; G0378; J0360; J0696; J1650; J2020; J2270; J2997; J3475; J3480; J7030; J7040; Q9967

== ENCOUNTER → 2021-11-17 | Outpatient (CLI) | payer MEDICARE, OTHER ==
[~2021-11-17] MED LIST changes: +IMODIUM 2MG CAPS2 MG PO; +PROBIOTIC ACID1 EAC3 PO; +ZYVOX 600MG600 MG PO
[2021-11-17 13:56] LABS: ALANINE AMINOTRANSFERASE 7 U/L (0-55); ALKALINE PHOSPHATASE 68 U/L (40-150); ANION GAP 9 mmol/L (7-16); AST,SGOT 16 U/L (5-34); BILIRUBIN,TOTAL 0.3 mg/dL (0.2-1.2); BLOOD UREA NITROGEN 18 mg/dL (10-20); CALCIUM 8.9 mg/dL (8.4-10.2); CARBON DIOXIDE 31 mmol/L (23-31); CHLORIDE 104 mmol/L (98-107); CREATININE, serum 0.64 mg/dL (0.57-1.11); GLUCOSE 96 mg/dL (70-99); POTASSIUM 4.6 mmol/L (3.5-4.5); SODIUM 144 mmol/L (136-145); THYROID STIMULATING HORMONE 0.207 uIU/mL (0.350-4.940); TOTAL PROTEIN 5.8 gm/dL (6.2-8.1)
[2021-11-17 14:01] LABS: BASO # 0.1 K/mm3 (0.0-0.2); BASO % 1.2 % (0.0-2.0); EOS # 0.6 K/mm3 (0.0-0.7); EOS % 12.7 % (0.0-4.0); ERYTHROCYTE SEDIMENTATION RATE 6 mm/hr (0-30); GRAN # 2.2 K/mm3 (1.4-6.5); GRAN % 45.3 % (42.2-75.2); HEMATOCRIT 34.6 % (37.0-47.0); HEMOGLOBIN 10.4 g/dl (12.5-16.0); LYMPH # 1.4 K/mm3 (1.2-3.4); LYMPH % 28.7 % (20.0-51.0); MEAN CELL VOLUME 84 fl (80.0-100.0); MEAN CORPUSCULAR HEMOGLOBIN 25 pg (27-31); MEAN CORPUSCULAR HGB CONC 30 g/dl (33.0-37.0); MEAN PLATELET VOLUME 11.4 fl (7.4-10.4); MONO # 0.6 K/mm3 (0.1-0.6); MONO % 11.5 % (1.7-9.3); PLATELET COUNT 242 K/mm3 (130-400); RED BLOOD COUNT 4.14 M/mm3 (4.10-5.30); REDCELL DISTRIBUTION WIDTH-CV 17.2 % (11.5-14.5)
[2021-11-17 14:14] LABS: PHENYTOIN (DILANTIN) < 1.8 ug/mL (10.0-20.0)
== END ==
LOC: ZLAB.STJ 13:44
PROVIDERS: Internal Medicine
DX: I33.0 Acute and subacute infective endocarditis (principal); E11.9 Type 2 diabetes mellitus without complications; E55.9 Vitamin D deficiency, unspecified; G40.509 Epileptic seizures related to external causes, not intractable, without status epilepticus; E03.9 Hypothyroidism, unspecified

== ENCOUNTER → 2021-11-25 | Outpatient (CLI) | payer MEDICARE, OTHER ==
[~2021-11-25] MED LIST changes: +NORVASC2.5 MG PO; +VITAMIN D31000 I1 PO
[2021-11-25 18:10] LABS: CALCIUM 8.7 mg/dL (8.4-10.2); CREATININE, serum 0.74 mg/dL (0.57-1.11); POTASSIUM 4.2 mmol/L (3.5-4.5); VALPROIC ACID (DEPAKENE) 52.1 ug/mL (43.5-90.5)
== END ==
LOC: ZLAB.STJ 17:46
PROVIDERS: Internal Medicine
DX: D64.9 Anemia, unspecified (principal); R56.9 Unspecified convulsions

== ENCOUNTER → 2021-12-02 | Outpatient (CLI) | payer MEDICARE, OTHER | LOC: ZLAB.STJ 11:53 | DX: Z01.89 Encounter for other specified special examinations (principal) ==

== ENCOUNTER → 2021-12-06 | Outpatient (CLI) | payer MEDICARE, OTHER ==
[2021-12-06] VITALS (14 sets, daily range): BP systolic 97–157; BP diastolic 49–99; PULSE 74–89; TEMP 98.9
[~2021-12-06] VITALS: Ht 160 cm; Wt 62.0 kg
[2021-12-06 08:39] LABS: BASO # 0.1 K/mm3 (0.0-0.2); BASO % 1.1 % (0.0-2.0); EOS # 0.2 K/mm3 (0.0-0.7); EOS % 5.1 % (0.0-4.0); GRAN # 2.6 K/mm3 (1.4-6.5); GRAN % 57.7 % (42.2-75.2); HEMATOCRIT 32.6 % (37.0-47.0); HEMOGLOBIN 10.1 g/dl (12.5-16.0); LYMPH # 1.1 K/mm3 (1.2-3.4); LYMPH % 23.6 % (20.0-51.0); MEAN CELL VOLUME 80 fl (80.0-100.0); MEAN CORPUSCULAR HEMOGLOBIN 25 pg (27-31); MEAN CORPUSCULAR HGB CONC 31 g/dl (33.0-37.0); MEAN PLATELET VOLUME 10.6 fl (7.4-10.4); MONO # 0.6 K/mm3 (0.1-0.6); MONO % 12.1 % (1.7-9.3); PLATELET COUNT 216 K/mm3 (130-400); RED BLOOD COUNT 4.06 M/mm3 (4.10-5.30); REDCELL DISTRIBUTION WIDTH-CV 16.6 % (11.5-14.5)
[2021-12-06 08:42] LABS: INR 1.1 (0.8-3.0); PROTHROMBIN TIME 11.8 SECONDS (9.7-12.8)
[2021-12-06 08:48] LABS: CALCIUM 8.5 mg/dL (8.4-10.2); CREATININE, serum 0.67 mg/dL (0.57-1.11); POTASSIUM 3.6 mmol/L (3.5-4.5)
--- NOTE | 2021-12-06 11:27 | NUR ---
Pt remains very drowsy. She wakes to loud voice, states she feels good and quickly falls back to sleep. O2 was applied by NC due to occasional desaturation to 86-88% while sleeping. Episodes are short but frequent. Pt able to maintain sats in mid to high 90s on 2 L/min. After rousing and speaking with pt, she is provided sip of soda and is able to swallow without issue. Call light in reach. Will continue to monitor.
--- NOTE | 2021-12-06 11:35 | NUR ---
Dr Rascon was notified that oxygen was applied to pt because she remains very drowsy with episodes of desaturation. He gives instructions to keep SaO2 over 90% and continue to monior until she is ready to discharge.
--- NOTE | 2021-12-06 13:00 | NUR ---
Dr Rascon's nurse Lana Quinn RN notified that pt remains very drowsy and is still sleeping following anesthesia. No further orders given at this time. Will continue to monitor pt.
--- NOTE | 2021-12-06 14:20 | NUR ---
Pt repositioned in bed and becomes more alert. She asks to use restroom. Assisted onto bedside commode with x1 assist. Meal tray ordered.
--- NOTE | 2021-12-06 16:05 | NUR ---
Phone report given to nurse Adkins at [facility]. She will have their transport come to brick picker pt. DC instructions reviewed with pt, she expresses understanding. INT DC'd with catheter intact and site wrapped with coban. She is assisted to commode again prior to departing. She is now fully awake. Was able to eat full meal tray without difficulty. She transfers with standby assist.
--- NOTE | 2021-12-06 16:15 | NUR ---
Pt assisted out by wheelchair to meet [facility] transport staff member. She has DC packet and personal belongings.
--- NOTE | 2021-12-06 16:47 | NUR ---
Lana Quinn RN, Dr Rascon's nurse notified that pt remains very drowsy following anesthesia. No further orders given at this time. Will continue to monitor pt until she is alert enough to discharge back to [facility].
== END ==
LOC: COL.RAD 11-18 09:00
PROVIDERS: Internal Medicine Cardiovascular Disease
DX: I33.0 Acute and subacute infective endocarditis (principal)
CPT/HCPCS: J2704

== ENCOUNTER 2022-04-25 19:20 | Emergency (ER) | payer MEDICARE, OTHER ==
[~2022-04-25] VITALS: Ht 160 cm; Wt 56.4 kg
[2022-04-25 19:28] VITALS: TEMP 98.2
[2022-04-25 20:05] LABS: BASO # 0.1 K/mm3 (0.0-0.2); BASO % 1.3 % (0.0-2.0); EOS # 0.2 K/mm3 (0.0-0.7); EOS % 3.8 % (0.0-4.0); GRAN # 2.5 K/mm3 (1.4-6.5); GRAN % 52.8 % (42.2-75.2); HEMOGLOBIN 10.8 g/dl (12.5-16.0); LYMPH # 1.5 K/mm3 (1.2-3.4); LYMPH % 32.1 % (20.0-51.0); MEAN CELL VOLUME 84 fl (80.0-100.0); MEAN CORPUSCULAR HEMOGLOBIN 27 pg (27-31); MEAN CORPUSCULAR HGB CONC 32 g/dl (33.0-37.0); MEAN PLATELET VOLUME 10.8 fl (7.4-10.4); MONO # 0.5 K/mm3 (0.1-0.6); MONO % 9.6 % (1.7-9.3); PLATELET COUNT 154 K/mm3 (130-400); RED BLOOD COUNT 4.04 M/mm3 (4.10-5.30); REDCELL DISTRIBUTION WIDTH-CV 18.6 % (11.5-14.5)
[2022-04-25 20:21] LABS: ALBUMIN 3.3 gm/dL (3.4-4.8); BILIRUBIN,TOTAL 0.3 mg/dL (0.2-1.2); CREATININE, serum 0.79 mg/dL (0.57-1.11); POTASSIUM 3.8 mmol/L (3.5-4.5); TOTAL PROTEIN 6.4 gm/dL (6.2-8.1)
[2022-04-25 20:28] LABS: TROPONIN-I 0.013 ng/mL (0.00-0.033)
[2022-04-25 21:58] VITALS: BP 144/77; PULSE 71
== END 2022-04-25 21:58 | disposition home or self-care (01) ==
LOC: COL.ER 19:20
PROVIDERS: Nurse Practitioner Primary Care
DX: I87.8 Other specified disorders of veins (principal); R79.1 Abnormal coagulation profile
CPT/HCPCS: Q9967

== ENCOUNTER 2024-03-30 21:11 | Inpatient (IN) | payer MEDICARE, OTHER ==
[~2024-03-30] VITALS: Ht 165.1 cm; Wt 77.3 kg
[2024-03-30] MEDS ORDERED: NAMENDA XR 28MG PO (21:58)
[2024-03-30] MEDS ORDERED: NS 500 ML IV ONE ×3 (22:00→23:45)
[2024-03-30 22:10] LABS: BASO # 0.1 K/mm3 (0.0-0.2); BASO % 0.5 % (0.0-2.0); EOS % 0.1 % (0.0-4.0); GRAN % 86.6 % (42.2-75.2); HEMATOCRIT 41.8 % (37.0-47.0); HEMOGLOBIN 13.3 g/dl (12.5-16.0); LYMPH # 0.9 K/mm3 (1.2-3.4); LYMPH % 7.3 % (20.0-51.0); MEAN CELL VOLUME 93 fl (80.0-100.0); MEAN CORPUSCULAR HEMOGLOBIN 30 pg (27-31); MEAN CORPUSCULAR HGB CONC 32 g/dl (33.0-37.0); MEAN PLATELET VOLUME 11.8 fl (7.4-10.4); MONO # 0.7 K/mm3 (0.1-0.6); MONO % 5.1 % (1.7-9.3); PLATELET COUNT 154 K/mm3 (130-400); RED BLOOD COUNT 4.51 M/mm3 (4.10-5.30); REDCELL DISTRIBUTION WIDTH-CV 14.6 % (11.5-14.5)
[2024-03-30 22:24] LABS: ALBUMIN 2.8 g/dL (3.4-4.8); BILIRUBIN,TOTAL 0.5 mg/dL (0.2-1.2); CALCIUM 8.7 mg/dL (8.4-10.2); CREATININE, serum 1.69 mg/dL (0.57-1.11); POTASSIUM 4.6 mEq/L (3.5-4.5); TOTAL PROTEIN 6.3 g/dl (6.2-8.1)
[2024-03-30 22:28] LABS: COLLECTION METHOD CATHETER
[2024-03-30 22:30] LABS: TROPONIN-I 0.031 ng/mL (0.00-0.033)
[2024-03-30 22:46] LABS: URINE APPEARANCE CLOUDY (CLEAR/HAZY); URINE BLOOD NEGATIVE (NEGATIVE); URINE COLOR Dark Yellow (YELLOW); URINE GLUCOSE NEGATIVE (NEGATIVE); URINE KETONE TRACE (NEGATIVE); URINE NITRATE NEGATIVE (NEGATIVE); URINE PROTEIN(semi-quant) TRACE (NEGATIVE)
[2024-03-30 23:00] LABS: URINE WBC 0-2 /hpf (0-2)
[2024-03-30 23:01] LABS: AMORPHOUS CRYSTAL PRESENT (NOT PRESENT); MUCOUS PRESENT (NOT PRESENT); URINE BACTERIA MANY /hpf (NONE SEEN)
[2024-03-30] MEDS ORDERED: BENICAR 20MG TA20 MG PO (23:03)
[2024-03-30] MEDS ORDERED: LYRICA 100MG C100 M1 PO ×2 (23:04→23:05)
[2024-03-30] MEDS ORDERED: DESYREL 50MG50 MG PO (23:10)
[2024-03-30 23:12] LABS: URINE RBC NONE SEEN /hpf (0-2)
[2024-03-30] MEDS ORDERED: Azithromycin 500 MG in NS 250 ML IV ONE (23:45)
[2024-03-30] MEDS ORDERED: cefTRIAXone 1 G in Water For Injection,Sterile 10 ML IV ONE (23:45)
[2024-03-31] VITALS (265 sets, daily range): BP systolic 101–126; BP diastolic 51–78; PULSE 67–78; TEMP 97.7–98.5; O2SAT 85–100
[2024-03-31] MEDS ORDERED: PROTONIX20 MG PO (00:10)
[2024-03-31] MEDS ORDERED: NORVASC 10MG10 MG PO (00:10)
[2024-03-31] MEDS ORDERED: SYNTHROID0.112 MG/T PO (00:10)
[2024-03-31] MEDS ORDERED: FERROUSAL325 MG PO (00:11)
[2024-03-31] MEDS ORDERED: NS 1,000 ML IV SCH ×2 (00:45→02:00)
--- NOTE | 2024-03-31 01:00 | NUR ---
PT ARRIVED VIA A STRETCHER FROM THE ED. HER SON HAD GONE HOME JUST PRIOR. THE PATIENT WAS MOVED OVER TO THE BED. SHE HAS HER EYES CLOSED, BUT SHE DOES ANSWER QUESTIONS APPROPRIATLEY. SHE IS ON 5L NC. SHE IS WEARING A BRIEF AND IT IS DRY. SHE HAS A SMALL DIMED SIZED WOUND ON THE POSTERIOR RIGHT MCNEILL. SHE HAS 2 IV'S, ONE IS INFUSING A NS BOLUS. SHE DOES COMPLAIN OF SOME CHRONIC BACK PAIN WHEN SHE IS ROLLED OVER. HER BOTTOM IS PURPLE/RED AND SLOW TO FRITZ. PER THE PATIENT SHE DOES NOT GET OUT OF THE BED.
[2024-03-31] MEDS ORDERED: Albuterol/Ipratropium 3 MG-0.5 MG/3 ML Neb Soln IH PRN (01:15)
[2024-03-31] MEDS ORDERED: Albuterol/Ipratropium 3 MG-0.5 MG/3 ML Neb Soln IH SCH (02:00)
[2024-03-31 02:07] LABS: VALPROIC ACID (DEPAKENE) 40.9 ug/mL (43.5-90.5)
[2024-03-31 03:04] LABS: TSH w REFLEX 2.839 uIU/mL (0.350-4.940)
--- NOTE | 2024-03-31 07:00 | NUR ---
Report received from DENNYS Dior; patient currently resting in bed with NS running through her peripheral line. Patient has another peripheral INT and a [place] catheter in place; patient is on 4L oxygen via NC. No other lines or tubes are in place at this time. Vital signs are within normal limits this morning.
[2024-03-31] MEDS ORDERED: Ferrous Sulfate 325 MG TAB PO SCH (08:00)
[2024-03-31] MEDS ORDERED: [UNRECOGNIZED DRUG - REMARK] PO SCH (09:00)
[2024-03-31] MEDS ORDERED: Memantine 10 MG TAB PO SCH (09:00)
[2024-03-31] MEDS ORDERED: DULoxetine 60 MG CAP PO SCH (09:00)
--- NOTE | 2024-03-31 10:14 | NUR ---
alley worker met with patient to discuss discharge planning. Patient lives in [place] alone with her , Amos, P# [phone]. Patient reports Gutierrez (son) P# [phone] and her two cousins assist them with anything they need. SW asked what they help with, patient stated with anything she needs. SW asked for examples, patient gets assistance with cooking, cleaning and transportation to and from appointments. PCP is Dr. Lisa, Pharmacy is [facility]. Insurance is Medicare A and B and [facility]. SW notes there is a DPOA-HC on EMR appointing Amos as primary and Gutierrez as secondary. Patient reports Amos is currently at [facility] for rehab. SW discussed DME, patient reports she is not normally on oxygen but she has a walker, bedside commode and shower chair. SW again discussed ADLS at home. Patient confirmed normally she has been able to dress herself, bathe herself and go to the bedside commode on her own. SW asked if Gutierrez or her cousins ever have to assist her with bathing or using the restroom. Patient stated no she does this on her own. SW explained PT and OT will evaluate her and determine if she needs rehab, social work faculty member asked if patient does need rehab if she would like a referral to the facility her is currently at and patient stated yes. SW notified patient's nurse patient needs PT and OT orders. ELZA attended interdisciplinary clinical rounding with Dr. Ryan. Dr. Ryan is going to order ST, PT and OT to determine needs for rehab. Discharge plan: TBD PT and OT pending
[2024-03-31] MEDS ORDERED: MORPHINE (10:36)
[2024-03-31] MEDS ORDERED: Dextrose 50% Water 25 GM/50 ML SYRINGE IV PRN (10:45)
[2024-03-31] MEDS ORDERED: Glucagon 1 MG VIAL IM PRN (10:45)
[2024-03-31] MEDS ORDERED: Dextrose (Glucose) 15 GM (4 x 3.75 GM) Chewable TABLET PACK PO PRN (10:45)
[2024-03-31] MEDS ORDERED: Insulin Lispro (HumaLOG) SQ SCH (12:00)
--- NOTE | 2024-03-31 15:30 | NUR ---
Pt arrived to medical floor from ICU by wheelchair. Shift assessment completed. IVF infusing into Lt forearm with no complications. Oriented pt to room, call light, and bathroom. Contact precautions in place per protocol. Pt has no request at this time. Call light within reach.
--- NOTE | 2024-03-31 15:40 | NUR ---
vegetable farmworker was notified by PT and OT that they would recommend SNF for patient. SW contacted Gutierrez and explained PT was recommending SNF and wanted to see if he would be okay with a referral to [facility] as patient's was transferred there last week. ELZA explained she had discussed this earlier with patient in case she needed rehab and she wanted to go to [facility] to be with her . Gutierrez stated he would be okay with that referral. ELZA secure emailed referral to [facility]. Discharge plan: SNF
--- NOTE | 2024-03-31 15:43 | NUR ---
Called patient's son Gutierrez to inform him that [facility] was moving upstairs to the medical floor, room 316.
[2024-03-31] MEDS ORDERED: Azithromycin 250 MG TAB PO SCH (21:00)
[2024-03-31] MEDS ORDERED: Atorvastatin 40 MG TAB PO SCH (21:00)
[2024-03-31] MEDS ORDERED: cefTRIAXone 1 G in Water For Injection,Sterile 10 ML IV SCH (22:00)
[2024-04-01] VITALS (7 sets, daily range): BP systolic 96–154; BP diastolic 43–106; PULSE 69–99; TEMP 97.7–98.7
[2024-04-01] MEDS ORDERED: Acetaminophen 325 MG TAB PO PRN (02:15)
--- NOTE | 2024-04-01 07:27 | NUR ---
Bedside report received from DENNYS Omer. Pt awake in bed with no complaints. Call light within reach and fall precautions in place.
[2024-04-01 07:35] LABS: BASO % 0.5 % (0.0-2.0); EOS # 0.4 K/mm3 (0.0-0.7); EOS % 5.9 % (0.0-4.0); GRAN % 75.4 % (42.2-75.2); HEMOGLOBIN 11.6 g/dl (12.5-16.0); LYMPH # 0.8 K/mm3 (1.2-3.4); LYMPH % 11.7 % (20.0-51.0); MEAN CELL VOLUME 93 fl (80.0-100.0); MEAN CORPUSCULAR HEMOGLOBIN 30 pg (27-31); MEAN CORPUSCULAR HGB CONC 32 g/dl (33.0-37.0); MONO # 0.3 K/mm3 (0.1-0.6); MONO % 5.1 % (1.7-9.3); PLATELET COUNT 124 K/mm3 (130-400); RED BLOOD COUNT 3.93 M/mm3 (4.10-5.30); REDCELL DISTRIBUTION WIDTH-CV 14.6 % (11.5-14.5)
[2024-04-01 07:36] LABS: HEMATOCRIT 36.7 % (37.0-47.0)
[2024-04-01 07:48] LABS: CALCIUM 7.7 mg/dL (8.4-10.2); CREATININE, serum 0.64 mg/dL (0.57-1.11); MAGNESIUM 1.2 mg/dL (1.6-2.6); POTASSIUM 4.2 mEq/L (3.5-4.5)
[2024-04-01] MEDS ORDERED: Magnesium Sulfate 8% 50 ML IV ONE (08:30)
[2024-04-01] MEDS ORDERED: Docusate Sodium 100 MG CAP PO SCH (09:00)
[2024-04-01] MEDS ORDERED: Polyethylene Glycol 3350 17 GM PDS PO PRN (09:00)
[2024-04-01] MEDS ORDERED: Lidocaine 4% Topical Patch TP SCH (09:03)
[2024-04-01] MEDS ORDERED: Ondansetron 4 MG TAB PO PRN (09:15)
[2024-04-01] MEDS ORDERED: Patient's Own Medication Item IT SCH (09:15)
--- NOTE | 2024-04-01 09:30 | NUR ---
Pt awake in bed. Shift assessment completed. IVF infusing into Rt forearm with no complications. Pt rates pain in lower back 5/10. PRN Tylenol offered, pt asking for something stronger as pt states Tylenol does not touch her pain. This nurse notifed PA student Ana Paula and PA student stated lidocaine patch can be placed on lower back. Dressing to Rt calf, CDI. Offered to assist pt into recliner, pt denied. Telemetry implented per protcol for magnesium infusion. PA student Ana Paula aware. Pt has no request at this time. Call light within reach and fall precautions in place.
--- NOTE | 2024-04-01 10:34 | NUR ---
SW sent clinical updates to [facility] via secure email.
--- NOTE | 2024-04-01 12:44 | NUR ---
Pt ambulated x2 assist to bedside commode. Pt passed medium size bowel movement. Pt assisted back to bed x2 assist with no complications. Cardenas catheter discontinued with tip intact, pt tolerated well with no complaints. 9 cc obtained from cardenas catheter balloon. 1300 mL of clear yellow urine emptied from cardenas catheter bag. Pericare provided. Pt has no further request. Call light within reach and fall precautions in place.
--- NOTE | 2024-04-01 13:05 | NUR ---
[facility]son at [facility] accepted referral for patient.
--- NOTE | 2024-04-01 20:30 | NUR ---
Initial shift assessment done- Alert/oriented x4, o2 at 4.5L/nc, denies SOB, when asked about pain- pt states 'Im always in severe pain in my back ", has a implanted pain pump, tele on , Hopes to get some sleep tonight , Bowel sounds are hyperactive , can hear without a stethescope-pt states it was like that last night also.
[2024-04-02] VITALS (7 sets, daily range): BP systolic 139–173; BP diastolic 70–93; PULSE 60–90; TEMP 68–98.4
[2024-04-02] MEDS ORDERED: traMADol 50 MG TAB PO PRN (04:15)
--- NOTE | 2024-04-02 04:15 | NUR ---
Pt states her back pain 03/22 , crying at times- states i cant stand it--repositioned numerous times during the night- has Purewick on,{ was very difficult to get her up to BSC, heavy ,heavy 2 assist-}- purewick is working well. Melissa ALVAREZ called regarding pain,will give tramadol- pt does have a pain pump with morphine-- Melissa ALVAREZ is aware. B/P is high at this time-- will give the Tramadol to see if it comes down.
--- NOTE | 2024-04-02 05:47 | NUR ---
pt states the tramadol did help with her pain, resting at this time, Brisa working well has had 1200cc out this shift plus one large incontinence- repositioned numerous times during the shift-
--- NOTE | 2024-04-02 07:23 | NUR ---
Bedside report received from DENNYS He. Pt resting in bed awake. technical sales support manager at bedside. Call light within reach and fall precautions in place.
[2024-04-02 07:57] LABS: HEMATOCRIT 44.3 % (37.0-47.0); MEAN CELL VOLUME 90 fl (80.0-100.0); MEAN CORPUSCULAR HEMOGLOBIN 30 pg (27-31); MEAN CORPUSCULAR HGB CONC 33 g/dl (33.0-37.0); MEAN PLATELET VOLUME 11.9 fl (7.4-10.4); PLATELET COUNT 157 K/mm3 (130-400); RED BLOOD COUNT 4.92 M/mm3 (4.10-5.30); REDCELL DISTRIBUTION WIDTH-CV 13.9 % (11.5-14.5)
[2024-04-02 08:06] LABS: HEMOGLOBIN 14.6 g/dl (12.5-16.0)
[2024-04-02 08:14] LABS: CALCIUM 8.8 mg/dL (8.4-10.2); CREATININE, serum 0.63 mg/dL (0.57-1.11); MAGNESIUM 1.5 mg/dL (1.6-2.6); POTASSIUM 3.8 mEq/L (3.5-4.5)
[2024-04-02] MEDS ORDERED: Magnesium Sulfate 2 GM/50 ML IV SOLN IV ONE (08:45)
[2024-04-02 09:06] LABS: BAND 10 % (0-10); EOSINOPHIL 6 % (0-4); HYPOCHROMIA 1+; LYMPHOCYTE 4 % (20.0-51.0); METAMYELOCYTE 1 % (0-0); NEUTROPHILS 75 % (42.0-75.2); NUCLEATED RED BLOOD CELL 1 (0-6); PLATELET ESTIMATE NORMAL (NORMAL)
[2024-04-02] MEDS ORDERED: amLODIPine 10 MG TAB PO SCH (12:18)
--- NOTE | 2024-04-02 12:51 | NUR ---
Tool Engineer sent clinical updates via secure email to Gilson at [facility]. SW updated son, Gutierrez that [facility] can accept patient. Discharge Plan; [facility] SNF
--- NOTE | 2024-04-02 17:20 | NUR ---
Notifed Dr. Nguyen that UA had not been collected and asked if still needed. Dr. Nguyen stated she did not need the urine lab any longer and instructed this nurse to cancel order.
--- NOTE | 2024-04-02 21:09 | NUR ---
Patient assessed at this time, see shift assessment, A/O, reports pain to her back PS of 7/10, medicated with tylenol and ultram, with purewick on, pericare provided, with both INT's leaking, will restart another one, repositioned patient to her right side at this time, dressing to right calf CDI, denies further needs, call light and personal items within reach, fall precautions in place, will continue to monitor.
--- NOTE | 2024-04-02 23:41 | NUR ---
Called Melissa, the POULTRY HUSBANDRY WORKER and made her aware that we failed after multiple attempts of restarting an IV and patient has due IV rocephin.
[2024-04-03] VITALS (12 sets, daily range): BP systolic 156–177; BP diastolic 84–100; PULSE 63–99; TEMP 98.1–98.7
--- NOTE | 2024-04-03 01:40 | NUR ---
Restarted IV on right upper arm by Melissa the STUNNER AND SHACKLER.
--- NOTE | 2024-04-03 04:13 | NUR ---
Called Melissa, the ASSEMBLYMAN OR WOMAN and made her aware that patient's blood pressure is on 160's overnight and still reports back pain after giving the ultram, received an order for morphine 2mg IV every 4hrs PRN.
[2024-04-03] MEDS ORDERED: Morphine 4 MG/ML VIAL IV PRN (04:15)
--- NOTE | 2024-04-03 05:52 | NUR ---
Patient reports pain is a lot better, denies further needs at this time, alonzo still working.
--- NOTE | 2024-04-03 08:30 | NUR ---
PT LAYING IN BED UPON ENTERING. ASSESSMENT DONE, MEDS GIVEN PER ORDER. INT TO RIGHT UPPER CHEST AREA PATENT. PT ON 2L NASAL CANNULA. PT REPORTS 8/10 BACK PAIN AND NOTIFIED THAT ONLY PRN AVAILABLE RIGHT NOW IS TYLENOL, PT DOESNT WANT TYLENOL AND WANTS TO WAIT FOR WHEN MORPHINE IS AVAILABLE. LIDOCIANE PATCH APPLIED TO LOWER BACK. PUREWICK IN PLACE, JADA URINE NOTED IN CANNISTER. PT REPOSITIONED ON RIGHT SIDE AND DENIES NEEDS. BED IN LOWEST POSITION, CALL LIGHT IN REACH, BED ALARM ON.
[2024-04-03] MEDS ORDERED: Losartan 50 MG TAB PO SCH (09:37)
--- NOTE | 2024-04-03 09:38 | NUR ---
PER NIGHT UNION ORGANISER UNABLE TO DRAWN ORDERED LABS
[2024-04-03 11:13] LABS: MEAN CELL VOLUME 87 fl (80.0-100.0); MEAN CORPUSCULAR HGB CONC 33 g/dl (33.0-37.0); MEAN PLATELET VOLUME 11.5 fl (7.4-10.4); PLATELET COUNT 207 K/mm3 (130-400); RED BLOOD COUNT 6.04 M/mm3 (4.10-5.30); REDCELL DISTRIBUTION WIDTH-CV 13.6 % (11.5-14.5)
[2024-04-03 11:14] LABS: HEMATOCRIT 52.4 % (37.0-47.0); HEMOGLOBIN 17.5 g/dl (12.5-16.0); MEAN CORPUSCULAR HEMOGLOBIN 29 pg (27-31)
[2024-04-03 12:13] LABS: LYMPHOCYTE 12 % (20.0-51.0); NEUTROPHILS 79 % (42.0-75.2)
[2024-04-03 12:14] LABS: METAMYELOCYTE 1 % (0-0); PLATELET ESTIMATE NORMAL (NORMAL)
[2024-04-03 12:51] LABS: CALCIUM 9.9 mg/dL (8.4-10.2); CREATININE, serum 0.66 mg/dL (0.57-1.11); POTASSIUM 3.9 mEq/L (3.5-4.5)
--- NOTE | 2024-04-03 14:19 | NUR ---
PT REPORTS NO BOWEL MOVEMENT SINCE ADMISSION AND STATES SHE USUALLY HAS DAILY BOWEL MOVEMENTS AT HOME. PRN MIRALAX GIVEN. PT EDUCATED ON CONSTIPATION RISK WITH OPIOIDS AND PT VERBALIZED UNDERSTANDING
--- NOTE | 2024-04-03 16:17 | NUR ---
Duplicator Punch Set Up Operator sent updates via secure email to Gilson at [facility].
--- NOTE | 2024-04-03 17:31 | NUR ---
DRESSING TO RIGHT CALF REMOVED, SMALL AMOUNT OF REDDISH BROWN MALODOROUS DRAINAGE NOTED. AQUACELL PLACED TO WOUND, FERMÍN PHILLIPS WOUND CARE DIESEL TRACTOR OPERATOR.
--- NOTE | 2024-04-03 20:30 | NUR ---
Initial shift assessment done- Tele on, Has been resting well this evening, refusing to be repositioned at this time, states shes comfortable - Purewick on- draining madhuri urine. O2 sats 93% on RA at this time.
[2024-04-04] VITALS (8 sets, daily range): BP systolic 106–169; BP diastolic 64–109; PULSE 62–99; TEMP 98.1–98.3
--- NOTE | 2024-04-04 03:17 | NUR ---
Pt has been refusing to turn- on specialty mattress , but was able to turn her at this time- 2 assists to right side, pt states it increases her back pain to move, encouragement given, also B/P was borderline high and RA sats 89%, put back on 1L/nc o2 and Morphine 2mg IV was given at this time for back pain- purewick is draining well
--- NOTE | 2024-04-04 07:50 | NUR ---
PT LAYING IN BED UPON ENTERING. ASSESSMENT DONE, MEDS GIVEN PER ORDER. PT REPORTS PAIN AND GIVEN PRN ULTRAM. INT TO RIGHT UPPER CHEST AREA PATENT. PT ON ROOM AIR. RIGHT LOWER EXTREMITY AQUACELL IN PLACE THAT IS CLEAN DRY AND INTACT. INTERNAL DEVICE NOTED TO RIGHT ABDOMEN, PAIN PUMP PER PT. PT DENIES NEEDS. BED IN LOWEST POSITION, CALL LIGHT IN REACH, BED ALARM ON
[2024-04-04] MEDS ORDERED: OMNICEF 300MG300 MG PO (09:11)
[2024-04-04] MEDS ORDERED: BLUE-EMU LIDOC1 EACH TP (09:12)
[2024-04-04] MEDS ORDERED: LYRICA 100MG C100 M1 PO (09:14)
--- NOTE | 2024-04-04 13:33 | NUR ---
PT IN CHAIR UPON ENTERING. PT REPORTING PAIN AND EDUCATED ON MORPHINE AND ULTRAM OPTIONS. PT ALSO STATING SHE HASNT HAD A BOWEL MOVEMENT TODAY. THIS NURSE EDUCATED PT THAT DECREASED MOBILITY AND OPIOID USE CAN BUT YOU AT A HIGHER RISK FOR CONSTIPATION. PRN ULTRAM AND MIRALAIX GIVEN. IV REMOVED AND PT DRESSED IN PERSONAL CLOTHES, PUREWICK REMOVED AND BRIEF ON. FAMILY AT BEDSIDE VIA [facility] HERE, PACKET GIVEN TO FEMALE STAFF. PTS BELONGINGS GATHERED AND TRANSFERRED TO WHEELCHAIR. CARE TAKEN OVER BY VIA [facility] FEMALE TRANSPORTER. PT AND FAMILY DENIES NEEDS.
--- NOTE | 2024-04-04 13:48 | NUR ---
REPORT GIVEN TO VASYL AT [facility], ALL QUESTIONS ANSWERED
--- NOTE | 2024-04-04 14:13 | NUR ---
Manager Ship was notified that patient is ready for discharge. SW met with patient to present and review IM. Patient is in contact isolation so patient provided verbal consent as signature after she verbalized understanding. Patient is ready to go to [facility] today and see her , Amos who is also there for a skilled stay. SW contacted Gilson at [facility] and faxed discharge orders. Transport time set for 1330. SW contacted patient's son, Gutierrez to provide the above update. Discharge Plan: [facility]
== END 2024-04-04 13:48 | DRG 871 ==
LOC: COL.ER 21:11 → ICU 23:51 → MEDICAL 23:51
PROVIDERS: Emergency Medicine; Hospitalist; Nurse Practitioner Family; Physician Assistant; ADMIT Internal Medicine
DX: A41.9 Sepsis, unspecified organism (principal); G93.41 Metabolic encephalopathy; J18.9 Pneumonia, unspecified organism; J96.01 Acute respiratory failure with hypoxia; R65.21 Severe sepsis with septic shock; N17.9 Acute kidney failure, unspecified; F03.94 Unspecified dementia, unspecified severity, with anxiety; F03.93 Unspecified dementia, unspecified severity, with mood disturbance; J90 Pleural effusion, not elsewhere classified; L97.919 Non-pressure chronic ulcer of unspecified part of right lower leg with unspecified severity; E03.9 Hypothyroidism, unspecified; G40.909 Epilepsy, unspecified, not intractable, without status epilepticus; E78.5 Hyperlipidemia, unspecified; I25.10 Atherosclerotic heart disease of native coronary artery without angina pectoris; E83.42 Hypomagnesemia; I08.0 Rheumatic disorders of both mitral and aortic valves; J45.909 Unspecified asthma, uncomplicated; Z20.822 Contact with and (suspected) exposure to COVID-19; R53.81 Other malaise; E87.5 Hyperkalemia; E11.40 Type 2 diabetes mellitus with diabetic neuropathy, unspecified; I95.9 Hypotension, unspecified; G89.29 Other chronic pain; E11.622 Type 2 diabetes mellitus with other skin ulcer; Z97.8 Presence of other specified devices; Z90.49 Acquired absence of other specified parts of digestive tract; Z90.710 Acquired absence of both cervix and uterus; Z90.89 Acquired absence of other organs; Z74.01 Bed confinement status; Z88.8 Allergy status to other drugs, medicaments and biological substances; Z91.048 Other nonmedicinal substance allergy status; Z86.73 Personal history of transient ischemic attack (TIA), and cerebral infarction without residual deficits; Z79.82 Long term (current) use of aspirin; Z79.899 Other long term (current) drug therapy; Z79.890 Hormone replacement therapy; Z23 Encounter for immunization
CPT/HCPCS: A4314; J0456; J0696; J1650; J2270; J3475; J7030; J7040; J7050

== ENCOUNTER 2024-04-30 13:06 | Inpatient (IN) | payer MEDICARE, OTHER ==
[~2024-04-30] VITALS: Ht 162.6 cm; Wt 79.5 kg
[~2024-04-30 13:06] MED LIST changes: +BENICAR 20MG TA20 MG PO; +BLUE-EMU LIDOC1 EACH TP; +DESYREL 50MG50 MG PO; +FERROUSAL325 MG PO; +LYRICA 100MG C100 M1 PO; +NAMENDA XR 28MG PO; +NORVASC 10MG10 MG PO; +PROTONIX20 MG PO; +SYNTHROID0.112 MG/T PO
[2024-04-30] MEDS ORDERED: Albuterol/Ipratropium 3 MG-0.5 MG/3 ML Neb Soln IH ONE (13:45)
[2024-04-30 13:52] LABS: BASO % 0.5 % (0.0-2.0); EOS % 0.5 % (0.0-4.0); GRAN # 2.7 K/mm3 (1.4-6.5); GRAN % 65.8 % (42.2-75.2); HEMOGLOBIN 12.8 g/dl (12.5-16.0); LYMPH # 0.7 K/mm3 (1.2-3.4); LYMPH % 17.7 % (20.0-51.0); MEAN CELL VOLUME 94 fl (80.0-100.0); MEAN CORPUSCULAR HEMOGLOBIN 30 pg (27-31); MEAN CORPUSCULAR HGB CONC 32 g/dl (33.0-37.0); MEAN PLATELET VOLUME 10.8 fl (7.4-10.4); MONO # 0.6 K/mm3 (0.1-0.6); PLATELET COUNT 149 K/mm3 (130-400); RED BLOOD COUNT 4.25 M/mm3 (4.10-5.30); REDCELL DISTRIBUTION WIDTH-CV 15.8 % (11.5-14.5)
[2024-04-30 14:11] LABS: ALBUMIN 2.9 g/dL (3.4-4.8); BILIRUBIN,TOTAL 0.3 mg/dL (0.2-1.2); CALCIUM 8.6 mg/dL (8.4-10.2); CREATININE, serum 0.82 mg/dL (0.57-1.11); POTASSIUM 3.9 mEq/L (3.5-4.5); TOTAL PROTEIN 6.1 g/dl (6.2-8.1)
[2024-04-30 14:17] LABS: TROPONIN-I 0.02 ng/mL (0.00-0.033)
[2024-04-30] MEDS ORDERED: Acetaminophen 325 MG TAB PO PRN (16:00)
[2024-04-30] MEDS ORDERED: Ondansetron 4 MG/2 ML VIAL IV PRN (16:00)
[2024-04-30] MEDS ORDERED: dexAMETHasone 10 MG/ML VIAL IV SCH (16:08)
[2024-04-30] MEDS ORDERED: NS 1,000 ML IV SCH (16:15)
[2024-04-30] MEDS ORDERED: guaiFENesin Oral Soln 200 MG/10 ML UD PO PRN (16:15)
[2024-04-30] MEDS ORDERED: cefTRIAXone 1 G in Water For Injection,Sterile 10 ML IV SCH (16:15)
[2024-04-30] MEDS ORDERED: NAMENDA 10MG TA10 MG PO (16:38)
[2024-04-30] MEDS ORDERED: NYAMYC100000 U/G TP (16:39)
[2024-04-30] MEDS ORDERED: BLUE-EMU LIDOC1 EACH TP (16:39)
[2024-04-30 17:00] VITALS: BP 119/74; PULSE 76; TEMP 99
[2024-04-30] MEDS ORDERED: Insulin Lispro (HumaLOG) SQ SCH (17:00)
[2024-04-30] MEDS ORDERED: traZODone 50 MG TAB PO PRN (17:15)
[2024-04-30] MEDS ORDERED: Nystatin Powder **** subs to Miconazole Powder TOP PRN (17:15)
--- NOTE | 2024-04-30 17:21 | NUR ---
Patient arrived to the medical unit, alert and oriented x 4, VSS. Getting 3L O2 NC sat 94%. Telemetry in place. Wound on RLE.
[2024-04-30] MEDS ORDERED: Miconazole 2% Topical Powder BOTTLE TP PRN (17:30)
--- NOTE | 2024-04-30 17:45 | NUR ---
Patient on seizure prec, low BG, orange juice provided.
[2024-04-30] MEDS ORDERED: MOBIC 7.5MG7.5 MG PO (19:01)
--- NOTE | 2024-04-30 19:20 | NUR ---
Patient resting in bed, getting fluids per orders, telemetry in place, NSR. Had her dinner. Report given to night RN. Picture taken for her RLE wound, but unable to document due to the computer for pictures not working.
[2024-04-30 19:27] VITALS: BP 99/58; PULSE 71; TEMP 97.5
--- NOTE | 2024-04-30 19:35 | NUR ---
Patient resting in bed. Rates her pain at 8/10 in her back and states this pain is chronic. Pain meds given with evening meds. Denies any needs at this time. Assessment complete. IV in right forearm infusing without complications. Call light and personal items in reach. Bed in low position and bed alarm on.
[2024-04-30] MEDS ORDERED: Albuterol 90 MCG/PUFF 8 GM MDI IH SCH (20:00)
[2024-04-30] MEDS ORDERED: Docusate Sodium 100 MG CAP PO SCH (21:00)
[2024-04-30] MEDS ORDERED: Atorvastatin 40 MG TAB PO SCH (21:00)
[2024-04-30] MEDS ORDERED: Memantine 10 MG TAB PO SCH (21:00)
[2024-04-30 22:00] VITALS: BP_SYST 99
[2024-04-30 23:03] VITALS: BP 116/52; PULSE 76; TEMP 98.6
[2024-05-01] VITALS (11 sets, daily range): BP systolic 114–139; BP diastolic 67–100; PULSE 65–93; TEMP 97.5–98.9
[2024-05-01 06:24] LABS: BASO % 0.4 % (0.0-2.0); GRAN # 1.8 K/mm3 (1.4-6.5); GRAN % 78.3 % (42.2-75.2); HEMATOCRIT 38.9 % (37.0-47.0); LYMPH # 0.4 K/mm3 (1.2-3.4); LYMPH % 15.7 % (20.0-51.0); MEAN CELL VOLUME 91 fl (80.0-100.0); MEAN CORPUSCULAR HEMOGLOBIN 30 pg (27-31); MEAN CORPUSCULAR HGB CONC 33 g/dl (33.0-37.0); MEAN PLATELET VOLUME 11.4 fl (7.4-10.4); MONO # 0.1 K/mm3 (0.1-0.6); MONO % 4.3 % (1.7-9.3); PLATELET COUNT 153 K/mm3 (130-400); RED BLOOD COUNT 4.28 M/mm3 (4.10-5.30); REDCELL DISTRIBUTION WIDTH-CV 15.1 % (11.5-14.5)
[2024-05-01 06:37] LABS: CREATININE, serum 0.69 mg/dL (0.57-1.11); POTASSIUM 4.6 mEq/L (3.5-4.5)
[2024-05-01] MEDS ORDERED: Dextrose (Glucose) 15 GM (4 x 3.75 GM) Chewable TABLET PACK PO PRN (07:15)
[2024-05-01] MEDS ORDERED: Glucagon 1 MG VIAL IM PRN (07:15)
[2024-05-01] MEDS ORDERED: Dextrose 50% Water 25 GM/50 ML SYRINGE IV PRN (07:15)
--- NOTE | 2024-05-01 07:15 | NUR ---
PATIENT RESTING IN BED. PATIENT DENIES ANY NEEDS OR COMPLAITNS AT THIS TIME. CALL LIGHT WITHIN REACH, FALL PRECAUTISN IN PLACE AND BED ALARM ON.
[2024-05-01] MEDS ORDERED: DULoxetine 60 MG CAP PO SCH (09:00)
[2024-05-01] MEDS ORDERED: Pregabalin 50 MG CAP PO SCH (09:12)
--- NOTE | 2024-05-01 12:33 | NUR ---
SW did chart review to complete initial assessment for discharge planning due to patient being covid +. Patient known to this SW from previous admissions. Patient was discharged to [facility] at last discharge and is reported to have been discharged to home with her yesterday. Patient readmitted to hospital due to covid symptoms. Patient and live in [place]. Their son Gutierrez is patient's DPOA ([phone]). Patient's Amos is also listed as DPOA but has advancing Alzheimer's dementia. Patient sees Sloan Steele as her PCP and uses [facility], [place] pharmacy. Patient uses a walker, bsc and shower chair at home. SW provided Medicare.gov list of SNF facilities. Patient is agreeable to return to [facility] at discharge, where her was taken yesterday due to patient's return to hospital. Referral sent via secure email. ELZA spoke with patient's son Gutierrez to inform of patient's decision to return to [facility]. He is in agreement. Discharge plan: SNF
--- NOTE | 2024-05-01 16:26 | NUR ---
PATIENT DENIES ANY NEEDS OR COMPLAINTS AT THIS TIME. PATEINT CURRENTLY AWAKE AND ALERT SITTING UP IN THE RECLINER. CALL LIGHT WITHINR EACH. CHAIR ALARM ON. FALL PRECAUTIONS IN PLACE.
[2024-05-01] MEDS ORDERED: Acetaminophen 325 MG TAB PO PRN ×2 (18:15)
--- NOTE | 2024-05-01 19:00 | NUR ---
Patient sitting in chair. Rates pain at 8/10 in back, states this is chronic. Needs met. Call light and personal items in reach. Bed in low position and chair alarm on.
[2024-05-02] VITALS (13 sets, daily range): BP systolic 114–143; BP diastolic 63–99; PULSE 59–124; TEMP 97.4–98.6
[2024-05-02 06:54] LABS: GRAN # 2.4 K/mm3 (1.4-6.5); GRAN % 61.2 % (42.2-75.2); HEMOGLOBIN 11.7 g/dl (12.5-16.0); LYMPH % 25.3 % (20.0-51.0); MEAN CELL VOLUME 93 fl (80.0-100.0); MEAN CORPUSCULAR HEMOGLOBIN 30 pg (27-31); MEAN CORPUSCULAR HGB CONC 32 g/dl (33.0-37.0); MEAN PLATELET VOLUME 11.6 fl (7.4-10.4); MONO # 0.5 K/mm3 (0.1-0.6); PLATELET COUNT 156 K/mm3 (130-400); RED BLOOD COUNT 3.94 M/mm3 (4.10-5.30)
[2024-05-02 07:05] LABS: HEMATOCRIT 36.5 % (37.0-47.0)
[2024-05-02 07:17] LABS: CALCIUM 8.2 mg/dL (8.4-10.2); CREATININE, serum 0.64 mg/dL (0.57-1.11); POTASSIUM 4.6 mEq/L (3.5-4.5)
[2024-05-02] MEDS ORDERED: DECADRON6 MG PO (07:21)
[2024-05-02] MEDS ORDERED: PROAIR HFA0.09 MG/AC IH ×2 (08:15→08:19)
--- NOTE | 2024-05-02 08:27 | NUR ---
Patient resting in bed, alert and orinted x 4, getting 1 L O2 NC. She has delano sporadic productive cought. States chronic pain in her back. Assessment completed, meds given. No further needs at this time. Call light within reach.
[2024-05-02] MEDS ORDERED: Lidocaine 4% Topical Patch TP SCH (09:00)
--- NOTE | 2024-05-02 13:46 | NUR ---
lay out worker secure emailed clinical updates to [facility]. Discharge plan: [facility]- SNF
--- NOTE | 2024-05-02 19:11 | NUR ---
Patient has been stable along the day. Continues getting 1 L O2 NC. Some sputum production. Report given to night RN.
--- NOTE | 2024-05-02 20:50 | NUR ---
Patient resting in bed. Denies any pain or needs at this time. Assessment complete. IV in right AC flushes easily without complications. Call light and personal items in reach. Bed in low position.
--- NOTE | 2024-05-02 21:00 | NUR ---
Patient sitting in chair. Rates pain at 8/10 in her back, prn tylenol given. Needs met. Assessment complete. IV in right forearm flushes easily without complications. Heel protectors mepilex put in place. Call light and personal items in reach. Chair alarm in place.
[2024-05-03 01:00] VITALS: BP_SYST 127
[2024-05-03 04:00] VITALS: BP 135/67; PULSE 58; TEMP 98.2
[2024-05-03 05:15] VITALS: BP_SYST 135
[2024-05-03 07:11] VITALS: BP 143/77; PULSE 59; TEMP 97.5
[2024-05-03 08:22] LABS: CALCIUM 7.8 mg/dL (8.4-10.2); CREATININE, serum 0.57 mg/dL (0.57-1.11); POTASSIUM 4.3 mEq/L (3.5-4.5)
[2024-05-03 09:00] VITALS: BP_SYST 143
--- NOTE | 2024-05-03 09:00 | NUR ---
SHIFT ASSESSMENT COMPLETED AT THIS TIME. PT A&OX4. PT AUNDREA SMITH RECLINER EATING BREAKFAST UPON ENTRANCE. PT REPORTS 6/10 PAIN LOCATED IN THE LOWER BACK AND LOWER EXTREMITIES. SCHEDULED MORNING MEDICATIONS ADMINSITERED AT THIS TIME WITHOUT COMPLICATIONS. LIDCAINE PATCH PLACED ON LOWER BACK. +1 EDEMA NOTED TO BILATERAL EXTREMITIES. FALL PRECAUIONS IN PLACE. PT IS WEARING OXYGEN AT 1L PER NC. DISCHARGE ORDERS RECIEVED AT THIS TIME. PT VOICES UNDERSTANDING. CALL LIGHT WITHIN REACH. NO FURTHER NEEDS AT THIS TIME.
--- NOTE | 2024-05-03 10:31 | NUR ---
JOB TRAINING SUPERVISOR had pt sign IM. In pt chart. JOB TRAINING SUPERVISOR was notified pt was ms to d/c. JOB TRAINING SUPERVISOR faxed d\c orders to [facility]. [place] scheduled transportation at 11:45. JOB TRAINING SUPERVISOR notified [facility] of transportation time. D/C: [facility]
--- NOTE | 2024-05-03 12:48 | NUR ---
PT DISCHARGED AT THIS TIME TO [facility] WITH [facility] STAFF VIA WHEELCHAIR. INT DC'D. TELE DC'D.
== END 2024-05-03 12:51 | DRG 177 ==
LOC: COL.ER 13:06 → MEDICAL 16:22
PROVIDERS: Family Medicine; Physician Assistant; ADMIT Internal Medicine
DX: U07.1 COVID-19 (principal); J12.82 Pneumonia due to coronavirus disease 2019; J96.01 Acute respiratory failure with hypoxia; G89.29 Other chronic pain; J02.9 Acute pharyngitis, unspecified; I25.10 Atherosclerotic heart disease of native coronary artery without angina pectoris; F32.A Depression, unspecified; F41.9 Anxiety disorder, unspecified; M54.9 Dorsalgia, unspecified; G40.909 Epilepsy, unspecified, not intractable, without status epilepticus; L89.899 Pressure ulcer of other site, unspecified stage; F03.90 Unspecified dementia, unspecified severity, without behavioral disturbance, psychotic disturbance, mood disturbance, and anxiety; R53.81 Other malaise; J45.909 Unspecified asthma, uncomplicated; I10 Essential (primary) hypertension; E78.5 Hyperlipidemia, unspecified; E11.9 Type 2 diabetes mellitus without complications; E03.9 Hypothyroidism, unspecified; Z97.8 Presence of other specified devices; Z91.048 Other nonmedicinal substance allergy status; Z88.8 Allergy status to other drugs, medicaments and biological substances; Z86.73 Personal history of transient ischemic attack (TIA), and cerebral infarction without residual deficits; Z79.82 Long term (current) use of aspirin; Z79.899 Other long term (current) drug therapy; Z79.890 Hormone replacement therapy; Z23 Encounter for immunization
CPT/HCPCS: J0696; J1100; J1650; J7030

== ENCOUNTER 2024-05-05 19:33 | Emergency (ER) | payer MEDICARE, OTHER ==
[~2024-05-05] VITALS: Ht 152.4 cm; Wt 84.4 kg
[~2024-05-05 19:33] MED LIST changes: +DECADRON6 MG PO; +MOBIC 7.5MG7.5 MG PO; +NAMENDA 10MG TA10 MG PO; +PROAIR HFA0.09 MG/AC IH
[2024-05-05 19:39] VITALS: TEMP 97.1
[2024-05-05 20:57] LABS: ALBUMIN 3.1 g/dL (3.4-4.8); BILIRUBIN,TOTAL 0.4 mg/dL (0.2-1.2); CALCIUM 8.5 mg/dL (8.4-10.2); CREATININE, serum 0.59 mg/dL (0.57-1.11); POTASSIUM 4.3 mEq/L (3.5-4.5); TOTAL PROTEIN 6.4 g/dl (6.2-8.1)
[2024-05-05 21:08] LABS: COLLECTION METHOD CATHETER
[2024-05-05 21:13] LABS: PH 8.5 (5.0-8.5); URINE APPEARANCE CLEAR (CLEAR/HAZY); URINE BLOOD NEGATIVE (NEGATIVE); URINE COLOR YELLOW (YELLOW); URINE GLUCOSE NEGATIVE (NEGATIVE); URINE KETONE 1+ (NEGATIVE); URINE NITRATE NEGATIVE (NEGATIVE); URINE PROTEIN(semi-quant) NEGATIVE (NEGATIVE); URINE UROBILINOGEN 0.2 E.U/dL (0.2-1.0)
[2024-05-05 21:39] LABS: HEMATOCRIT 44.3 % (37.0-47.0); HEMOGLOBIN 14.8 g/dl (12.5-16.0); MEAN CELL VOLUME 88 fl (80.0-100.0); MEAN CORPUSCULAR HEMOGLOBIN 30 pg (27-31); MEAN CORPUSCULAR HGB CONC 33 g/dl (33.0-37.0); MEAN PLATELET VOLUME 11.3 fl (7.4-10.4); PLATELET COUNT 154 K/mm3 (130-400); RED BLOOD COUNT 5.02 M/mm3 (4.10-5.30); REDCELL DISTRIBUTION WIDTH-CV 14.6 % (11.5-14.5)
[2024-05-05 22:40] VITALS: BP 164/105; PULSE 90
[2024-05-05 22:46] LABS: BAND 14 % (0-10); LYMPHOCYTE 21 % (20.0-51.0); METAMYELOCYTE 1 % (0-0); NEUTROPHILS 56 % (42.0-75.2)
[2024-05-05 22:47] LABS: PLATELET ESTIMATE NORMAL (NORMAL)
== END 2024-05-05 23:03 | disposition home or self-care (01) ==
LOC: COL.ER 19:33
PROVIDERS: Physician Assistant
DX: U07.1 COVID-19 (principal)

== ENCOUNTER 2024-05-07 14:07 | Emergency (ER) | payer MEDICARE, OTHER ==
[~2024-05-07] VITALS: Ht 157.5 cm; Wt 68.2 kg
[2024-05-07 14:14] VITALS: TEMP 98.5
[2024-05-07] MEDS ORDERED: Ondansetron 4 MG/2 ML VIAL IV ONE (15:45)
[2024-05-07] MEDS ORDERED: NS 500 ML IV ONE (15:45)
[2024-05-07 16:21] LABS: BASO % 0.3 % (0.0-2.0); GRAN # 3.2 K/mm3 (1.4-6.5); GRAN % 84.2 % (42.2-75.2); LYMPH # 0.5 K/mm3 (1.2-3.4); LYMPH % 11.8 % (20.0-51.0); MEAN CELL VOLUME 91 fl (80.0-100.0); MEAN CORPUSCULAR HEMOGLOBIN 30 pg (27-31); MEAN CORPUSCULAR HGB CONC 33 g/dl (33.0-37.0); MEAN PLATELET VOLUME 11.1 fl (7.4-10.4); MONO # 0.1 K/mm3 (0.1-0.6); MONO % 2.9 % (1.7-9.3); PLATELET COUNT 215 K/mm3 (130-400); RED BLOOD COUNT 5.41 M/mm3 (4.10-5.30); REDCELL DISTRIBUTION WIDTH-CV 14.5 % (11.5-14.5)
[2024-05-07 16:27] LABS: ALBUMIN 3.4 g/dL (3.4-4.8); BILIRUBIN,TOTAL 0.4 mg/dL (0.2-1.2); CALCIUM 9.4 mg/dL (8.4-10.2); CREATININE, serum 0.68 mg/dL (0.57-1.11); POTASSIUM 3.7 mEq/L (3.5-4.5); TOTAL PROTEIN 6.7 g/dl (6.2-8.1)
[2024-05-07 16:43] LABS: COLLECTION METHOD CATHETER
[2024-05-07 16:51] LABS: PH 6.5 (5.0-8.5); URINE APPEARANCE CLEAR (CLEAR/HAZY); URINE BLOOD NEGATIVE (NEGATIVE); URINE COLOR YELLOW (YELLOW); URINE GLUCOSE NEGATIVE (NEGATIVE); URINE KETONE 1+ (NEGATIVE); URINE NITRATE NEGATIVE (NEGATIVE); URINE PROTEIN(semi-quant) NEGATIVE (NEGATIVE); URINE UROBILINOGEN 0.2 E.U/dL (0.2-1.0)
[2024-05-07 18:45] VITALS: BP 143/82; PULSE 92
== END 2024-05-07 18:45 | disposition home or self-care (01) ==
LOC: COL.ER 14:07
PROVIDERS: Nurse Practitioner
DX: R53.83 Other fatigue (principal); U07.1 COVID-19
CPT/HCPCS: J2405; J7040